=== PATIENT | female | born 1945 | race Caucasian/White ===

== ENCOUNTER 2022-09-24 00:49 | Inpatient (IN) | payer BC ==
[~2022-09-24] VITALS: Ht 165.1 cm; Wt 61.9 kg
[2022-09-24] MEDS ORDERED: ONDANSETRON ODT 4 MG TAB PO ONE (02:00)
[2022-09-24 02:10] LABS: Hemoglobin 12.4 g/dL (12.2-16.2); Mean Corpuscular Volume 94.5 fL (80.0-100.0)
[2022-09-24 02:12] LABS: Hematocrit 36.3 % (36.0-46.0); Mean Corpuscular Hemoglobin 32.3 pg (28.0-32.0); Mean Corpuscular Hgb Conc. 34.1 g/dL (32.0-36.0); Red Blood Cells 3.84 10^6/uL (4.0-5.20); Red Cell Distribution Width 19.9 % (11.8-14.3); White Blood Cell 28.1 10^3/uL (4.4-10.8)
[2022-09-24 02:24] LABS: Basophils % (manual) 0 (0.0-2.0); Blast Cells 0; Eosinophils % (manual) 0 (0-7); Metamyelocytes % 0; Myelocytes % 0; Promyelocytes % 0; Reactive Lymphocytes 0
[2022-09-24 02:31] LABS: INR 1.06 (0.9-1.15); Partial Thromboplastin Time 29.1 sec (24.6-33.4)
[2022-09-24 02:36] LABS: Albumin 2.9 g/dL (3.4-5.0); Calcium 8.9 mg/dL (8.5-10.1); Potassium 3.6 mmol/L (3.5-5.1)
[2022-09-24 02:39] LABS: Bilirubin, Total 1.1 mg/dL (0.2-1.0); Total Protein 6.8 g/dL (6.4-8.2)
[2022-09-24 02:54] LABS: Band Neutrophils % (manual) 20; Lymphocytes % (manual) 5 (10.0-50.0); Monocytes % (manual) 2 (0-12)
[2022-09-24] MEDS ORDERED: PIPERACILLIN-TAZOB 3.375GM 100 ML IV ONE (04:30)
[2022-09-24] MEDS ORDERED: LACTATED RINGER'S 1,500 ML IV ONE (04:30)
[2022-09-24] MEDS ORDERED: OXYCODONE W/ ACETAMINOPHEN 5/325MG TABLET PO ONE (05:04)
[2022-09-24] MEDS: VANCOMYCIN 1GM/250ML 250 ML IV ONE ×2 (05:20→06:37)
[2022-09-24] MEDS ORDERED: VANCOMYCIN PER PHARMACY 0 MG IV SCH (07:00)
[2022-09-24] MEDS ORDERED: DOCUSATE SOD 100 MG CAP PO PRN (07:00)
[2022-09-24] MEDS ORDERED: NITROGLYCERIN 0.4 MG SL TAB SL PRN (07:00)
[2022-09-24] MEDS ORDERED: ALBUMIN 25% 100 ML IV ONE (07:00)
[2022-09-24] MEDS: PIPERACILLIN-TAZOB 3.375GM 100 ML IV SCH ×2 (07:32→15:41)
[2022-09-24 07:44] LABS: Hematocrit 32.2 % (36.0-46.0); Hemoglobin 10.6 g/dL (12.2-16.2); Mean Corpuscular Hemoglobin 31.3 pg (28.0-32.0); Red Blood Cells 3.39 10^6/uL (4.0-5.20); Red Cell Distribution Width 19.9 % (11.8-14.3); White Blood Cell 26.4 10^3/uL (4.4-10.8)
[2022-09-24 07:50] LABS: Basophils % (manual) 0 (0.0-2.0); Blast Cells 0; Eosinophils % (manual) 0 (0-7); Metamyelocytes % 0; Myelocytes % 0; Promyelocytes % 0
[2022-09-24 07:58] LABS: Albumin 2.2 g/dL (3.4-5.0); Calcium 7.9 mg/dL (8.5-10.1); Potassium 3.1 mmol/L (3.5-5.1)
[2022-09-24 08:01] LABS: Total Protein 5.5 g/dL (6.4-8.2)
[2022-09-24] MEDS: SODIUM CHLORIDE 0.9% 1,000 ML IV SCH ×2 (08:20→23:50)
[2022-09-24 09:35] LABS: Band Neutrophils % (manual) 7; Lymphocytes % (manual) 4 (10.0-50.0); Monocytes % (manual) 5 (0-12); Reactive Lymphocytes 1
[2022-09-24] MEDS: FAMOTIDINE (10MG/ML) 2ML VL IV SCH (09:41)
[2022-09-24] MEDS: APIXABAN 2.5 MG TAB PO SCH ×2 (09:42→22:11)
[2022-09-24] MEDS ORDERED: ASCORBIC ACID 500 MG TAB PO SCH (10:00)
[2022-09-24] MEDS ORDERED: ZINC SULFATE 220mg CAP or TAB PO SCH (10:00)
[2022-09-24] MEDS: MORPHINE SULFATE INJ 2 MG/ml SYRG IV PRN ×2 (12:05→18:49)
[2022-09-24] MEDS ORDERED: VANCOMYCIN 750mg/250ml 250 ML IV SCH (18:30)
[2022-09-24] MEDS: VANCOMYCIN HCL 125MG/5ML ORAL SOL PO SCH (19:30)
[2022-09-24] MEDS: metroNIDAZOLE 500MG/100ML 100 ML IV SCH (22:11)
[2022-09-24] MEDS: POTASSIUM EFFERVESENT TAB 25 MEQ PO SCH (22:11)
[2022-09-24] MEDS: HYDROcodone-ACET 5/325MG TAB PO PRN (22:48)
[2022-09-24] MEDS: ONDANSETRON HCL 4 MG/2 ML VIAL IV PRN (22:48)
[2022-09-25 00:21] VITALS: BP 92/47
[2022-09-25] MEDS: POTASSIUM EFFERVESENT TAB 25 MEQ PO SCH (02:54)
[2022-09-25] MEDS: HYDROcodone-ACET 5/325MG TAB PO PRN ×4 (02:55→21:50)
[2022-09-25 05:00] VITALS: BP 91/44
[2022-09-25] MEDS: metroNIDAZOLE 500MG/100ML 100 ML IV SCH ×3 (05:42→21:50)
[2022-09-25] MEDS: ACETAMINOPHEN 325 MG TAB PO PRN ×2 (05:42→20:10)
[2022-09-25 05:52] LABS: Basophils # (auto) 0.1 10 ^3/uL (0-0.2); Basophils % (auto) 0.3 % (0.0-2.0); Eosinophils # (auto) 0 10 ^3/uL (0-0.8); Hematocrit 34.7 % (36.0-46.0); Hemoglobin 11.3 g/dL (12.2-16.2); Lymphocytes # (auto) 1.4 10 ^3/uL (0.4-5.4); Lymphocytes % (auto) 6.7 % (10.0-50.0); Mean Corpuscular Hemoglobin 32.2 pg (28.0-32.0); Mean Corpuscular Hgb Conc. 32.6 g/dL (32.0-36.0); Mean Corpuscular Volume 98.7 fL (80.0-100.0); Monocytes # (auto) 0.8 10 ^3/uL (0-1.3); Monocytes % (auto) 4.1 % (0.0-12.0); Neutrophils # (auto) 18.1 10 ^3/uL (1.6-8.6); Neutrophils % (auto) 88.9 % (37.0-80.0); Red Blood Cells 3.51 10^6/uL (4.0-5.20); White Blood Cell 20.4 10^3/uL (4.4-10.8)
[2022-09-25 05:58] LABS: Red Cell Distribution Width 20.2 % (11.8-14.3)
[2022-09-25 06:28] LABS: Albumin 2.1 g/dL (3.4-5.0); Potassium 3.6 mmol/L (3.5-5.1)
[2022-09-25 06:34] LABS: BUN/Creatinine Ratio 17.6 (10.0-20.0); Bilirubin, Total 1.5 mg/dL (0.2-1.0); Calcium 7.8 mg/dL (8.5-10.1); Magnesium 1.3 mg/dL (1.6-2.6); Total Protein 5.4 g/dL (6.4-8.2)
[2022-09-25] MEDS: VANCOMYCIN HCL 125MG/5ML ORAL SOL PO SCH ×2 (06:42)
[2022-09-25 09:56] VITALS: BP 106/49
[2022-09-25] MEDS: ONDANSETRON HCL 4 MG/2 ML VIAL IV PRN ×3 (11:20→23:31)
[2022-09-25] MEDS: levoFLOXacin 500MG 100 ML IV SCH (11:21)
[2022-09-25] MEDS: FAMOTIDINE (10MG/ML) 2ML VL IV SCH (11:21)
[2022-09-25] MEDS: APIXABAN 2.5 MG TAB PO SCH ×2 (11:30→21:50)
[2022-09-25] MEDS: VANCOMYCIN HCL 500MG/5ML ORAL SOL PO SCH ×3 (12:00→23:32)
[2022-09-25 13:20] VITALS: BP 93/50
[2022-09-25] MEDS: SODIUM CHLORIDE 0.9% 1,000 ML IV SCH (16:55)
[2022-09-25 17:43] VITALS: BP 104/49
[2022-09-25 21:49] VITALS: BP 101/47
[2022-09-26] MEDS: HYDROcodone-ACET 5/325MG TAB PO PRN ×2 (04:28→09:01)
[2022-09-26] MEDS: ONDANSETRON HCL 4 MG/2 ML VIAL IV PRN ×3 (04:58→21:45)
[2022-09-26 05:00] VITALS: BP 102/47
[2022-09-26] MEDS: metroNIDAZOLE 500MG/100ML 100 ML IV SCH ×3 (05:27→22:08)
[2022-09-26] MEDS: VANCOMYCIN HCL 500MG/5ML ORAL SOL PO SCH ×3 (05:28→17:25)
[2022-09-26 09:00] VITALS: BP 97/49
[2022-09-26] MEDS: APIXABAN 2.5 MG TAB PO SCH ×2 (09:00→21:45)
[2022-09-26] MEDS: levoFLOXacin 500MG 100 ML IV SCH (09:01)
[2022-09-26] MEDS ORDERED: LEVOTHYROXINE SODIUM 25 MCG TAB PO ONE (10:45)
[2022-09-26] MEDS ORDERED: SODIUM CHLORIDE 0.9% 1,000 ML IV ONE (11:00)
[2022-09-26] MEDS: METOPROLOL TARTRATE 25 MG TAB PO SCH ×2 (11:00→22:37)
[2022-09-26] MEDS ORDERED: SUCRALFATE 1 GM TAB PO SCH (11:30)
[2022-09-26] MEDS: ALBUTEROL SULF 2.5 MG/0.5ML(0.5%) NEB SOLN NEB SCH ×2 (12:00→19:06)
[2022-09-26 12:31] LABS: Basophils # (auto) 0.1 10 ^3/uL (0-0.2); Basophils % (auto) 0.5 % (0.0-2.0); Eosinophils # (auto) 0 10 ^3/uL (0-0.8); Eosinophils % (auto) 0.3 % (0.0-7.0); Hematocrit 32.1 % (36.0-46.0); Hemoglobin 10.3 g/dL (12.2-16.2); Lymphocytes % (auto) 8.7 % (10.0-50.0); Mean Corpuscular Hemoglobin 31.9 pg (28.0-32.0); Mean Corpuscular Hgb Conc. 32.1 g/dL (32.0-36.0); Mean Corpuscular Volume 99.2 fL (80.0-100.0); Monocytes # (auto) 0.9 10 ^3/uL (0-1.3); Monocytes % (auto) 7.2 % (0.0-12.0); Neutrophils # (auto) 9.8 10 ^3/uL (1.6-8.6); Neutrophils % (auto) 83.3 % (37.0-80.0); Nucleated Red Blood Cells % 0.1 %; Red Blood Cells 3.24 10^6/uL (4.0-5.20); White Blood Cell 11.8 10^3/uL (4.4-10.8)
[2022-09-26 12:52] LABS: BUN/Creatinine Ratio 20.6 (10.0-20.0); Calcium 7.5 mg/dL (8.5-10.1)
[2022-09-26 12:57] LABS: Potassium 2.7 mmol/L (3.5-5.1)
[2022-09-26 13:00] VITALS: BP 100/61
[2022-09-26] MEDS: SODIUM CHLORIDE 0.9% 1,000 ML IV SCH (13:43)
[2022-09-26] MEDS ORDERED: POTASSIUM CHL 20 Meq TABLET PO ONE ×3 (14:15→18:30)
[2022-09-26] MEDS ORDERED: SOD CHL 0.9%/ KCL 40MEQ 1,000 ML IV ONE (14:15)
[2022-09-26] MEDS: ACETAMINOPHEN 325 MG TAB PO PRN (14:36)
[2022-09-26 17:00] VITALS: BP 99/54
[2022-09-26 21:46] VITALS: BP 104/80
[2022-09-26] MEDS ORDERED: PANTOPRAZOLE 40 MG TAB PO SCH (22:00)
[2022-09-26] MEDS: FLORASTOR (S. BOULARDII) 250 MG CAP PO SCH (22:37)
[2022-09-26] MEDS ORDERED: MAGNESIUM SULFATE 1GM/100ML 100 ML IV ONE (23:00)
[2022-09-27] MEDS: MAGNESIUM SULFATE 1GM/100ML 100 ML IV SCH ×4 (00:02→03:10)
[2022-09-27] MEDS: VANCOMYCIN HCL 500MG/5ML ORAL SOL PO SCH ×3 (00:59→12:10)
[2022-09-27] MEDS: ACETAMINOPHEN 325 MG TAB PO PRN (01:24)
[2022-09-27] MEDS: SODIUM CHLORIDE 0.9% 1,000 ML IV SCH (01:40)
[2022-09-27] MEDS ORDERED: MAGNESIUM SULFATE 1GM/100ML 100 ML IV SCH (02:00)
[2022-09-27 02:48] LABS: BUN/Creatinine Ratio 17.2 (10.0-20.0); Calcium 7.6 mg/dL (8.5-10.1); Potassium 3.3 mmol/L (3.5-5.1)
[2022-09-27 05:00] VITALS: BP 128/66
[2022-09-27] MEDS: metroNIDAZOLE 500MG/100ML 100 ML IV SCH ×2 (05:35→14:14)
[2022-09-27 06:09] LABS: Potassium 3.3 mmol/L (3.5-5.1)
[2022-09-27 06:12] LABS: Magnesium 2.1 mg/dL (1.6-2.6)
[2022-09-27] MEDS: ALBUTEROL SULF 2.5 MG/0.5ML(0.5%) NEB SOLN NEB SCH ×2 (06:37→12:38)
[2022-09-27 08:00] VITALS: BP 121/60
[2022-09-27] MEDS: ONDANSETRON HCL 4 MG/2 ML VIAL IV PRN ×2 (09:05→14:58)
[2022-09-27] MEDS: FLORASTOR (S. BOULARDII) 250 MG CAP PO SCH (09:05)
[2022-09-27] MEDS: APIXABAN 2.5 MG TAB PO SCH (09:06)
[2022-09-27] MEDS: METOPROLOL TARTRATE 25 MG TAB PO SCH (09:06)
[2022-09-27] MEDS: ACETAMINOPHEN PO PRN ×2 (09:07→14:59)
[2022-09-27] MEDS: OXYCODONE PO PRN ×2 (09:07→14:59)
[2022-09-27] MEDS ORDERED: buPROPion HCL 75 MG TAB PO SCH (10:00)
[2022-09-27 13:00] VITALS: BP 111/60
[2022-09-27] MEDS ORDERED: POTASSIUM EFFERVESENT TAB 25 MEQ PO ONE (14:00)
[2022-09-27] MEDS ORDERED: MET25T PO (14:17)
[2022-09-27] MEDS ORDERED: VANC125PO PO (14:17)
[2022-09-27] MEDS ORDERED: APIX2.5T PO (14:17)
== END 2022-09-27 18:45 | disposition home health service (06) | DRG 872 ==
LOC: ER 00:49 → TELE 07:24 → TELE-WESTW 23:24
PROVIDERS: ADMIT Nurse Practitioner Family; ATTEND Internal Medicine
DX: A41.9 Sepsis, unspecified organism (principal); E44.0 Moderate protein-calorie malnutrition; A04.71 Enterocolitis due to Clostridium difficile, recurrent; D75.839 Thrombocytosis, unspecified; Z20.822 Contact with and (suspected) exposure to COVID-19; E03.9 Hypothyroidism, unspecified; E86.0 Dehydration; E88.09 Other disorders of plasma-protein metabolism, not elsewhere classified; I48.0 Paroxysmal atrial fibrillation; J44.9 Chronic obstructive pulmonary disease, unspecified; I10 Essential (primary) hypertension; Z79.01 Long term (current) use of anticoagulants; Z68.22 Body mass index [BMI] 22.0-22.9, adult
CPT/HCPCS: 36415; 70450; 71045; 74176; 80048; 80053; 82962; 83690; 83735; 83880; 84132; 84484; 85007; 85025; 85027; 85610; 85730; 87040; 87045; 87081; 87426; 87427; 87493; 93005; 94640; 96365; 97110; 97116; 97163; 97530; G0378; J1956; J2405; J2543; J3490; P9047; Q0162

== ENCOUNTER 2022-12-08 22:20 | Inpatient (IN) | payer BC, MEDICAID ==
[~2022-12-08] VITALS: Ht 160 cm; Wt 55.0 kg
[~2022-12-08 22:20] MED LIST: APIX2.5T PO; MET25T PO; VANC125PO PO
[2022-12-08 23:57] LABS: Mean Corpuscular Hemoglobin 32.5 pg (28.0-32.0); Mean Corpuscular Hgb Conc. 33.4 g/dL (32.0-36.0); Mean Corpuscular Volume 97.3 fL (80.0-100.0); Red Blood Cells 4.31 10^6/uL (4.0-5.20); Red Cell Distribution Width 13.2 % (11.8-14.3); White Blood Cell 20.6 10^3/uL (4.4-10.8)
[2022-12-09] MEDS ORDERED: ACETAMINOPHEN 500 MG TAB PO ONE
[2022-12-09 00:04] LABS: Albumin 3.7 g/dL (3.4-5.0); BUN/Creatinine Ratio 21.8 (10.0-20.0); Potassium 4.1 mmol/L (3.5-5.1)
[2022-12-09 00:05] LABS: INR 1.12 (0.9-1.15); Partial Thromboplastin Time 30.7 SEC (24.5-34.5)
[2022-12-09 00:06] LABS: Bilirubin, Total 0.4 mg/dL (0.2-1.0); Total Protein 7.1 g/dL (6.4-8.2)
[2022-12-09 00:24] LABS: Basophils % (manual) 0 (0.0-2.0); Blast Cells 0; Eosinophils % (manual) 0 (0-7); Metamyelocytes % 0; Myelocytes % 0; Promyelocytes % 0; Reactive Lymphocytes 0
[2022-12-09 00:48] LABS: Urine Bacteria FEW /hpf (None Seen); Urine Blood Negative /uL (Negative); Urine WBC 1 /hpf (0 - 5)
[2022-12-09] MEDS ORDERED: VANCOMYCIN PER PHARMACY 0 MG IV SCH (01:15)
[2022-12-09] MEDS ORDERED: PIPERACILLIN-TAZO 4.5GM 100 ML IV ONE (01:15)
[2022-12-09] MEDS ORDERED: SODIUM CHLORIDE 0.9% 500 ML IV ONE (01:15)
[2022-12-09] MEDS ORDERED: IOHEXOL 350 MG/ML 100ML IJ ONE (01:38)
[2022-12-09 01:40] LABS: Band Neutrophils % (manual) 13; Lymphocytes % (manual) 9 (10.0-50.0); Monocytes % (manual) 6 (0-12)
[2022-12-09] MEDS ORDERED: OXYCODONE W/ ACETAMINOPHEN 5/325MG TABLET PO ONE (02:00)
[2022-12-09] MEDS ORDERED: VANCOMYCIN 1GM/250ML 250 ML IV ONE (02:00)
[2022-12-09] MEDS ORDERED: HYDROcodone-ACET 5/325MG TAB PO PRN (05:00)
[2022-12-09] MEDS ORDERED: ONDANSETRON HCL 4 MG/2 ML VIAL IV PRN (05:00)
[2022-12-09] MEDS ORDERED: ACETAMINOPHEN 325 MG TAB PO PRN (05:00)
[2022-12-09] MEDS ORDERED: DOCUSATE SOD 100 MG CAP PO PRN (05:00)
[2022-12-09] MEDS: SODIUM CHLORIDE 0.9% 1,000 ML IV SCH (05:44)
[2022-12-09] MEDS ORDERED: MORPHINE SULFATE INJ 2 MG/ml SYRG IV PRN (06:30)
[2022-12-09] MEDS ORDERED: NITROGLYCERIN 0.4 MG SL TAB SL PRN (06:30)
[2022-12-09 07:45] LABS: Albumin 3.5 g/dL (3.4-5.0); Calcium 8.9 mg/dL (8.5-10.1); Potassium 3.4 mmol/L (3.5-5.1)
[2022-12-09 07:50] LABS: Bilirubin, Total 0.9 mg/dL (0.2-1.0); Total Protein 7.1 g/dL (6.4-8.2)
[2022-12-09 08:00] LABS: Hematocrit 43.6 % (36.0-46.0); Hemoglobin 14.1 g/dL (12.2-16.2); Mean Corpuscular Hemoglobin 32.4 pg (28.0-32.0); Mean Corpuscular Hgb Conc. 32.5 g/dL (32.0-36.0); Mean Corpuscular Volume 99.9 fL (80.0-100.0); Red Blood Cells 4.36 10^6/uL (4.0-5.20); Red Cell Distribution Width 13.3 % (11.8-14.3); White Blood Cell 22.6 10^3/uL (4.4-10.8)
[2022-12-09 08:07] LABS: Basophils % (manual) 0 (0.0-2.0); Blast Cells 0; Eosinophils % (manual) 0 (0-7); Metamyelocytes % 0; Myelocytes % 0; Promyelocytes % 0; Reactive Lymphocytes 0
[2022-12-09 09:28] LABS: Band Neutrophils % (manual) 1; Lymphocytes % (manual) 10 (10.0-50.0); Monocytes % (manual) 5 (0-12)
[2022-12-09] MEDS: APIXABAN 2.5 MG TAB PO SCH ×2 (09:54→23:15)
[2022-12-09] MEDS ORDERED: PIPERACILLIN-TAZOB 3.375GM 100 ML IV SCH (10:00)
[2022-12-09] MEDS ORDERED: POTASSIUM CHL 20MEQ/100ML 100 ML IV ONE (11:00)
[2022-12-09] MEDS ORDERED: SODIUM CHLORIDE 0.9% 1,000 ML IV ONE (11:00)
[2022-12-09] MEDS ORDERED: IOHEXOL 300 MG/ML 100ML BOTTLE IJ ONE (11:39)
[2022-12-09] MEDS: ALBUTEROL SULF 2.5 MG/0.5ML(0.5%) NEB SOLN NEB SCH ×2 (13:00→19:21)
[2022-12-09] MEDS: metroNIDAZOLE 500MG/100ML 100 ML IV SCH ×2 (14:38→23:11)
[2022-12-09] MEDS: OXYCODONE W/ ACETAMINOPHEN 5/325MG TABLET PO PRN ×2 (14:39→20:44)
[2022-12-09] MEDS: VANCOMYCIN HCL 125MG/5ML ORAL SOL GT SCH ×3 (15:10→23:17)
[2022-12-09 16:22] VITALS: BP 94/43
[2022-12-10] MEDS: SODIUM CHLORIDE 0.9% 1,000 ML IV SCH ×2 (02:11→14:20)
[2022-12-10] MEDS: OXYCODONE W/ ACETAMINOPHEN 5/325MG TABLET PO PRN ×2 (03:37→10:17)
[2022-12-10] MEDS: VANCOMYCIN HCL 125MG/5ML ORAL SOL GT SCH ×2 (05:23→12:57)
[2022-12-10] MEDS: metroNIDAZOLE 500MG/100ML 100 ML IV SCH ×2 (05:24→14:00)
[2022-12-10 05:33] LABS: Basophils # (auto) 0 10 ^3/uL (0-0.2); Basophils % (auto) 0.2 % (0.0-2.0); Eosinophils # (auto) 0.3 10 ^3/uL (0-0.8); Eosinophils % (auto) 2.2 % (0.0-7.0); Hematocrit 37.1 % (36.0-46.0); Hemoglobin 12.4 g/dL (12.2-16.2); Lymphocytes # (auto) 1.5 10 ^3/uL (0.4-5.4); Lymphocytes % (auto) 10.6 % (10.0-50.0); Mean Corpuscular Hemoglobin 32.5 pg (28.0-32.0); Mean Corpuscular Hgb Conc. 33.5 g/dL (32.0-36.0); Mean Corpuscular Volume 97.1 fL (80.0-100.0); Monocytes # (auto) 0.8 10 ^3/uL (0-1.3); Monocytes % (auto) 5.5 % (0.0-12.0); Neutrophils # (auto) 11.8 10 ^3/uL (1.6-8.6); Neutrophils % (auto) 81.5 % (37.0-80.0); Nucleated Red Blood Cells % 0.1 %; Red Blood Cells 3.82 10^6/uL (4.0-5.20); Red Cell Distribution Width 13.3 % (11.8-14.3); White Blood Cell 14.5 10^3/uL (4.4-10.8)
[2022-12-10 05:46] LABS: Albumin 2.8 g/dL (3.4-5.0); BUN/Creatinine Ratio 20.6 (10.0-20.0); Bilirubin, Total 0.4 mg/dL (0.2-1.0); Calcium 8.6 mg/dL (8.5-10.1); Total Protein 5.9 g/dL (6.4-8.2)
[2022-12-10] MEDS ORDERED: LEVOTHYROXINE SODIUM 50 MCG TAB PO SCH (07:00)
[2022-12-10] MEDS: ALBUTEROL SULF 2.5 MG/0.5ML(0.5%) NEB SOLN NEB SCH ×3 (07:06→13:09)
[2022-12-10] MEDS ORDERED: POTASSIUM CHL 20 Meq TABLET PO SCH (10:00)
[2022-12-10] MEDS: APIXABAN 2.5 MG TAB PO SCH (10:16)
[2022-12-10 13:00] VITALS: BP 114/68
[2022-12-10] MEDS ORDERED: POTASSIUM CHL 20MEQ/100ML 100 ML IV SCH (14:00)
[2022-12-10] MEDS ORDERED: POTA-220 PO (14:01)
[2022-12-10] MEDS ORDERED: VANC125PO PO (14:01)
[2022-12-10] MEDS ORDERED: LEV50T PO (14:06)
== END 2022-12-10 16:00 | disposition home health service (06) | DRG 871 ==
LOC: EDBD 22:20 → ER 22:20 → TELE 12-09 06:20 → TELE-WESTW 12-10 13:59
PROVIDERS: ADMIT Nurse Practitioner Family; ATTEND Internal Medicine
DX: A41.9 Sepsis, unspecified organism (principal); J96.01 Acute respiratory failure with hypoxia; A04.72 Enterocolitis due to Clostridium difficile, not specified as recurrent; E03.9 Hypothyroidism, unspecified; E87.6 Hypokalemia; I10 Essential (primary) hypertension; I48.0 Paroxysmal atrial fibrillation; J43.9 Emphysema, unspecified; R26.81 Unsteadiness on feet; Z20.822 Contact with and (suspected) exposure to COVID-19; Z86.19 Personal history of other infectious and parasitic diseases
CPT/HCPCS: 36415; 36600; 71045; 74177; 80053; 81001; 82805; 83605; 83880; 84484; 85007; 85025; 85027; 85379; 85610; 85730; 87040; 87426; 87493; 87804; 94640; 96361; 96365; 96367; 96375; 97163; G0378; J2405; J2543; J3480; J3490

== ENCOUNTER 2023-06-28 13:24 | Inpatient (IN) | payer BC, MEDICAID ==
[~2023-06-28] VITALS: Ht 166.4 cm; Wt 48.4 kg
[~2023-06-28 13:24] MED LIST changes: +LEV50T PO; +POTA-220 PO
[2023-06-28 14:58] LABS: Basophils # (auto) 0.1 10 ^3/uL (0-0.2); Basophils % (auto) 0.5 % (0.0-2.0); Eosinophils # (auto) 0 10 ^3/uL (0-0.8); Eosinophils % (auto) 0.3 % (0.0-7.0); Monocytes # (auto) 0.6 10 ^3/uL (0-1.3); Nucleated Red Blood Cells % 0.1 %
[2023-06-28 15:01] LABS: Hematocrit 25.2 % (36.0-46.0); Hemoglobin 7.5 g/dL (12.2-16.2); Lymphocytes # (auto) 2.2 10 ^3/uL (0.4-5.4); Lymphocytes % (auto) 17.7 % (10.0-50.0); Mean Corpuscular Hemoglobin 22.7 pg (28.0-32.0); Mean Corpuscular Hgb Conc. 29.9 g/dL (32.0-36.0); Neutrophils # (auto) 9.4 10 ^3/uL (1.6-8.6); Neutrophils % (auto) 76.5 % (37.0-80.0); Red Blood Cells 3.32 10^6/uL (4.0-5.20); Red Cell Distribution Width 16.8 % (11.8-14.3); White Blood Cell 12.3 10^3/uL (4.4-10.8)
[2023-06-28 15:22] LABS: Alanine Aminotransferase 18 U/L (7-40); Albumin 4.2 g/dL (3.2-4.8); Alkaline Phosphatase 83 U/L (46-116); Anion Gap 5 (5-15); Aspartate Aminotransferase 23 U/L (13-40); BUN/Creatinine Ratio 22.6 (10.0-20.0); Blood Urea Nitrogen 21 mg/dL (9-23); Carbon Dioxide 34 mmol/L (20-30); Chloride 98 mmol/L (98-107); Glucose 111 mg/dL (74-106); Potassium 3.4 mmol/L (3.5-5.1); Sodium 137 mmol/L (136-145)
[2023-06-28 15:23] LABS: Bilirubin, Total 0.3 mg/dL (0.2-1.0); Total Protein 6.3 g/dL (5.7-8.2)
[2023-06-28] MEDS ORDERED: IPRATROPIUM BROM 0.5 MG/2.5ML INH SOL NEB ONE (15:45)
[2023-06-28] MEDS ORDERED: methylPREDNISolone SOD SUCC 125 MG/2 ML VL IV ONE (15:45)
[2023-06-28] MEDS ORDERED: ALBUTEROL SULF 2.5 MG/0.5ML(0.5%) NEB SOLN NEB ONE (15:45)
[2023-06-28 16:53] LABS: Base Excess 7.5 mmol/L (-2.0-2.0)
[2023-06-28 18:25] LABS: Ferritin 4.7 ng/mL (10-291)
[2023-06-28 18:26] LABS: Folate (Folic Acid) > 24.00 ng/mL (>5.38)
[2023-06-28 18:30] LABS: % Iron Saturation 3.6 % (15-50)
[2023-06-28 21:22] LABS: Urine Bacteria NONE SEEN /hpf (None Seen); Urine Blood Negative /uL (Negative); Urine Clarity Clear (Clear); Urine Color Yellow (Yellow); Urine Hyaline Cast FEW /lpf (0 - 2); Urine Protein, UAD 1+ (Negative); Urine Specific Gravity 1.025 (1.001-1.035); Urine Urobilinogen Normal (Negative); Urine WBC 2 /hpf (0 - 5); Urine pH 6.5 (5.0-8.0)
[2023-06-28 22:45] VITALS: PULSE 70; RESP 20; O2SAT 96
[2023-06-28] MEDS: ACETAMINOPHEN 325 MG TAB PO PRN (23:27)
[2023-06-28] MEDS: METOPROLOL TARTRATE 25 MG TAB PO SCH (23:27)
[2023-06-29] VITALS (14 sets, daily range): BP systolic 101–116; BP diastolic 43–68; PULSE 61–86; RESP 16–22; TEMP 97.9–98.7; O2SAT 93–100
[2023-06-29] MEDS ORDERED: MORPHINE SULFATE INJ 2 MG/ml SYRG IV PRN
[2023-06-29] MEDS: OXYCODONE W/ ACETAMINOPHEN 5/325MG TABLET PO PRN ×2 (00:10→06:41)
[2023-06-29] MEDS ORDERED: POTASSIUM EFFERVESENT TAB 25 MEQ PO ONE (01:45)
[2023-06-29] MEDS ORDERED: LEVOTHYROXINE SODIUM 25 MCG TAB PO SCH (07:00)
[2023-06-29] MEDS: ACETAMINOPHEN 325 MG TAB PO PRN (07:57)
[2023-06-29] MEDS: FERROUS SULFATE 325mg EC TAB PO SCH ×3 (08:53→18:25)
[2023-06-29] MEDS ORDERED: PANTOPRAZOLE 40 MG/10 ML VIAL INJ IV SCH (10:00)
[2023-06-29] MEDS ORDERED: SODIUM CHLORIDE LOCK 10 ML ONE (10:06)
[2023-06-29] MEDS ORDERED: LIDOCAINE VISCOUS 2% 15ML UD ONE (10:06)
[2023-06-29] MEDS ORDERED: diphenhdrAMINE HCL 50 MG/1 ML VL ONE (10:07)
[2023-06-29] MEDS ORDERED: NALOXONE HCL 0.4 MG/ML VIAL ONE (10:08)
[2023-06-29] MEDS ORDERED: FLUMAZENIL 0.1 MG/ML INJ 10ML MDV IV ONE (10:08)
[2023-06-29] MEDS ORDERED: SIMETHICONE 40 MG/0.6 ML ORAL DROP ONE (10:13)
[2023-06-29] MEDS: PANTOPRAZOLE 40mg/50ML NS AE 50 ML IV SCH ×3 (10:46→18:15)
[2023-06-29] MEDS: METOPROLOL TARTRATE 25 MG TAB PO SCH (10:49)
[2023-06-29 11:42] LABS: Eosinophils # (auto) 0 10 ^3/uL (0-0.8)
[2023-06-29 11:44] LABS: Basophils # (auto) 0 10 ^3/uL (0-0.2); Basophils % (auto) 0.3 % (0.0-2.0); Eosinophils % (auto) 0.2 % (0.0-7.0); Hematocrit 26.6 % (36.0-46.0); Lymphocytes # (auto) 2.4 10 ^3/uL (0.4-5.4); Lymphocytes % (auto) 20.4 % (10.0-50.0); Mean Corpuscular Hemoglobin 23.5 pg (28.0-32.0); Mean Corpuscular Hgb Conc. 30.2 g/dL (32.0-36.0); Mean Corpuscular Volume 77.7 fL (80.0-100.0); Monocytes # (auto) 0.9 10 ^3/uL (0-1.3); Monocytes % (auto) 7.7 % (0.0-12.0); Neutrophils # (auto) 8.4 10 ^3/uL (1.6-8.6); Neutrophils % (auto) 71.4 % (37.0-80.0); Red Blood Cells 3.42 10^6/uL (4.0-5.20); Red Cell Distribution Width 16.7 % (11.8-14.3); White Blood Cell 11.8 10^3/uL (4.4-10.8)
[2023-06-29 11:50] LABS: Chloride 96 mmol/L (98-107); Sodium 134 mmol/L (136-145)
[2023-06-29 11:51] LABS: Anion Gap 5 (5-15); Calcium 9.4 mg/dL (8.5-10.1); Carbon Dioxide 33 mmol/L (20-30)
[2023-06-29 11:56] LABS: BUN/Creatinine Ratio 17.7 (10.0-20.0); Blood Urea Nitrogen 23 mg/dL (9-23); Glucose 81 mg/dL (74-106)
[2023-06-29] MEDS ORDERED: IRON SUCROSE COMPLEX 100 ML IV SCH (12:00)
[2023-06-29 12:11] LABS: INR 1.04 (0.9-1.15); Partial Thromboplastin Time 22.8 SEC (24.5-34.5); Prothrombin Time 10.9 sec (9.3-11.8)
[2023-06-29] MEDS: fentaNYL CITRATE 100 MCG/2 ML VL ONE ×2 (13:04→13:09)
[2023-06-29] MEDS: MIDAZOLAM HCL 5 MG/ML-1ML VIAL ONE ×2 (13:04→13:09)
[2023-06-29] MEDS ORDERED: POLY335015 PO (17:09)
[2023-06-29] MEDS ORDERED: FER325T PO (17:09)
[2023-06-29] MEDS ORDERED: DOCU-94 PO (17:09)
[2023-06-29] MEDS ORDERED: SUCR1TAB22 PO (17:09)
[2023-06-29] MEDS ORDERED: PANT40T PO (17:09)
== END 2023-06-29 20:30 | disposition home health service (06) | DRG 812 ==
LOC: ER 13:24 → TELE 17:30 → TELE-CENTR 23:38
PROVIDERS: ADMIT Internal Medicine; ATTEND Internal Medicine
PROC: 30233N1 Transfusion of Nonautologous Red Blood Cells into Peripheral Vein, Percutaneous Approach (ICD-10-PCS; 2023-06-29)
PROC: 0DB78ZX Excision of Stomach, Pylorus, Via Natural or Artificial Opening Endoscopic, Diagnostic (ICD-10-PCS; principal; 2023-06-29 12:59)
DX: D50.9 Iron deficiency anemia, unspecified (principal); J96.10 Chronic respiratory failure, unspecified whether with hypoxia or hypercapnia; K31.5 Obstruction of duodenum; K31.1 Adult hypertrophic pyloric stenosis; K31.84 Gastroparesis; I48.0 Paroxysmal atrial fibrillation; E03.9 Hypothyroidism, unspecified; G89.4 Chronic pain syndrome; F41.9 Anxiety disorder, unspecified; J43.9 Emphysema, unspecified; R13.10 Dysphagia, unspecified; I10 Essential (primary) hypertension; M54.50 Low back pain, unspecified; Z96.649 Presence of unspecified artificial hip joint; Z90.49 Acquired absence of other specified parts of digestive tract; Z79.01 Long term (current) use of anticoagulants; Z99.81 Dependence on supplemental oxygen; Z80.0 Family history of malignant neoplasm of digestive organs
CPT/HCPCS: 36415; 36600; 43239; 71045; 80048; 80053; 81001; 82270; 82607; 82728; 82746; 82805; 83540; 83550; 83605; 83880; 84484; 85025; 85379; 85610; 85730; 86850; 86900; 86901; 86920; 93005; 94640; 96374; 97163; G0378; J1756; J2250

== ENCOUNTER 2024-03-01 13:33 | Emergency (ER) | payer BC, MEDICAID ==
[~2024-03-01] VITALS: Ht 162.6 cm; Wt 56.0 kg
[~2024-03-01 13:33] MED LIST changes: -APIX2.5T PO; +DOCU-94 PO; +FER325T PO; -LEV50T PO; +LEVO-848 PO; +PANT40T PO; +POLY335015 PO; -POTA-220 PO; +SUCR1TAB31 PO; -VANC125PO PO
[2024-03-01 14:32] LABS: Eosinophils # (auto) 0 10 ^3/uL (0-0.8); Hemoglobin 10.2 g/dL (12.2-16.2); Lymphocytes # (auto) 1.1 10 ^3/uL (0.4-5.4); Monocytes # (auto) 0.6 10 ^3/uL (0-1.3); Red Cell Distribution Width 14.2 % (11.8-14.3)
[2024-03-01 14:34] LABS: Basophils # (auto) 0.1 10 ^3/uL (0-0.2); Basophils % (auto) 0.5 % (0.0-2.0); Eosinophils % (auto) 0.2 % (0.0-7.0); Hematocrit 30.2 % (36.0-46.0); Lymphocytes % (auto) 8.8 % (10.0-50.0); Mean Corpuscular Hemoglobin 37.7 pg (28.0-32.0); Mean Corpuscular Hgb Conc. 33.9 g/dL (32.0-36.0); Mean Corpuscular Volume 111.1 fL (80.0-100.0); Monocytes % (auto) 4.5 % (0.0-12.0); Platelet Count (auto) 474 10^3/uL (140-450); Red Blood Cells 2.72 10^6/uL (4.0-5.20); White Blood Cell 12.7 10^3/uL (4.4-10.8)
[2024-03-01 14:48] LABS: Base Excess 4.8 mmol/L (-2.0-3.0)
[2024-03-01 14:49] LABS: Alanine Aminotransferase 15 U/L (7-40); Albumin 4.1 g/dL (3.2-4.8); Alkaline Phosphatase 83 U/L (46-116); Anion Gap 5 (5-15); Aspartate Aminotransferase 16 U/L (13-40); BUN/Creatinine Ratio 22.5 (10.0-20.0); Blood Urea Nitrogen 20 mg/dL (9-23); Calcium 9.7 mg/dL (8.7-10.4); Carbon Dioxide 34 mmol/L (20-30); Chloride 100 mmol/L (98-107); Glucose 113 mg/dL (74-106); Potassium 3.3 mmol/L (3.5-5.1); Sodium 139 mmol/L (136-145)
[2024-03-01 14:50] LABS: Bilirubin, Total 0.2 mg/dL (0.2-1.0); Total Protein 6.3 g/dL (5.7-8.2)
[2024-03-01] MEDS: IPRATROPIUM BROM 0.5 MG/2.5ML INH SOL NEB ONE (15:24)
[2024-03-01] MEDS: ALBUTEROL SULF 2.5 MG/0.5ML(0.5%) NEB SOLN NEB ONE (15:24)
[2024-03-01] MEDS: methylPREDNISolone SOD SUCC 125 MG/2 ML VL IM ONE (15:34)
[2024-03-01 15:39] VITALS: RESP 18; O2SAT 100
[2024-03-01] MEDS: levoFLOXacin 500MG 100 ML IV SCH (16:15)
[2024-03-01] MEDS ORDERED: LEVO500T91 PO (17:20)
[2024-03-01] MEDS ORDERED: PRED20TA2 PO (17:22)
[2024-03-01 18:10] VITALS: BP 105/62; PULSE 63; RESP 18; TEMP 97.8; O2SAT 100
== END 2024-03-01 18:15 | disposition home or self-care (01) ==
LOC: ER 13:33
DX: J44.1 Chronic obstructive pulmonary disease with (acute) exacerbation (principal); D72.829 Elevated white blood cell count, unspecified; E87.3 Alkalosis; R06.03 Acute respiratory distress; I10 Essential (primary) hypertension; Z90.49 Acquired absence of other specified parts of digestive tract
CPT/HCPCS: 36415; 36600; 71045; 80053; 82805; 83605; 83880; 84484; 85025; 85379; 93005; 94640; 96372; 99285; J2919

== ENCOUNTER 2024-03-12 12:37 | Inpatient (IN) | payer BC, MEDICAID ==
[~2024-03-12] VITALS: Ht 167.6 cm; Wt 56.5 kg
[~2024-03-12 12:37] MED LIST changes: +LEVO500T91 PO; +PRED20TA2 PO
[2024-03-12 14:31] LABS: Basophils # (auto) 0.1 10 ^3/uL (0-0.2); Eosinophils # (auto) 0 10 ^3/uL (0-0.8); Monocytes # (auto) 0.4 10 ^3/uL (0-1.3); Monocytes % (auto) 2.1 % (0.0-12.0); Nucleated Red Blood Cells % 0.1 %
[2024-03-12 14:32] LABS: Basophils % (auto) 0.4 % (0.0-2.0); Hematocrit 34.3 % (36.0-46.0); Hemoglobin 11.3 g/dL (12.2-16.2); Lymphocytes # (auto) 1.2 10 ^3/uL (0.4-5.4); Lymphocytes % (auto) 6.4 % (10.0-50.0); Mean Corpuscular Hemoglobin 36.2 pg (28.0-32.0); Mean Corpuscular Hgb Conc. 32.9 g/dL (32.0-36.0); Mean Corpuscular Volume 109.9 fL (80.0-100.0); Neutrophils # (auto) 17.3 10 ^3/uL (1.6-8.6); Neutrophils % (auto) 91.1 % (37.0-80.0); Platelet Count (auto) 625 10^3/uL (140-450); Red Blood Cells 3.12 10^6/uL (4.0-5.20); Red Cell Distribution Width 14.1 % (11.8-14.3)
[2024-03-12 15:11] LABS: Alanine Aminotransferase 20 U/L (7-40); Albumin 4.2 g/dL (3.2-4.8); Alkaline Phosphatase 65 U/L (46-116); Anion Gap 7 (5-15); Aspartate Aminotransferase 14 U/L (13-40); BUN/Creatinine Ratio 24.1 (10.0-20.0); Bilirubin, Total 0.2 mg/dL (0.2-1.0); Blood Urea Nitrogen 20 mg/dL (9-23); Calcium 10.2 mg/dL (8.7-10.4); Carbon Dioxide 30 mmol/L (20-30); Chloride 99 mmol/L (98-107); Glucose 136 mg/dL (74-106); Potassium 4.5 mmol/L (3.5-5.1); Sodium 136 mmol/L (136-145)
[2024-03-12] MEDS ORDERED: methylPREDNISolone SOD SUCC 125 MG/2 ML VL IV ONE (15:30)
[2024-03-12] MEDS: ALBUTEROL SULF 2.5 MG/0.5ML(0.5%) NEB SOLN ONE (15:36)
[2024-03-12] MEDS: IPRATROPIUM BROM 0.5 MG/2.5ML INH SOL ONE (15:36)
[2024-03-12] MEDS: IPRATROPIUM BROM 0.5 MG/2.5ML INH SOL NEB ONE (16:00)
[2024-03-12] MEDS: ALBUTEROL SULF 2.5 MG/0.5ML(0.5%) NEB SOLN NEB ONE (16:00)
[2024-03-12 18:18] LABS: Base Excess 4.5 mmol/L (-2.0-3.0)
[2024-03-12 18:29] VITALS: PULSE 103; RESP 18; O2SAT 98
[2024-03-12] MEDS: ALBUTEROL SULF 2.5 MG/0.5ML(0.5%) NEB SOLN NEB SCH (18:29)
[2024-03-12] MEDS: IPRATROPIUM BROM 0.5 MG/2.5ML INH SOL NEB SCH (18:29)
[2024-03-12 18:35] VITALS: PULSE 106; RESP 18; O2SAT 99
[2024-03-12 19:20] VITALS: PULSE 103; RESP 18; O2SAT 98
[2024-03-12] MEDS ORDERED: methylPREDNISolone SOD SUCC 40 MG/ML VL IV SCH (22:00)
[2024-03-12 22:19] VITALS: RESP 16; O2SAT 99
[2024-03-12] MEDS: DOXYCYCLINE 100 MG TAB/CAP PO SCH (22:24)
[2024-03-13] VITALS (13 sets, daily range): BP systolic 97–121; BP diastolic 51–60; PULSE 69–94; RESP 16–19; TEMP 36.4; O2SAT 92–100
[2024-03-13] MEDS: HYDROcodone-ACET 5/325MG TAB PO ONE (00:23)
[2024-03-13] MEDS: methylPREDNISolone SOD SUCC 40 MG/ML VL IV SCH (03:12)
[2024-03-13] MEDS: ACETAMINOPHEN 325 MG TAB PO PRN (06:18)
[2024-03-13] MEDS: ONDANSETRON HCL 4 MG/2 ML VIAL IV PRN (06:28)
[2024-03-13] MEDS ORDERED: DOXY100C79 PO (08:46)
[2024-03-13] MEDS ORDERED: PRED20TA2 PO ×2 (08:46→14:44)
[2024-03-13] MEDS: HYDROcodone-ACET 5/325MG TAB PO PRN (10:32)
[2024-03-13] MEDS ORDERED: PANTOPRAZOLE 40 MG TAB PO ONE (15:00)
[2024-03-13] MEDS: PANTOPRAZOLE 40 MG TAB PO SCH (15:48)
[2024-03-14] MEDS ORDERED: LEVOTHYROXINE SODIUM 25 MCG TAB PO SCH (06:00)
[2024-03-14] MEDS ORDERED: PANTOPRAZOLE 40 MG TAB PO SCH (06:00)
== END 2024-03-13 17:32 | disposition home health service (06) | DRG 189 ==
LOC: ER 12:37 → TELE 17:08 → TELE-EAST 23:40
PROVIDERS: ADMIT Internal Medicine; ATTEND Internal Medicine
DX: J96.21 Acute and chronic respiratory failure with hypoxia (principal); J44.1 Chronic obstructive pulmonary disease with (acute) exacerbation; I10 Essential (primary) hypertension; E03.9 Hypothyroidism, unspecified; K21.9 Gastro-esophageal reflux disease without esophagitis; M54.50 Low back pain, unspecified; G89.29 Other chronic pain; D50.9 Iron deficiency anemia, unspecified; I48.91 Unspecified atrial fibrillation; Z79.01 Long term (current) use of anticoagulants; Z90.49 Acquired absence of other specified parts of digestive tract; Z99.81 Dependence on supplemental oxygen; Z82.0 Family history of epilepsy and other diseases of the nervous system; Z82.49 Family history of ischemic heart disease and other diseases of the circulatory system; Z80.0 Family history of malignant neoplasm of digestive organs
CPT/HCPCS: 36415; 36600; 71045; 80053; 82805; 83880; 84484; 85025; 87040; 94640; G0378; J2405

== ENCOUNTER 2024-04-14 10:47 | Inpatient (IN) | payer BC, MEDICAID ==
[~2024-04-14] VITALS: Ht 167.6 cm; Wt 61.0 kg
[~2024-04-14 10:47] MED LIST changes: +DOXY100C79 PO; -LEVO500T91 PO
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
[2024-04-14 11:31] LABS: Basophils # (auto) 0 10 ^3/uL (0-0.2); Eosinophils # (auto) 0 10 ^3/uL (0-0.8); Hemoglobin 8.8 g/dL (12.2-16.2); Monocytes # (auto) 0.3 10 ^3/uL (0-1.3); Monocytes % (auto) 1.3 % (0.0-12.0)
[2024-04-14 11:33] LABS: Basophils % (auto) 0.1 % (0.0-2.0); Hematocrit 28.2 % (36.0-46.0); Lymphocytes # (auto) 0.6 10 ^3/uL (0.4-5.4); Lymphocytes % (auto) 2.9 % (10.0-50.0); Mean Corpuscular Hemoglobin 35.2 pg (28.0-32.0); Mean Corpuscular Hgb Conc. 31.2 g/dL (32.0-36.0); Neutrophils # (auto) 19.5 10 ^3/uL (1.6-8.6); Neutrophils % (auto) 95.7 % (37.0-80.0); Nucleated Red Blood Cells % 0.4 %; Platelet Count (auto) 514 10^3/uL (140-450); Red Blood Cells 2.49 10^6/uL (4.0-5.20); Red Cell Distribution Width 16.3 % (11.8-14.3); White Blood Cell 20.4 10^3/uL (4.4-10.8)
[2024-04-14] MEDS: methylPREDNISolone SOD SUCC 125 MG/2 ML VL IV ONE (11:34)
[2024-04-14 11:42] LABS: Alanine Aminotransferase 16 U/L (7-40); Alkaline Phosphatase 71 U/L (46-116); Anion Gap 7 (5-15); Aspartate Aminotransferase 9 U/L (13-40); BUN/Creatinine Ratio 34.9 (10.0-20.0); Blood Urea Nitrogen 29 mg/dL (9-23); Calcium 9.2 mg/dL (8.7-10.4); Carbon Dioxide 29 mmol/L (20-31); Chloride 102 mmol/L (98-107); Glucose 150 mg/dL (74-106); Sodium 138 mmol/L (136-145)
[2024-04-14 11:43] LABS: Albumin 3.5 g/dL (3.2-4.8); Bilirubin, Total 0.2 mg/dL (0.2-1.0); Total Protein 5.5 g/dL (5.7-8.2)
[2024-04-14] MEDS: SODIUM CHLORIDE 0.9% 500 ML IV ONE (11:49)
--- NOTE | 2024-04-14 12:19 | DVH ---
CLINICAL INFORMATION: 78 years old, Female; .shortness of breath TECHNIQUE: Single AP portable chest radiograph was obtained. COMPARISON: XY CHEST PORTABLE on DOS: 03/12/24, XY CHEST PORTABLE on DOS: 03/01/24, XY CHEST PORTABLE o n DOS: 06/28/23 FINDINGS: Lungs: Emphysematous changes with hyperaeration of the lungs and flattening of the diaphragm. Patchy opacities in the right lung base, possible developing consolidation in the appropriate clinical setti ng. Mild atelectasis in the left lung base. Cardiac: Heart size is within normal limits. Pulmonary vasculature: Unremarkable. Mediastinum/tanner: Unremarkable. Bones: No acute osseous abnormality identified. Other: No other significant findings. IMPRESSION: 1. Patchy opacities in the right lung base, possible developing consolidation. 2. Emphysematous changes.
[2024-04-14 12:22] LABS: Urine Bacteria None Seen /hpf (None Seen)
[2024-04-14 12:30] LABS: COVID19 ANTIGEN SOFIA FIA NEGATIVE (NEGATIVE); Rapid Influenza A Negative (Negative); Rapid Influenza B Negative (Negative)
[2024-04-14 12:32] LABS: Urine Blood Negative /uL (Negative); Urine Clarity Clear (Clear); Urine Color Light-Yellow (Yellow); Urine Protein, UAD Negative (Negative); Urine Specific Gravity 1.027 (1.001-1.035); Urine Urobilinogen Normal (Negative); Urine WBC 1 /hpf (0 - 5); Urine pH 6.5 (5.0-9.0)
[2024-04-14] MEDS: cefTRIAXone 1GM/50ML D5W 50 ML IV ONE (12:34)
[2024-04-14 13:00] VITALS: PULSE 65; RESP 12; O2SAT 94
[2024-04-14] MEDS: ONDANSETRON HCL 4 MG/2 ML VIAL IV ONE ×2 (13:33→17:28)
[2024-04-14] MEDS: MORPHINE SULFATE INJ 2 MG/ml SYRG IV ONE (17:32)
[2024-04-14 19:20] VITALS: PULSE 96; RESP 17; O2SAT 98
[2024-04-14] MEDS ORDERED: NITROGLYCERIN 0.4 MG SL TAB SL PRN (20:00)
[2024-04-14] MEDS ORDERED: MORPHINE SULFATE INJ 2 MG/ml SYRG IV PRN (20:00)
[2024-04-14] MEDS ORDERED: DOCUSATE SOD 100 MG CAP PO PRN (20:00)
[2024-04-14] MEDS: SODIUM CHLORIDE 0.9% 1,000 ML IV SCH (20:30)
[2024-04-14] MEDS: HYDROcodone-ACET 5/325MG TAB PO PRN (21:42)
[2024-04-14] MEDS: methylPREDNISolone SOD SUCC 40 MG/ML VL IV SCH (22:14)
[2024-04-15] MEDS: ACETAMINOPHEN 325 MG TAB PO PRN (00:41)
[2024-04-15 04:48] LABS: Basophils # (auto) 0 10 ^3/uL (0-0.2); Basophils % (auto) 0.2 % (0.0-2.0); Eosinophils # (auto) 0 10 ^3/uL (0-0.8); Lymphocytes # (auto) 0.5 10 ^3/uL (0.4-5.4); Neutrophils % (auto) 93.8 % (37.0-80.0); Nucleated Red Blood Cells % 0.2 %
[2024-04-15 04:49] LABS: Hematocrit 23.2 % (36.0-46.0); Hemoglobin 7.4 g/dL (12.2-16.2); Lymphocytes % (auto) 4.7 % (10.0-50.0); Mean Corpuscular Hemoglobin 36.8 pg (28.0-32.0); Monocytes # (auto) 0.1 10 ^3/uL (0-1.3); Monocytes % (auto) 1.3 % (0.0-12.0); Neutrophils # (auto) 10.2 10 ^3/uL (1.6-8.6); Platelet Count (auto) 393 10^3/uL (140-450); Red Blood Cells 2.02 10^6/uL (4.0-5.20); White Blood Cell 10.9 10^3/uL (4.4-10.8)
[2024-04-15] MEDS: cefTRIAXone 1GM/50ML D5W 50 ML IV SCH (09:48)
[2024-04-15] MEDS: AZITHROMYCIN 500MG/ 250ML 250 ML IV SCH (09:56)
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
[2024-04-15] MEDS: SODIUM CHLORIDE 0.9% 1,000 ML IV ONE (12:04)
[2024-04-15] MEDS: ONDANSETRON HCL 4 MG/2 ML VIAL IV ONE (12:24)
[2024-04-15] MEDS: SUCRALFATE 1 GM TAB PO SCH (12:24)
[2024-04-15] MEDS: FERROUS SULFATE 325mg EC TAB PO SCH (12:25)
[2024-04-15] MEDS: LEVOTHYROXINE SODIUM 50 MCG TAB PO SCH (12:25)
[2024-04-15] MEDS ORDERED: ALBUTEROL SULF 2.5 MG/0.5ML(0.5%) NEB SOLN NEB PRN (12:30)
[2024-04-15 12:33] VITALS: BP 100/47; PULSE 72; RESP 20; TEMP 98.2; O2SAT 98
--- NOTE | 2024-04-15 14:39 | ECG ---
[facility] Test Date: 2024-04-14 Test Time: 11:12:24 Pat Name: MILES TOWNSEND Department: ER Room: [facility]6T Gender: F [facility] Aide: PANCHITO : 1945 Requested By: DONNIE CARMONA Order Number: [id number] Reading MD: Alberto Ruff Measurements Intervals [place] Rate: 70 P: 64 WI: 148 QRS: 62 QRSD: 106 T: 59 QT: 369 QTc: 399 Interpretive Statements Sinus rhythm Borderline repolarization abnormality Baseline wander in lead(s) II,III,aVF,V1,V4,V5 Electronically Signed On 04-18-2024 14:25:38 PDT by Alberto Ruff Please click the below link to view image of tracing.
[2024-04-15 15:20] VITALS: BP 110/48; PULSE 82; RESP 24; TEMP 97.6; O2SAT 95
[2024-04-15 15:54] VITALS: PULSE 82; RESP 24; O2SAT 95
[2024-04-15] MEDS ORDERED: FLUT1AER17 IN (17:14)
[2024-04-15] MEDS ORDERED: LIDO5PAD12 EX (17:18)
[2024-04-15] MEDS ORDERED: APIX2.5T PO (18:14)
[2024-04-15 18:59] VITALS: O2SAT 94
[2024-04-15 20:00] VITALS: PULSE 75; PULSE 79; RESP 17; O2SAT 95
[2024-04-15 21:00] VITALS: BP 132/36; PULSE 78; RESP 17; TEMP 97.5; O2SAT 95
[2024-04-15] MEDS: PANTOPRAZOLE 40 MG TAB PO SCH (22:28)
[2024-04-16] VITALS (11 sets, daily range): BP systolic 91–128; BP diastolic 5–76; PULSE 75–83; RESP 16–22; TEMP 97.4–98.2; O2SAT 94–100
[2024-04-16] MEDS ORDERED: ONDA-155 PO (05:05)
[2024-04-16] MEDS ORDERED: APIX2.5T PO (05:07)
[2024-04-16] MEDS ORDERED: AMIO200T33 PO (05:09)
[2024-04-16 05:39] LABS: Basophils # (auto) 0 10 ^3/uL (0-0.2); Basophils % (auto) 0.1 % (0.0-2.0); Eosinophils # (auto) 0 10 ^3/uL (0-0.8); Hematocrit 22.9 % (36.0-46.0); Hemoglobin 7.3 g/dL (12.2-16.2); Lymphocytes # (auto) 0.6 10 ^3/uL (0.4-5.4); Lymphocytes % (auto) 5.7 % (10.0-50.0); Mean Corpuscular Hemoglobin 36.9 pg (28.0-32.0); Mean Corpuscular Hgb Conc. 32.1 g/dL (32.0-36.0); Monocytes # (auto) 0.6 10 ^3/uL (0-1.3); Monocytes % (auto) 5.4 % (0.0-12.0); Neutrophils # (auto) 9.2 10 ^3/uL (1.6-8.6); Neutrophils % (auto) 88.8 % (37.0-80.0); Platelet Count (auto) 394 10^3/uL (140-450); Red Blood Cells 1.99 10^6/uL (4.0-5.20); White Blood Cell 10.4 10^3/uL (4.4-10.8)
[2024-04-16] MEDS: ONDANSETRON HCL 4 MG/2 ML VIAL IV PRN (05:42)
[2024-04-16] MEDS ORDERED: BUPR-346 PO (06:27)
[2024-04-16] MEDS ORDERED: HYDR-3682 PO (06:29)
[2024-04-16] MEDS ORDERED: POTA-215 PO (06:30)
--- NOTE | 2024-04-16 06:30 | PRN ---
Misceleneous Note Note Note April 15, 2024 GI consultation: Reason for consultation: Anemia Referring provider: Vik History of Present Illness The patient is a 78-year-old female with a past medical history significant for atrial fibrillation, hypothyroidism, GERD, anemia, history of blockage in her stomach or intestine, followed at [facility], history of endoscopy and colonoscopy within the last year, admitted with shortness of breath for 2 days found to be anemic. She denies any gross bleeding. Patient does not take any anticoagulation, denies taking significant aspirin or NSAID use. Patient takes iron for her anemia and takes medications for her stomach in gastrointestinal issues. Patient denies any GI surgeries. He denies dysphagia or odynophagia, denies melena hematochezia or hematemesis Past Medical history As per HPI Past surgical History: Hip surgery Back surgery Tonsillectomy Social Hx No tobacco, alcohol or recreational drug use Allergies: NKDA Family history: Brother with pancreatic cancer Home medications: Prednisolone Carafate Iron, levothyroxine Metoprolol Pantoprazole Review of systems: 12 point review of systems negative other than HPI Vital Signs Date Time Temp Pulse Resp B/P (MAP) Pulse Ox O2 Delivery O2 Flow Rate FiO2 04/16/24 05:00 97.6 78 18 98/57 (71) 100 97.6 04/15/24 20:00 Nasal Cannula* 2 28 General: Alert and oriented x4 HEENT: Normocephalic atraumatic extraocular movements were intact Heart: Regular rate and rhythm Lungs: Clear to auscultation anteriorly Abdomen: Soft nontender nondistended Extremity no clubbing cyanosis or edema Laboratory Tests Test 04/14/24 11:08 04/14/24 11:46 04/14/24 12:01 04/14/24 12:08 Range/Units White Blood Count 20.4 H 4.4-10.8 10^3/uL Red Blood Count 2.49 L 4.0-5.20 10^6/uL Hemoglobin 8.8 L 12.2-16.2 g/dL Hematocrit 28.2 L 36.0-46.0 % Mean Corpuscular Volume 113.0 H 80.0-100.0 fL Mean Corpuscular Hemoglobin 35.2 H 28.0-32.0 pg Mean Corpuscular Hemoglobin Concent 31.2 L 32.0-36.0 g/dL Red Cell Distribution Width 16.3 H 11.8-14.3 % Platelet Count 514 H 140-450 10^3/uL Mean Platelet Volume 6.7 L 6.9-10.8 fL Neutrophils (%) (Auto) 95.7 H 37.0-80.0 % Lymphocytes (%) (Auto) 2.9 L 10.0-50.0 % Monocytes (%) (Auto) 1.3 0.0-12.0 % Eosinophils (%) (Auto) 0.0 0.0-7.0 % Basophils (%) (Auto) 0.1 0.0-2.0 % Neutrophils # (Auto) 19.5 H 1.6-8.6 10 ^3/uL Lymphocytes # (Auto) 0.6 0.4-5.4 10 ^3/uL Monocytes # (Auto) 0.3 0-1.3 10 ^3/uL Eosinophils # (Auto) 0 0-0.8 10 ^3/uL Basophils # (Auto) 0 0-0.2 10 ^3/uL Nucleated Red Blood Cells 0.4 % Sodium Level 138 136-145 mmol/L Potassium Level 4.0 3.5-5.1 mmol/L Chloride Level 102 98-107 mmol/L Carbon Dioxide Level 29 20-31 mmol/L Anion Gap 7 5-15 Blood Urea Nitrogen 29 H 9-23 mg/dL Creatinine 0.83 0.550-1.02 mg/dL Glomerular Filtration Rate Calc 73 >90 mL/min BUN/Creatinine Ratio 34.9 H 10.0-20.0 Serum Glucose 150 H 74-106 mg/dL Lactic Acid Level 1.3 0.4-2.0 mmol/L Calcium Level 9.2 8.7-10.4 mg/dL Total Bilirubin 0.2 0.2-1.0 mg/dL Aspartate Amino Transferase (AST) 9 L 13-40 U/L Alanine Aminotransferase (ALT) 16 7-40 U/L Alkaline Phosphatase 71 46-116 U/L Troponin I High Sensitivity 17 16 </=34 ng/L B-Type Natriuretic Peptide 133.31 0-100 pg/mL Total Protein 5.5 L 5.7-8.2 g/dL Albumin 3.5 3.2-4.8 g/dL Influenza Type A Antigen Negative Negative Influenza Type B Antigen Negative Negative SARS-CoV-2 Antigen (Rapid) Negative NEGATIVE Urine Color Light-yellow Yellow Urine Clarity Clear Clear Urine pH 6.5 5.0-9.0 Urine Specific [place] 1.027 1.001-1.035 Urine Protein Negative Negative Urine Ketones Negative Negative Urine Blood Negative Negative /uL Urine Nitrite Negative Negative Urine Bilirubin Negative Negative Urine Urobilinogen Normal Negative mg/dL Urine Leukocyte Esterase Negative Negative /uL Urine RBC <1 0 - 4 /hpf Urine WBC 1 0 - 5 /hpf Urine Squamous Epithelial Cells Few <5 /hpf Urine Bacteria None seen None Seen /hpf Urine Glucose Normal Normal mg/dL Test 04/14/24 14:07 04/15/24 04:37 04/15/24 22:49 04/16/24 05:05 Range/Units Troponin I High Sensitivity 17 </=34 ng/L White Blood Count 10.9 #H 10.4 4.4-10.8 10^3/uL Red Blood Count 2.02 L 1.99 L 4.0-5.20 10^6/uL Hemoglobin 7.4 #L 7.3 L 12.2-16.2 g/dL Hematocrit 23.2 #L 22.9 L 36.0-46.0 % Mean Corpuscular Volume 115.0 H 115.0 H 80.0-100.0 fL Mean Corpuscular Hemoglobin 36.8 H 36.9 H 28.0-32.0 pg Mean Corpuscular Hemoglobin Concent 32.0 32.1 32.0-36.0 g/dL Red Cell Distribution Width 17.0 H 18.0 H 11.8-14.3 % Platelet Count 393 394 140-450 10^3/uL Mean Platelet Volume 6.5 L 6.5 L 6.9-10.8 fL Neutrophils (%) (Auto) 93.8 H 88.8 H 37.0-80.0 % Lymphocytes (%) (Auto) 4.7 L 5.7 L 10.0-50.0 % Monocytes (%) (Auto) 1.3 5.4 0.0-12.0 % Eosinophils (%) (Auto) 0.0 0.0 0.0-7.0 % Basophils (%) (Auto) 0.2 0.1 0.0-2.0 % Neutrophils # (Auto) 10.2 H 9.2 H 1.6-8.6 10 ^3/uL Lymphocytes # (Auto) 0.5 0.6 0.4-5.4 10 ^3/uL Monocytes # (Auto) 0.1 0.6 0-1.3 10 ^3/uL Eosinophils # (Auto) 0 0 0-0.8 10 ^3/uL Basophils # (Auto) 0 0 0-0.2 10 ^3/uL Nucleated Red Blood Cells 0.2 0.0 % Hepatitis B Surface Antigen Pending Hepatitis C Antibody Pending Stool Occult Blood Positive Negative Stool Occult Blood Sample #3 Negative Impression: # occult blood positive stool # anemia, multifactorial, with macrocytic anemia as well as iron-deficiency # history of intestinal blockage, question ulceration versus inflammatory bowel disease versus other Recommendations: 1. Retrieve records from [facility] 2, Follow H&H and transfuse 3. We will check vitamin B12 levels 4. Consider no GI sources of anemia 5. Continue with ferrous sulfate and GI medications for now 6. Consider EGD and/or colonoscopy ASUNCION ARMIJO MD Apr 16, 2024 06:30
[2024-04-16] MEDS ORDERED: HYDR25TA4 PO (06:31)
[2024-04-16] MEDS ORDERED: MID10T GT (06:36)
[2024-04-16] MEDS ORDERED: BUPR5DIS TD (06:36)
[2024-04-16] MEDS ORDERED: FLUT1AER3 IN (06:36)
[2024-04-16] MEDS ORDERED: MELA3TAB27 PO (06:39)
[2024-04-16] MEDS ORDERED: ALBU2TAB11 PO (06:39)
[2024-04-16] MEDS ORDERED: [UNRECOGNIZED DRUG - CODE] PO (06:39)
[2024-04-16] MEDS: predniSONE 20 MG TAB PO SCH (10:27)
[2024-04-16 11:25] LABS: % Iron Saturation 12.7 % (15-50)
[2024-04-16 12:18] LABS: Folate (Folic Acid) 16.51 ng/mL (>5.38)
[2024-04-16 12:19] LABS: Ferritin 17.5 ng/mL (10-291)
[2024-04-16] MEDS: [UNRECOGNIZED DRUG - OTHER] IN SCH (16:44)
[2024-04-17] VITALS (11 sets, daily range): BP systolic 96–124; BP diastolic 56–80; PULSE 62–93; RESP 14–19; TEMP 97.5–98.3; O2SAT 90–100
[2024-04-17] MEDS: LEVOTHYROXINE SODIUM 25 MCG TAB PO SCH (06:31)
[2024-04-17 07:19] LABS: INR 1.06 (0.9-1.15); Partial Thromboplastin Time 23.6 SEC (24.5-34.5); Prothrombin Time 11.2 sec (9.3-11.8)
[2024-04-17 07:24] LABS: Basophils # (auto) 0 10 ^3/uL (0-0.2); Basophils % (auto) 0.1 % (0.0-2.0); Eosinophils # (auto) 0 10 ^3/uL (0-0.8); Eosinophils % (auto) 0.1 % (0.0-7.0); Lymphocytes # (auto) 0.7 10 ^3/uL (0.4-5.4); Monocytes # (auto) 0.5 10 ^3/uL (0-1.3); Red Cell Distribution Width 22.4 % (11.8-14.3)
[2024-04-17 07:27] LABS: Hematocrit 29.9 % (36.0-46.0); Hemoglobin 9.5 g/dL (12.2-16.2); Mean Corpuscular Hemoglobin 34.8 pg (28.0-32.0); Mean Corpuscular Hgb Conc. 31.9 g/dL (32.0-36.0); Mean Corpuscular Volume 109.3 fL (80.0-100.0); Monocytes % (auto) 5.9 % (0.0-12.0); Neutrophils # (auto) 7.7 10 ^3/uL (1.6-8.6); Neutrophils % (auto) 85.9 % (37.0-80.0); Nucleated Red Blood Cells % 0.1 %; Platelet Count (auto) 404 10^3/uL (140-450); Red Blood Cells 2.74 10^6/uL (4.0-5.20); White Blood Cell 8.9 10^3/uL (4.4-10.8)
--- NOTE | 2024-04-17 08:27 | DVH ---
EXAM: XY CHEST PORTABLE Indication: pain Technique: Single frontal view of the chest was obtained Comparison: XY CHEST PORTABLE on DOS: 04/14/24, XY CHEST PORTABLE on DOS: 03/12/24, XY CHEST PORTABLE on DOS: 03/01/24, XY CHEST PORTABLE on DOS: 06/28/23, XY CHEST PORTABLE on DOS: 12/09/22 FINDINGS: Lines and Tubes: None Lungs: Bibasilar opacities. Pleura: No effusion. No pneumothorax. Cardiomediastinal contours: Unremarkable. Atherosclerotic vascular calcifications of the thoracic ao rta are noted. Bones: No acute osseous abnormality. IMPRESSION: Bibasilar opacities.
[2024-04-17 12:12] LABS: Base Excess -0.5 mmol/L (-2.0-3.0)
[2024-04-17] MEDS ORDERED: LIDOCAINE VISCOUS 2% 15ML UD ONE (14:56)
[2024-04-17] MEDS ORDERED: PROPOFOL 100 ML IV ONE (14:56)
--- NOTE | 2024-04-17 15:16 | DVHOP2 ---
Operative Report DATE OF OPERATION: 04/17/24 PROCEDURE: Upper Endoscopy with biopsy. PREOPERATIVE INDICATION: The patient is a 78 -year-old female undergoing endoscopy for anemia and history of peptic ulcer disease POSTOPERATIVE DIAGNOSES: 1. Patient had a large area of healing ulceration in the pre-pyloric area and an trum possibly at the site of previous endoscopic dilation or endo cut area. There was an overlying eschar but no visible vessel or active bleeding 2. Bfrb-cc-obkhzbor gastritis and multiple biopsies were obtained of the stomach and around the gastric ulcer area 3. Evidence of a postbulbar duodenal stricture without active bleeding or ulceration beyond which the endoscope could not be advanced with a pulse stricture duodenal bulb appeared to be normal and duodenal biopsies were obtained 4. 1 cm sliding-type hiatal hernia with grade a erosive esophagitis from with GE junction biopsies were obtained 5. There was omet-al-efhrdejs gastroparesis with retained bile and some gastric food contents in the stomach likely due to postbulbar duodenal stricture which were aspirated PROCEDURE PERFORMED BY: Temi Prado GI NURSE: Flower SCOPE: Olympus videoendoscope. ASA CLASS: 3. PREOPERATIVE MEDICATIONS: Dr. Parminder Eng PROCEDURE IN DETAIL: After obtaining an informed consent, the patient was placed on left lateral decubitus position. The patient was then sedated with the above medications. A bite block was placed between her teeth. The endoscope was then passed through the oropharynx, into the esophagus, and through the stomach and pylorus up to the bulb were area at which point there was a postbulbar duodenal stricture benign inflammatory The duodenum beyond this postbulbar stricture appeared to be normal and some duodenal biopsies were obtained. The duodenal bulb was dilated. The endoscope was then withdrawn. Patient had a large area of healing ulceration in the pre-pyloric area and antrum. This appeared to be possibly related to a previous gastric procedure possibly an endo cut due to pyloric channel stricture. There was overlying eschar but no bleeding vessel and no fresh or old blood in the stomach Patient had retained gastric food contents and ordered amount of bile which was aspirated. Gastric biopsies were obtained. Patient is likely having partial gastric outlet obstruction due to the postbulbar stricture The endoscope was then withdrawn into the distal esophagus where the patient had a 1 cm sliding-type hiatal hernia with grade a erosive esophagitis. GE junction biopsies were obtained. The remaining distal and proximal esophagus and oropharynx were unremarkable. The patient tolerated the procedure well without difficulty. COMPLICATIONS : None SPECIMENS: Duodenal biopsy Gastric biopsies GE junction biopsies DISPOSITION: Transfer back to the floor Stable PLAN: 1. Await for biopsy result 2. Will place pt on Protonix 40 mg bid 3. Carafate suspension 1 g p.o. 4 times a day 4. I would recommend that this patient stay on a full liquid or a pureed diet only 5. DC aspirin NSAIDs smoking alcohol 6. Outpatient follow up with GI Services for further management and decision regarding referral back to [facility] for dilation of the postbulbar stricture 7. If the patient will need periodic endoscopies for surveillance and if she has a nonhealing antral gastric ulcer then she may need surgical intervention in the future TEMI PRADO MD Apr 17, 2024 15:16
[2024-04-17] MEDS ORDERED: SUCR1TAB31 PO (17:08)
[2024-04-17] MEDS ORDERED: DOXY1CAP58 PO (17:08)
[2024-04-17] MEDS ORDERED: PANT40T PO (17:08)
[2024-04-17] MEDS ORDERED: DOCU-265 PO (17:09)
[2024-04-17] MEDS ORDERED: FER325T PO (17:09)
--- NOTE | 2024-04-17 17:35 | DVHDS2 ---
Discharge Summary Date of Admission Apr 14, 2024 at 19:57 Date of Discharge: Apr 17, 2024 Brief Hx & Hospital Course: This is a 78-year-old female with a past medical history who presented with complaint of shortness of bed diagnosed with acute on chronic COPD exacerbation admitted for further evaluation and management. Hospital course complicated by development of acute symptomatic anemia with positive stool for occult blood. Anemia likely multifactorial in the setting of iron deficiency anemia. No evidence of gross blood loss and patient remained hemodynamically and clinically stable. She responded well to transfusion of 1 unit of packed RBC. GI consultation appreciated and patient underwent upper endoscopy with findings of "1. Patient had a large area of healing ulceration in the pre-pyloric area and antrum possibly at the site of previous endoscopic dilation or endo cut area. There was an overlying eschar but no visible vessel or active bleeding 2. Frhn-ni-sqgjnlmu gastritis and multiple biopsies were obtained of the stomach and around the gastric ulcer area 3. Evidence of a postbulbar duodenal stricture without active bleeding or ulceration beyond which the endoscope could not be advanced with a pulse stricture duodenal bulb appeared to be normal and duodenal biopsies were obtained 4. 1 cm sliding-type hiatal hernia with grade a erosive esophagitis from with GE junction biopsies were obtained 5. There was yopm-fy-vavsvukr gastroparesis with retained bile and some gastric food contents in the stomach likely due to postbulbar duodenal stricture which were aspirated' with recommendations for "1. Await for biopsy result 2. Will place pt on Protonix 40 mg bid 3. Carafate suspension 1 g p.o. 4 times a day 4. I would recommend that this patient stay on a full liquid or a pureed diet only 5. DC aspirin NSAIDs smoking alcohol 6. Outpatient follow up with GI Services for further management and decision regarding referral back to [facility] for dilation of the postbulbar stricture 7. If the patient will need periodic endoscopies for surveillance and if she has a nonhealing antral gastric ulcer then she may need surgical intervention in the future." . She tolerating liquid diet well. She is requesting to go home. She is ambulating well without assistance. Old Dr. Prado recommendations discussed with patient's and reinforced with her and her sought, per patient consent. Both verbalized agreement and understanding. They also verbalized agreement and understanding that noncompliance can lead to discomfort, disability, deterioration and/or . Per nurse, home supp lemental oxygen has been arranged. No major events reported overnight. Patient denies complaints of fevers, chills, change in appetite, chest pain, palpitations, cough, shortness of breath, dyspnea on exertion, abdominal pain, nausea, vomiting, diarrhea, constipation, dysuria, lightheadedness, weakness, paresthesia or other complaints. Last bowel movement was yesterday, brown, soft, no melena, no hematochezia. Physical Exam: General: This is a 78-year-old female appearing stated age in no acute distress. Vital Signs Date Time Temp Pulse Resp B/P (MAP) Pulse Ox O2 Delivery O2 Flow Rate FiO2 04/17/24 15:35 71 18 123/58 (79) 97 04/17/24 15:12 98.4 04/17/24 15:12 Nasal Cannula 2.0 04/17/24 15:12 100 HEENT: Pupils equal and reactive to light and accommodation. Extraocular muscles intact. Mucous membranes moist. Conjunctivae [place]. Anicteric Sclera. Lungs: Bilateral air entry; no wheezes, rhonchi, rales. Heart: Regular Rate and Rhythm. Normal S1/S2. Abdomen: Bowel Sounds Normoactive, soft, non-tender, non-distended, no cva tenderness. Extremities: No clubbing, cyanosis, edema. No calf tenderness. Pedal pulses 2+. Neurologic: Patient alert, awake and oriented x 3. Cranial nerves II through XII intact. No focal deficits on gross sensorimotor exam. Discharge disposition Patient stable for discharge per discharge order if discharge order criteria are met. Patient verbalized agreement and understanding that should patient have any new recurrent or worsening symptoms, patient should seek medical attention immediately. Patient verbalized agreement and understanding of current status and plan as well as plan of care for followup. Patient verbalized agreement and understanding that if patient does not follow my discharge medication reconciliation and discharge instructions, patient is at risk for, but not limited to, discomfort, disability, deterioration and/or . This medical document was created using an electronic medical record system with [employer] system. Although this document has been carefully reviewed, there may still be some phonetic and typographical errors. These areas are purely typographical due to imperfections of the software programs, and do not reflect any compromise in the patient's medical care Condition at Discharge: Stable Final Diagnosis/Problems List Acute on chronic COPD exacerbation. Chronic respiratory failure on home oxygen therapy. Iron Deficiency Anemia. Peptic ulcer disease. Discharge Disposition: Home with Health Services Discharge Instruct/Medications Diet: See Comment Diet comment: Full Liquid Diet UNTIL follow up with Gastroenterology, Dr. Prado Activity: No Restrictions, As Tolerated Follow Up/Referral: Discharge home. Follow up with PCP in 3-5 days. Follow up with the [facility] for upper endoscopy and dilatation. Follow up with GI Service, Dr. Prado for endoscopic surveillance. Follow up any biopsies obtained during endoscopy during hospital stay with PCP and Dr. Prado. Repeat iron panel and complete blood count in four weeks with patient's primary care physician. Medications: Please refer to discharge medication reconciliation. Patient counseled at length with regards to the purpose, benefits and risks of all new medications and/or medication adjustments. Patient verbalized agreement and understanding. Medications given/sent electronically to pharmacy. Discharge Statement: "Patient was advised to return to the ER or call 911 if any headaches, dizziness, shortness of breath, chest pain, abdominal pain, bleeding, fevers, or worsening of medical condition. Patient was counseled about treatment plan, medications, possible side effects, patientverbalized understanding. All questions were answered to the best of my ability. This discharge took greater then 30 minutes in planning, reviewing documentation, counseling the patient, and discussing with other team members." ASSESSMENT ASSESSMENT Assessment RIDDHI RANGEL MD Apr 17, 2024 17:35
[2024-04-18 09:49] LABS: Hepatitis B Surface Antigen Negative (Negative)
[2024-04-18 10:12] LABS: Hepatitis C Antibody Negative (Negative)
--- NOTE | 2024-04-21 09:27 | ECG ---
[facility] Test Date: 2024-04-17 Test Time: 05:42:04 Pat Name: MILES TOWNSEND Department: Respiratoy Room: [facility]6T A Gender: F Manager Ct: Esther : 1945 Requested By: SIS RANGEL Order Number: [id number] Reading MD: Corinne Dominique Measurements Intervals [place] Rate: 73 P: 63 SC: 164 QRS: 15 QRSD: 91 T: 34 QT: 393 QTc: 433 Interpretive Statements Sinus rhythm Atrial premature complex Nonspecific T abnormalities, anterior leads Electronically Signed On 04-22-2024 17:23:30 PST by Corinne Dominique Please click the below link to view image of tracing.
--- NOTE | 2024-04-21 09:27 | ECG ---
[facility] Test Date: 2024-04-17 Test Time: 05:40:04 Pat Name: MILES TOWNSEND Department: Respiratoy Room: [facility]6T A Gender: F End User Consultant: Esther : 1945 Requested By: SIS RANGEL Order Number: [id number] Reading MD: Corinne Dominique Measurements Intervals [place] Rate: 73 P: 61 DC: 169 QRS: 34 QRSD: 94 T: 57 QT: 439 QTc: 484 Interpretive Statements Sinus rhythm Nonspecific T abnrm, anterolateral leads Baseline wander in lead(s) V1 Electronically Signed On 04-22-2024 17:23:28 PST by Corinne Dominique Please click the below link to view image of tracing.
== END 2024-04-17 20:40 | disposition home health service (06) | DRG 377 ==
LOC: ER 10:47 → TELE 19:57 → TELE-WESTW 04-15 16:07
PROVIDERS: ADMIT Internal Medicine; ATTEND Internal Medicine
PROC: 30233N1 Transfusion of Nonautologous Red Blood Cells into Peripheral Vein, Percutaneous Approach (ICD-10-PCS; 2024-04-16)
PROC: 0DB68ZX Excision of Stomach, Via Natural or Artificial Opening Endoscopic, Diagnostic (ICD-10-PCS; 2024-04-17)
PROC: 0DB48ZX Excision of Esophagogastric Junction, Via Natural or Artificial Opening Endoscopic, Diagnostic (ICD-10-PCS; 2024-04-17)
PROC: 0DB98ZX Excision of Duodenum, Via Natural or Artificial Opening Endoscopic, Diagnostic (ICD-10-PCS; principal; 2024-04-17 14:49)
DX: K25.4 Chronic or unspecified gastric ulcer with hemorrhage (principal); J96.21 Acute and chronic respiratory failure with hypoxia; K21.01 Gastro-esophageal reflux disease with esophagitis, with bleeding; J44.1 Chronic obstructive pulmonary disease with (acute) exacerbation; K31.5 Obstruction of duodenum; J44.0 Chronic obstructive pulmonary disease with (acute) lower respiratory infection; K22.11 Ulcer of esophagus with bleeding; D50.9 Iron deficiency anemia, unspecified; I10 Essential (primary) hypertension; R73.9 Hyperglycemia, unspecified; Z20.822 Contact with and (suspected) exposure to COVID-19; E03.9 Hypothyroidism, unspecified; K44.9 Diaphragmatic hernia without obstruction or gangrene; K31.84 Gastroparesis; Z90.49 Acquired absence of other specified parts of digestive tract; Z79.2 Long term (current) use of antibiotics; Z79.899 Other long term (current) drug therapy; Z99.81 Dependence on supplemental oxygen; Z79.52 Long term (current) use of systemic steroids; Z80.0 Family history of malignant neoplasm of digestive organs; Z87.11 Personal history of peptic ulcer disease
CPT/HCPCS: 36415; 36600; 71045; 80053; 81001; 82270; 82607; 82728; 82746; 82805; 83540; 83550; 83605; 83880; 84484; 85025; 85610; 85730; 86803; 86850; 86900; 86901; 86920; 87040; 87340; 87426; 87804; 93005; 97110; 97116; 97163; 99291; G0378; J2405; J2704

== ENCOUNTER 2024-05-10 19:05 | Inpatient (IN) | payer BC, MEDICAID ==
[~2024-05-10] VITALS: Ht 167.6 cm; Wt 58.4 kg
[2024-05-10] MEDS: SODIUM CHLORIDE 0.9% 1,000 ML IV SCH (01:00)
[~2024-05-10 19:05] MED LIST changes: +ALBU2TAB11 PO; +AMIO200T33 PO; +BUPR-346 PO; +BUPR5DIS TD; +DOCU-265 PO; -DOCU-94 PO; -DOXY100C79 PO; +DOXY1CAP58 PO; +FLUT1AER3 IN; +HYDR-3682 PO; +LIDO5PAD12 EX; +ONDA-155 PO; -POLY335015 PO
--- NOTE | 2024-05-10 19:32 | ED.PDOC ---
Foreign Body HPI Comments 78 year old female came to ER due to possible foreign body aspiration. Patient was discharged here last Apr 17 and was diagnosed to have 1. Acute on chronic COPD exacerbation, 2. Chronic respiratory failure on home oxygen therapy., 3. Iron Deficiency Anemia., 4. Peptic ulcer disease. She underwent endoscopy with biopsy last Apr 17 also. Patient was on liquid diet when about an hour ago she ate a salmon sandwich and started throwing up and retching afterwards. Was advised to go to the ER for possible aspiration. Chief Complaint: Foreign Body Time Seen by MD: 19:45 Primary Care Provider: RADHAMES History of Present Illness: Nurses Notes Allergies: Coded Allergies: NO KNOWN ALLERGIES (Unverified , 09/24/22) Home Meds Active Scripts Docusate Sodium (Docusate Sodium) 100 Mg Cap, 100 MG PO BID PRN, #28 CAP Prov:RIDDHI RANGEL MD 04/17/24 Ferrous Sulfate (Ferrous Sulfate) 325 Mg Tab, 325 MG PO BIDAC, #60 TAB Prov:RIDDHI RANGEL MD 04/17/24 Doxycycline (Monohydrate) (Doxycycline) 100 Mg Cap, 100 MG PO BID, #14 CAP Prov:RIDDHI RANGEL MD 04/17/24 Sucralfate (CARAFATE) 1 Gm Tab, 1 GM PO Q6HR, #120 TAB Prov:RIDDHI RANGEL MD 04/17/24 Pantoprazole Sodium Sesquihydr (Pantoprazole Sodium) 40 Mg Tab, 40 MG PO BID, #60 TAB Prov:RIDDHI RANGEL MD 04/17/24 Prednisone (Prednisone) 20 Mg Tab, 20 MG PO UD, #38 MG Take 60mg by mouth dailyx3 days then 50mg dailyx3 days then 40mg dailyx3 days then 30mg dailyx3 days then 20mg dailyx7 days then 10mg daily x 7 days Prov:RIDDHI RANGEL MD 03/13/24 Ferrous Sulfate (Ferrous Sulfate) 325 Mg Tab, 325 MG PO TIDWM, #90 TAB Prov:RIDDHI RANGEL MD 06/29/23 Levothyroxine Sodium (SYNTHROID TABLET) 50 Mcg Tb, 25 MCG PO DAILY, #30 MG Prov:SIS RANGEL MD 12/10/22 Metoprolol Tartrate (Lopressor) 25 Mg Tb, 12.5 MG PO BID, #15 TAB Prov:RIDDHI RANGEL MD 09/27/22 Reported Medications Albuterol Sulfate (Albuterol Sulfate) 2 Mg Tab, 2 MG PO Q6HP PRN for SHORTNESS OF BREATH, MG 04/16/24 Lulbsgdsnce-Ruaiuibugvyc-Eovqx (Trelegy Ellipta 100-62.5-25 Mcg/INH) 1 Aer Aer, 1 AER IN DAILY, AER 04/16/24 Buprenorphine (BUTRANS) 5 Mcg/Hr Dis, 15 MCG TD BID, DIS 04/16/24 Hydroxyzine Hcl (Hydroxyzine Hcl) 25 Mg Tab, 25 MG PO BID for 30 Days, MG 04/16/24 Bupropion Hcl (Bupropion Hcl) 100 Mg Tab, 150 MG PO DAILY for 30 Days, MG 04/16/24 Amiodarone Hcl (Amiodarone Hcl) 200 Mg Tab, 200 MG PO DAILY for 30 Days 04/16/24 Ondansetron HCl (Ondansetron) 4 Mg Tab, 4 MG PO TID, TAB 04/16/24 Lidocaine (Lidocaine Patch 5%) 5 % Pad, 5 % EX [id number], PAD 04/15/24 Information Source: Patient Mode of Arrival: Wheelchair Timing: Minutes Duration: Since onset Severity: Moderate Ability to handle secretions: Difficult Prehospital treatment: None Location: Throat, Esophagus Context: Ingestion Foreign Body: Food Associated signs and symptoms: Pain, SOB Past Medical History PAST MEDICAL HISTORY: AFIB, Anemia, COPD, GERD, HTN, Thyroid Surgical History: Cholecystectomy, Hernia Repair, Tonsillectomy [employer] History: Denies all [employer] Hx Family History Family History: Reviewed,noncontributory to illness, Family hx of heart sigrid Social History Smoker: Non-Smoker, Quit Greater Than 1 Year Alcohol: Denies ETOH Use Drugs: Denies Drug Use Lives In: Home Constitutional: denies: chills, diaphoresis, fatigue, fever, malaise, sweats, weakness, others EENTM: denies: blurred vision, double vision, ear bleeding, ear discharge, ear drainage, ear pain, ear ringing, eye pain, eye redness, hearing loss, mouth pain, mouth swelling, nasal discharge, nose bleeding, nose congestion, nose pain, photophobia, tearing, throat pain, throat swelling, voice changes, others Respiratory: reports: cough, shortness of breath, SOB with excertion; denies: hemoptysis, orthopnea, SOB at rest, stridor, wheezing, others Cardiovascular: denies: chest pain, dizzy spells, diaphoresis, Dyspnea on exertion, edema, irregular heart beat, left arm pain, lightheadedness, palpitations, PND, syncope, others Gastrointestinal: reports: nausea, vomiting; denies: abdomen distended, abdominal pain, blood streaked bowels, constipated, diarrhea, dysphagia, difficulty swallowing, hematemesis, melena, poor appetite, poor fluid intake, rectal bleeding, rectal pain, others Genitourinary: denies: abnormal vagina bleeding, burning, dyspareunia, dysuria, flank pain, frequency, hematuria, incontinence, pain, , vagina discharge, urgency, others Neurological: denies: dizziness, fainting, headache, left sided numbness, left sided weakness, numbness, paresthesia, pre-existing deficit, right sided numbness, right sided weakness, seizure, speech problems, tingling, tremors, weakness, others Musculoskeletal: denies: back pain, gout, joint pain, joint swelling, muscle pain, muscle stiffness, neck pain, others Integumetry: denies: bruises, change in color, change in hair/nails, dryness, laceration, lesions, lumps, rash, wounds, others Allergic/Immunocompromised: denies: Difficulty Healing, Frequent Infections, Hives, Itching, others Hematologic/Lymphatic: denies: anemia, blood clots, easy bleeding, easy bruising, swollen glands, others Endocrine: denies: excessive hunger, excessive sweating, excessive thirst, excessive urination, flushing, intolerance to cold, intolerance to heat, unexplained weight gain, unexplained weight loss, others Psychiatric: denies: anxiety, bipolar disorder, depression, hopeless, panic disorder, schizophrenia, sleepless, suicidal, others Physical Exam General Appearance: No Apparent Distress, Normal HEENT: Normal ENT Inspection, Pharynx Normal, TMs Normal Neck: Full Range of Motion, Non-Tender, Normal, Normal Inspection Respiratory: Chest Non-Tender, Lungs Clear, No Accessory Muscle Use, No Respiratory Distress, Normal Breath Sounds Cardiovascular: No Edema, No JVD, No Murmur, No Gallop, Normal Peripheral Pulses, Regular Rate/Rhythm Breast Exam: Deferred Gastrointestinal: No Organomegaly, Non Tender, No Pulsatile Mass, Normal Bowel Sounds, Soft Genitalia: Deferred Pelvic: Deferred Rectal: Deferred Extremities: No calf tenderness, Normal capillary refill, Normal inspection, Normal range of motion, Non-tender, No pedal edema Musculoskeletal : Apperance: Normal Neurologic: Alert, comptroller II-XII nml as Tested, No Motor Deficits, Normal Affect, Normal Mood, No Sensory Deficits Cerebellar Function: Normal Reflexes: Normal Skin: Dry, Normal Color, Warm Lymphatic: No Adenopathy Was a procedure done? Was a procedure done?: No FB Differential Dx Differential Diagnosis: Airway Obstruction, Esophageal Obstruction, Foreign Body X-Ray, Labs, Meds, VS Vital Signs Date Time Temp Pulse Resp B/P (MAP) Pulse Ox O2 Delivery O2 Flow Rate FiO2 05/10/24 19:28 97.7 67 18 95/61 (72) 91 Lab Test 05/10/24 19:49 05/10/24 19:44 Range/Units White Blood Count 12.0 H 4.4-10.8 10^3/uL Red Blood Count 3.91 L 4.0-5.20 10^6/uL Hemoglobin 13.1 12.2-16.2 g/dL Hematocrit 40.8 36.0-46.0 % Mean Corpuscular Volume 104.4 H 80.0-100.0 fL Mean Corpuscular Hemoglobin 33.6 H 28.0-32.0 pg Mean Corpuscular Hemoglobin Concent 32.2 32.0-36.0 g/dL Red Cell Distribution Width 15.7 H 11.8-14.3 % Platelet Count 457 H 140-450 10^3/uL Mean Platelet Volume 6.6 L 6.9-10.8 fL Neutrophils (%) (Auto) 82.2 H 37.0-80.0 % Lymphocytes (%) (Auto) 11.3 10.0-50.0 % Monocytes (%) (Auto) 5.6 0.0-12.0 % Eosinophils (%) (Auto) 0.4 0.0-7.0 % Basophils (%) (Auto) 0.5 0.0-2.0 % Neutrophils # (Auto) 9.9 H 1.6-8.6 10 ^3/uL Lymphocytes # (Auto) 1.4 0.4-5.4 10 ^3/uL Monocytes # (Auto) 0.7 0-1.3 10 ^3/uL Eosinophils # (Auto) 0.1 0-0.8 10 ^3/uL Basophils # (Auto) 0.1 0-0.2 10 ^3/uL Nucleated Red Blood Cells 0.0 % Prothrombin Time 10.7 9.3-11.8 sec Prothrombin Time INR 1.01 0.9-1.15 Activated Partial Thromboplast Time 25.4 24.5-34.5 SEC Sodium Level 138 136-145 mmol/L Potassium Level 3.5 3.5-5.1 mmol/L Chloride Level 99 98-107 mmol/L Carbon Dioxide Level 31 20-31 mmol/L Anion Gap 8 5-15 Blood Urea Nitrogen 11 9-23 mg/dL Creatinine 0.74 0.550-1.02 mg/dL Glomerular Filtration Rate Calc 84 >90 mL/min BUN/Creatinine Ratio 14.9 10.0-20.0 Serum Glucose 85 74-106 mg/dL Calcium Level 10.0 8.7-10.4 mg/dL Total Bilirubin 0.2 0.2-1.0 mg/dL Aspartate Amino Transferase (AST) 31 13-40 U/L Alanine Aminotransferase (ALT) 30 7-40 U/L Alkaline Phosphatase 101 46-116 U/L Troponin I High Sensitivity 41 *H </=34 ng/L Total Protein 6.6 5.7-8.2 g/dL Albumin 4.4 3.2-4.8 g/dL Lactic Acid Level 1.1 0.4-2.0 mmol/L PROCEDURE(s): CXR2 - CHEST TWO VIEWS ROUTINE Findings/ IMPRESSION: Patchy interstitial opacities which raise concern for possible aspiration pneumonia versus chronic interstitial lung disease in the right lower lung zone. Compression severe compression deformities in the upper lumbar spine vertebral bodies. Time of 1ST Reevaluation: 19:44 Reevaluation 1ST: Unchanged Time of 2ND Reevaluation: 21:00 Reevaluation 2ND: Unchanged Patient Education/Counseling: Diagnosis, Treatment Family Education/Counseling: Diagnosis, Treatment Departure 1 Departure Time of Disposition: 22:00 Impression: Primary Impression: Acute respiratory failure Additional Impression: Aspiration pneumonia Disposition: ADMITTED INPATIENT Condition: Guarded Critical Care Note Critical Care Time?: Yes (35 min-critical care time only) Stability Stability form required: No Heart Score Heart Score: Heart Score Response (Comments) Value History N/A 0 EKG N/A 0 Age N/A 0 Risk Factors N/A 0 Troponin N/A 0 Total 0 I personally scribed for RAUL ORELLANA MD (MEHDI) on 05/10/24 at 19:32. Electronically submitted by [employer] ([facility]). I personally scribed for RAUL ORELLANA MD (MEHDI) on 05/10/24 at 19:46. Electronically submitted by [employer] ([facility]). I personally scribed for RAUL ORELLANA MD (MEHDI) on 05/10/24 at 20:37. Electronically submitted by [employer] ([facility]). I personally scribed for RAUL ORELLANA MD (MEHDI) on 05/10/24 at 22:54. Electronically submitted by [employer] ([facility]). RAUL ORELLANA MD May 10, 2024 19:32
[2024-05-10 20:04] LABS: Basophils # (auto) 0.1 10 ^3/uL (0-0.2); Lymphocytes # (auto) 1.4 10 ^3/uL (0.4-5.4); Lymphocytes % (auto) 11.3 % (10.0-50.0); Monocytes # (auto) 0.7 10 ^3/uL (0-1.3)
[2024-05-10 20:06] LABS: Basophils % (auto) 0.5 % (0.0-2.0); Eosinophils # (auto) 0.1 10 ^3/uL (0-0.8); Eosinophils % (auto) 0.4 % (0.0-7.0); Hematocrit 40.8 % (36.0-46.0); Hemoglobin 13.1 g/dL (12.2-16.2); Mean Corpuscular Hemoglobin 33.6 pg (28.0-32.0); Mean Corpuscular Hgb Conc. 32.2 g/dL (32.0-36.0); Mean Corpuscular Volume 104.4 fL (80.0-100.0); Monocytes % (auto) 5.6 % (0.0-12.0); Neutrophils # (auto) 9.9 10 ^3/uL (1.6-8.6); Neutrophils % (auto) 82.2 % (37.0-80.0); Platelet Count (auto) 457 10^3/uL (140-450); Red Blood Cells 3.91 10^6/uL (4.0-5.20); Red Cell Distribution Width 15.7 % (11.8-14.3)
--- NOTE | 2024-05-10 20:16 | DVH ---
Procedure: XY CHEST TWO VIEWS ROUTINE 05/10/2024 07:47 PM Indication: vomiting, SOB Comparison: XY CHEST TWO VIEWS ROUTINE on DOS: 09/24/22 TECHNIQUE: XY CHEST TWO VIEWS ROUTINE Findings/ IMPRESSION: Patchy interstitial opacities which raise concern for possible aspiration pneumonia versus chronic in terstitial lung disease in the right lower lung zone. Compression severe compression deformities in t he upper lumbar spine vertebral bodies.
[2024-05-10 20:19] LABS: INR 1.01 (0.9-1.15); Partial Thromboplastin Time 25.4 SEC (24.5-34.5); Prothrombin Time 10.7 sec (9.3-11.8)
[2024-05-10 20:25] LABS: Alanine Aminotransferase 30 U/L (7-40); Albumin 4.4 g/dL (3.2-4.8); Alkaline Phosphatase 101 U/L (46-116); Anion Gap 8 (5-15); Aspartate Aminotransferase 31 U/L (13-40); BUN/Creatinine Ratio 14.9 (10.0-20.0); Bilirubin, Total 0.2 mg/dL (0.2-1.0); Blood Urea Nitrogen 11 mg/dL (9-23); Carbon Dioxide 31 mmol/L (20-31); Chloride 99 mmol/L (98-107); Glucose 85 mg/dL (74-106); Potassium 3.5 mmol/L (3.5-5.1); Sodium 138 mmol/L (136-145); Total Protein 6.6 g/dL (5.7-8.2)
--- NOTE | 2024-05-10 21:35 | DVHINCON2 ---
Date of service: May 16, [address] Campo Reason for Consultation Medical Management History of Present Illness This is a 78-year-old female with listed past medical history who presented with shortness of breath after taking in some solid food. Patient apparently was supposed to be on a liquid diet but had some Hank at the recommendation of her son subsequent to which she started retching with nonbilious, nonbloody emesis episode subsequent with shortness of breath evaluated at [facility] Emergency room. Patient elaborates that she knows she was not supposed to have solids. She was running diagnosed with peptic ulcer disease and jg mmended to be on liquid diet with Protonix and Carafate by the connection worker and she was following the recommendations and until the day before presentation. In the emergency room, patient felt much better. She had transient epigastric abdominal pain at the time of presentation but that has also since resolved. No major events reported overnight. Patient denies complaints of fevers, chills, change in appetite, chest pain, palpitations, cough, shortness of breath, dyspnea on exertion, abdominal pain, nausea, vomiting, diarrhea, constipation, dysuria, lightheadedness, weakness, paresthesia or other complaints. Last bowel movement was yesterday, brown, soft, no melena, no hematochezia. Past Medical History COPD Chronic respiratory failure on home oxygen therapy Iron deficiency anemia GERD Hypertension Family History: Alzheimer's disease G8 FATHER FH: heart disease G8 MOTHER FH: pancreatic cancer G8 BROTHER Social History Patient denies current smoking, alcohol use or recreational/illicit drug use. Allergies: Coded Allergies: NO KNOWN ALLERGIES (Unverified , 09/24/22) Home Meds Active Scripts Amoxicillin & Pot Clavulanate (AUGMENTIN TABLET) 875 Mg Tb, 875 MG PO BID, #20 TAB Prov:ANIL LINARES MD 05/13/24 Docusate Sodium (Docusate Sodium) 100 Mg Cap, 100 MG PO BID PRN, #28 CAP Prov:RIDDHI RANGEL MD 04/17/24 Sucralfate (CARAFATE) 1 Gm Tab, 1 GM PO Q6HR, #120 TAB Prov:RIDDHI RANGEL MD 04/17/24 Prednisone (Prednisone) 20 Mg Tab, 20 MG PO UD, #38 MG Take 60mg by mouth dailyx3 days then 50mg dailyx3 days then 40mg dailyx3 days then 30mg dailyx3 days then 20mg dailyx7 days then 10mg daily x 7 days Prov:RIDDHI RANGEL MD 03/13/24 Ferrous Sulfate (Ferrous Sulfate) 325 Mg Tab, 325 MG PO TIDWM, #90 TAB Prov:RIDDHI RANGEL MD 06/29/23 Reported Medications Pantoprazole Sodium Sesquihydr (Protonix) 40 Mg Tab, 20 MG PO BID, #30 TAB 05/11/24 Multiple Vitamin (Multivitamins) Tab, 1 TAB PO DAILY, #90 TAB 3 Refills 05/11/24 Buprenorphine (Butrans) 15 Mcg/Hr Dis, 15 MCG TD QWEEKLY, DIS 05/11/24 Oxycodone W/ Acetaminophen (Percocet 5/325MG) 1 Tab Tb, 2 TAB PO QID, #120 TAB 05/11/24 Potassium Chloride (POTASSIUM CHLORIDE CR) 10 Meq Tb, 1 TAB PO DAILY, #30 TAB 5 Refills 05/11/24 Levothyroxine Sodium (Levothyroxine Sodium) 25 Mcg Tab, 25 MCG PO QAM, MCG 05/11/24 Omeprazole (Gnp Omeprazole) 20 Mg Tab, 2 TAB PO BID, #90 TAB 1 Refill 05/11/24 Metoprolol Succinate (Metoprolol Succinate Er) 25 Mg Tab, 25 MG PO BID, TAB 05/11/24 Hydrochlorothiazide (Hydrochlorothiazide) 25 Mg Tab, 25 MG PO DAILY for 30 Days, MG 05/11/24 Midodrine HCl (Midodrine Hydrochloride) 10 Mg Tab, 10 MG PO TID, TAB 05/11/24 Lorazepam (ATIVAN TABLET) 0.5 Mg Tb, 1 TAB PO DAILYPRN PRN for ANXIETY, #30 TAB 05/11/24 Hydralazine Hcl (Hydralazine Hcl) 25 Mg Tab, 25 MG PO BIDPRN for 30 Days, MG 05/11/24 Apixaban Base (ELIQUIS) 2.5 Mg Tab, 2.5 MG PO BID, TAB 05/11/24 Albuterol Sulfate (Albuterol Sulfate) 2 Mg Tab, 2 MG PO Q6HP PRN for SHORTNESS OF BREATH, MG 04/16/24 Hcligqizfnh-Qeqkdjebrrva-Xzjlq (Trelegy Ellipta 100-62.5-25 Mcg/INH) 1 Aer Aer, 1 AER IN DAILY, AER 04/16/24 Buprenorphine (BUTRANS) 5 Mcg/Hr Dis, 15 MCG TD BID, DIS 04/16/24 Hydroxyzine Hcl (Hydroxyzine Hcl) 25 Mg Tab, 25 MG PO BID for 30 Days, MG 04/16/24 Bupropion Hcl (Bupropion Hcl) 100 Mg Tab, 150 MG PO DAILY for 30 Days, MG 04/16/24 Amiodarone Hcl (Amiodarone Hcl) 200 Mg Tab, 200 MG PO DAILY for 30 Days 04/16/24 Ondansetron HCl (Ondansetron) 4 Mg Tab, 4 MG PO TID, TAB 04/16/24 Lidocaine (Lidocaine Patch 5%) 5 % Pad, 5 % EX [id number], PAD 04/15/24 Discontinued Scripts Doxycycline (Monohydrate) (Doxycycline) 100 Mg Cap, 100 MG PO BID, #14 CAP Prov:RIDDHI RANGEL MD 04/17/24 Vital Signs Vital Signs Date Time Temp Pulse Resp B/P (MAP) Pulse Ox O2 Delivery O2 Flow Rate FiO2 05/10/24 19:28 97.7 67 18 95/61 (72) 91 Physical Exam Physical Exam: General: This is a 78-year-old female appearing stated age in no acute distress. HEENT: Pupils equal and reactive to light and accommodation. Extraocular muscles intact. Mucous membranes moist. Conjunctivae [place]. Anicteric Sclera. Lungs: Bilateral air entry; no wheezes, rhonchi, rales. Heart: Regular Rate and Rhythm. Normal S1/S2. Abdomen: Bowel Sounds Normoactive, soft, non-tender, non-distended, no cva tenderness. Extremities: No clubbing, cyanosis, edema. No calf tenderness. Pedal pulses 2+. Neurologic: Patient alert, awake and oriented x 3. Cranial nerves II through XII intact. No focal deficits on gross sensorimotor exam. Labs/Diagnostic Data Labs Test 05/10/24 19:49 05/10/24 19:44 Range/Units White Blood Count 12.0 H 4.4-10.8 10^3/uL Red Blood Count 3.91 L 4.0-5.20 10^6/uL Hemoglobin 13.1 12.2-16.2 g/dL Hematocrit 40.8 36.0-46.0 % Mean Corpuscular Volume 104.4 H 80.0-100.0 fL Mean Corpuscular Hemoglobin 33.6 H 28.0-32.0 pg Mean Corpuscular Hemoglobin Concent 32.2 32.0-36.0 g/dL Red Cell Distribution Width 15.7 H 11.8-14.3 % Platelet Count 457 H 140-450 10^3/uL Mean Platelet Volume 6.6 L 6.9-10.8 fL Neutrophils (%) (Auto) 82.2 H 37.0-80.0 % Lymphocytes (%) (Auto) 11.3 10.0-50.0 % Monocytes (%) (Auto) 5.6 0.0-12.0 % Eosinophils (%) (Auto) 0.4 0.0-7.0 % Basophils (%) (Auto) 0.5 0.0-2.0 % Neutrophils # (Auto) 9.9 H 1.6-8.6 10 ^3/uL Lymphocytes # (Auto) 1.4 0.4-5.4 10 ^3/uL Monocytes # (Auto) 0.7 0-1.3 10 ^3/uL Eosinophils # (Auto) 0.1 0-0.8 10 ^3/uL Basophils # (Auto) 0.1 0-0.2 10 ^3/uL Nucleated Red Blood Cells 0.0 % Prothrombin Time 10.7 9.3-11.8 sec Prothrombin Time INR 1.01 0.9-1.15 Activated Partial Thromboplast Time 25.4 24.5-34.5 SEC Sodium Level 138 136-145 mmol/L Potassium Level 3.5 3.5-5.1 mmol/L Chloride Level 99 98-107 mmol/L Carbon Dioxide Level 31 20-31 mmol/L Anion Gap 8 5-15 Blood Urea Nitrogen 11 9-23 mg/dL Creatinine 0.74 0.550-1.02 mg/dL Glomerular Filtration Rate Calc 84 >90 mL/min BUN/Creatinine Ratio 14.9 10.0-20.0 Serum Glucose 85 74-106 mg/dL Calcium Level 10.0 8.7-10.4 mg/dL Total Bilirubin 0.2 0.2-1.0 mg/dL Aspartate Amino Transferase (AST) 31 13-40 U/L Alanine Aminotransferase (ALT) 30 7-40 U/L Alkaline Phosphatase 101 46-116 U/L Troponin I High Sensitivity 41 *H </=34 ng/L Total Protein 6.6 5.7-8.2 g/dL Albumin 4.4 3.2-4.8 g/dL Lactic Acid Level 1.1 0.4-2.0 mmol/L Plan/Recommendation This is a 78-year-old female with a past medical history who presented with transient shortness of breath and epigastric pain evaluated at [facility] Emergency room. Chest x-ray was notable for patchy interstitial o pacities but patient did not have any fevers, leukocytosis or respiratory failure. She has chronic respiratory failure on home oxygen therapy and is at baseline. In fact, in the emergency room, lowest O2 sat on room air was 91%. Patient does not appear toxic and she is hemodynamically and clinically stable. She does not want to be admitted to the hospital and is hoping that she can be discharged with the son to follow up as outpatient. Moreover, given her vomiting and epigastric pain, I ordered a CT of the abdomen and pelvis to complete my assessment prior to making recommendations of placing the patient under observation or agreeing with her request to be discharged home. However, I suddenly found admission orders to be placed by another primary care provider without my knowledge. Hence, I signed off the case. Thank you for allowing me to participate in the care of your patient. Please not hesitate to contact me with any further questions or concerns. This is notable that patient has stated that I am also her primary care physician and I instructed her to follow up with me after discharge within 3-5 days. All above discussed with the patient who verbalized agreement and understanding of current status and plan. All questions answered. Patient declined reaching out to any family for update. Patient has intact medical decision-making capacity. This medical document was created using an electronic medical record system with [employer] dictation system. Although this document has been carefully reviewed, there may still be some phonetic and typographical errors. These areas are purely typographical due to imperfections of the software programs, and do not reflect any compromise in the patient's medical care Plan discussed with: Other RIDDHI RANGEL MD May 10, 2024 21:35
[2024-05-10] MEDS ORDERED: DOCUSATE SOD 100 MG CAP PO PRN (22:00)
--- NOTE | 2024-05-10 22:25 | DVH ---
Exam: CT CT AB PEL WO CON-NO ORAL OR IV History: Vomiting Comparison Study: None available at time of dictation. Technique: Multidetector spiral CT of the abdomen was performed from lung bases to pubic symphysis. Imaging was performed without IV contrast. Axial, coronal and sagittal multiplanar reformats were ob tained from the axial data set by the technologist. Radiation Dose : 1. Abdomen/Pelvis: CTDIvol 5 mGy, DLP 276 mGy*cm. Findings: Evaluation of solid organs is limited due to lack of intravenous contrast use. Lung Bases: Tree-in-bud nodular opacities seen in the right lower lobe. Liver: The liver is normal in size. No focal lesions. Gallbladder and Biliary Tree: Gallbladder is surgically absent. Spleen: Unremarkable Pancreas: The pancreas is grossly normal in appearance. Adrenal Glands: Unremarkable Kidneys: Kidneys are grossly normal without calculi or hydronephrosis. Bladder: Grossly unremarkable for degree of distention. Bowel: The stomach is grossly normal in appearance. Small bowel and colon are normal in caliber and d istribution. Normal appendix is visualized in the right lower quadrant without findings of appendici tis. Ascites: Absent Lymphadenopathy: No mesenteric, retroperitoneal or periportal lymphadenopathy. Abdominal Wall and Mesentery: Unremarkable. Vasculature: The visualized abdominal aorta is normal in size and caliber. Evaluation of abdominal a nd pelvic vessels is limited due to lack of intravenous contrast. Pelvic Organs: Hysterectomy. Limited evaluation due to streaking artifact. Musculoskeletal: No aggressive focal bony lesions, acute fractures or dislocation. Status post total left hip arthroplasty. Calcified bilateral breast implants. Severe chronic appearing compression defo rmity at T11. IMPRESSION: Tree-in-bud nodular opacities in the right lower lobe which are nonspecific but can be seen with atyp ical infections and other etiologies. Ancillary findings of the abdomen and pelvis as described above.
--- NOTE | 2024-05-10 23:03 | DVHHP2 ---
History of Present Illness Reason for Visit: Pneumonia, unspecified organism History of Present Illness The patient is a 78 years female with past medical history of AFib, anemia, COPD, GERD, hypertension, and thyroid disease presented to [facility] ED with complaint of shortness of breaths. Patient was on liquid diet, about an hour ago, she a [employer] sandwich and started vomiting, nausea, and belching afterward, getting worse that prompted this visit. Patient was seen and evaluated in the ED, laboratory data shows WBC 12 0, platelets 457, sodium 138, potassium 3.5, BUN 11, creatinine 0.74, glucose 85, troponin 41. Chest x-ray revealing patchy interstitial opacities which raised concern for possible aspiration pneumonia versus chronic interstitial lung disease in the right lower lung zone; severe compression deformities in the upper lumbar spine vertebral bodies. Patient was started on IV antibiotic regimen azithromycin, please see medication orders section in the computer. On my assessment, patient denied chest pain, no headache, no dizziness, no diaphoresis, no nausea, no vomiting, no fever, no chills. Patient was admitted for further evaluation and medical management. Past Medical History AFIB, Anemia, COPD, GERD, HTN, Thyroid Past Surgical History Cholecystectomy, Hernia Repair, Tonsillectomy Family History Reviewed, noncontributory to the management of this case. Past Social History Patient lives at home, quit smoking greater than 1 year, denies alcohol or illic it drugs abuse. Review of Systems Constitutional: Yes: Weakness; No: Fever, Chills, Sweats, Malaise, Other Eyes: No: Pain, Vision change, Conjunctivae inflammation, Eyelid inflammation, Other, Redness ENT: No: Ear pain, Ear discharge, Nose pain, Nose discharge, Nose congestion, Mouth pain, Mouth swelling, Throat pain, Throat swelling, Other Respiratory: Cough, Shortness of breath, SOB with excertion; No: Dry, Wheezing, Hemoptysis, Pleuritic Pain, Sputum, Wheezing, Other Cardiovascular: No: Chest Pain, Palpitations, Orthopnea, Paroxysmal Noc. Dyspnea, Edema, Lt Headedness, Other Gastrointestinal: Nausea, Vomiting; No: Abdominal Pain, Diarrhea, Constipation, Melena, Hematochezia, Other Genitourinary: No Dysuria, No Frequency, No Incontinence, No Hematuria, No Retention, No Other Musculoskeletal: No: other, neck pain, shoulder pain, arm pain, back pain, hand pain, leg pain, foot pain Skin: No: Rash, Lesions, Jaundice, Bruising, Other Neurological: No: Weakness, Numbness, Incoordination, Change in speech, Confusion, Seizures, Other Allergies: Coded Allergies: NO KNOWN ALLERGIES (Unverified , 09/24/22) Medications Current Medications Medications Dose Ordered Sig/Fabi Route Start Time Stop Time Status Last Admin Dose Admin Ceftriaxone Sodium 50 ml @ 100 mls/hr DAILY@09 IV 05/11/24 09:00 Azithromycin 250 ml @ 125 mls/hr DAILY IV 05/11/24 10:00 Pantoprazole Sodium 40 mg DAILY IV 05/11/24 10:00 Levothyroxine Sodium 50 mcg QAM@0600 PO 05/11/24 06:00 Sodium Chloride 1,000 ml @ 60 mls/hr [id number] IV 05/10/24 22:00 Acetaminophen/ Hydrocodone Bitart 1 tab Q4HP PRN PO 05/10/24 22:00 Ondansetron HCl 4 mg Q4HP PRN IV 05/10/24 22:00 Docusate Sodium 100 mg BIDPRN PRN PO 05/10/24 22:00 Acetaminophen 650 mg Q6HP PRN PO 05/10/24 22:00 Exam Vital Signs Vital Signs Date Time Temp Pulse Resp B/P (MAP) Pulse Ox O2 Delivery O2 Flow Rate FiO2 05/10/24 19:28 97.7 67 18 95/61 (72) 91 General Appearance: Alert, Oriented X3, Cooperative, No acute distress HEENT: Atraumatic, PERRLA, EOMI, Mucous membr. moist/pink Respiratory: Normal air movement, Other (Diminished breath sounds) Cardiovascular: Regular rate, Normal S1, Normal S2, No murmurs Abdominal: Normal bowel sounds, Soft, No tenderness, No hepatospenomegaly, No masses Extremities: No clubbing, No cyanosis, No edema, Normal pulses, No tenderness/swelling Skin: No rashes, No breakdown, No significant lesion Neuro: Normal speech, Normal tone, Sensation intact, Cranial nerves 3-12 NL, Reflexes 2+, Other (Generalized weakness) Psych/Mental Status: Mental status NL, Mood NL Labs/Xrays Labs Test 05/10/24 19:49 05/10/24 19:44 Range/Units White Blood Count 12.0 H 4.4-10.8 10^3/uL Red Blood Count 3.91 L 4.0-5.20 10^6/uL Hemoglobin 13.1 12.2-16.2 g/dL Hematocrit 40.8 36.0-46.0 % Mean Corpuscular Volume 104.4 H 80.0-100.0 fL Mean Corpuscular Hemoglobin 33.6 H 28.0-32.0 pg Mean Corpuscular Hemoglobin Concent 32.2 32.0-36.0 g/dL Red Cell Distribution Width 15.7 H 11.8-14.3 % Platelet Count 457 H 140-450 10^3/uL Mean Platelet Volume 6.6 L 6.9-10.8 fL Neutrophils (%) (Auto) 82.2 H 37.0-80.0 % Lymphocytes (%) (Auto) 11.3 10.0-50.0 % Monocytes (%) (Auto) 5.6 0.0-12.0 % Eosinophils (%) (Auto) 0.4 0.0-7.0 % Basophils (%) (Auto) 0.5 0.0-2.0 % Neutrophils # (Auto) 9.9 H 1.6-8.6 10 ^3/uL Lymphocytes # (Auto) 1.4 0.4-5.4 10 ^3/uL Monocytes # (Auto) 0.7 0-1.3 10 ^3/uL Eosinophils # (Auto) 0.1 0-0.8 10 ^3/uL Basophils # (Auto) 0.1 0-0.2 10 ^3/uL Nucleated Red Blood Cells 0.0 % Prothrombin Time 10.7 9.3-11.8 sec Prothrombin Time INR 1.01 0.9-1.15 Activated Partial Thromboplast Time 25.4 24.5-34.5 SEC Sodium Level 138 136-145 mmol/L Potassium Level 3.5 3.5-5.1 mmol/L Chloride Level 99 98-107 mmol/L Carbon Dioxide Level 31 20-31 mmol/L Anion Gap 8 5-15 Blood Urea Nitrogen 11 9-23 mg/dL Creatinine 0.74 0.550-1.02 mg/dL Glomerular Filtration Rate Calc 84 >90 mL/min BUN/Creatinine Ratio 14.9 10.0-20.0 Serum Glucose 85 74-106 mg/dL Calcium Level 10.0 8.7-10.4 mg/dL Total Bilirubin 0.2 0.2-1.0 mg/dL Aspartate Amino Transferase (AST) 31 13-40 U/L Alanine Aminotransferase (ALT) 30 7-40 U/L Alkaline Phosphatase 101 46-116 U/L Troponin I High Sensitivity 41 *H </=34 ng/L Total Protein 6.6 5.7-8.2 g/dL Albumin 4.4 3.2-4.8 g/dL Lactic Acid Level 1.1 0.4-2.0 mmol/L PATIENT: MILES TOWNSEND ACCT: [id number] UNIT: [id number] : 1945 LOC: ER ROOM / BED: / AGE / SEX: 78 / F ADM STATUS: REG ER SERVICE 34 ORDERING PHYSICIAN: RIDDHI RANGEL MD PROCEDURE(s): ABPL - CT AB PEL WO CON-NO ORAL OR IV REASON: Vomiting ORDER NUMBER(s): [id number], ACCESSION NUMBER(s): [id number] Exam: CT CT AB PEL WO CON-NO ORAL OR IV History: Vomiting Comparison Study: None available at time of dictation. Technique: Multidetector spiral CT of the abdomen was performed from lung bases to pubic symphysis. Imaging was performed without IV contrast. Axial, coronal and sagittal multiplanar reformats were obtained from the axial data set by the technologist. Radiation Dose : 1. Abdomen/Pelvis: CTDIvol 5 mGy, DLP 276 mGy*cm. Findings: Evaluation of solid organs is limited due to lack of intravenous contrast use. Lung Bases: Tree-in-bud nodular opacities seen in the right lower lobe. Liver: The liver is normal in size. No focal lesions. Gallbladder and Biliary Tree: Gallbladder is surgically absent. Spleen: Unremarkable Pancreas: The pancreas is grossly normal in appearance. Adrenal Glands: Unremarkable Kidneys: Kidneys are grossly normal without calculi or hydronephrosis. Bladder: Grossly unremarkable for degree of distention. Bowel: The stomach is grossly normal in appearance. Small bowel and colon are normal in caliber and distribution. Normal appendix is visualized in the right lower quadrant without findings of appendicitis. Ascites: Absent Lymphadenopathy: No mesenteric, retroperitoneal or periportal lymphadenopathy. Abdominal Wall and Mesentery: Unremarkable. Vasculature: The visualized abdominal aorta is normal in size and caliber. Evaluation of abdominal and pelvic vessels is limited due to lack of intravenous contrast. Pelvic Organs: Hysterectomy. Limited evaluation due to streaking artifact. Musculoskeletal: No aggressive focal bony lesions, acute fractures or dislocation. Status post total left hip arthroplasty. Calcified bilateral breast implants. Severe chronic appearing compression deformity at T11. IMPRESSION: Tree-in-bud nodular opacities in the right lower lobe which are nonspecific but can be seen with atypical infections and other etiologies. Ancillary findings of the abdomen and pelvis as described above. ORDERING PHYSICIAN: RAUL ORELLANA MD PROCEDURE(s): CXR2 - CHEST TWO VIEWS ROUTINE REASON: vomiting, SOB ORDER NUMBER(s): [id number], ACCESSION NUMBER(s): [id number] Procedure: XY CHEST TWO VIEWS ROUTINE 05/10/2024 07:47 PM Indication: vomiting, SOB Comparison: XY CHEST TWO VIEWS ROUTINE on DOS: 09/24/22 TECHNIQUE: XY CHEST TWO VIEWS ROUTINE Findings/ IMPRESSION: Patchy interstitial opacities which raise concern for possible aspiration pneumonia versus chronic interstitial lung disease in the right lower lung zone. Compression severe compression deformities in the upper lumbar spine vertebral bodies. Assessment/Plan Assessment/Plan Acute respiratory failure Aspiration pneumonia Leukocytosis, unspecified Generalized weakness Plan 1. Admit to Med-Surg unit 2. Breathing treatment 3. Pain control management 4. IV antibiotic management 5. Management of fluids and electrolytes 6. Consultation for hospitalist 7. Diagnostic test chest x-ray 8. DVT prophylaxis-on SCDs 9. Repeat labs CBC, CMP in a.m. 10. Home medication reviewed and reconciled 11. Continue with current medical management 12. Treatment plan discussed with patient and RN. Patient verbalized understanding. Plan discussed with: Patient, Other (RN) My Orders Orders - MARLENE GAUTHIER DNP Procedure Category Date Status Time Ceftriaxone 1gm/50ml PHA 05/11/24 In Process D5w (Rocephin) 09:00 Azithromycin 500mg/ PHA 05/11/24 In Process 250ml (Zithromax 50 10:00 Pantoprazole PHA 05/11/24 In Process (Protonix) 10:00 Levothyroxine Tablet PHA 05/11/24 In Process (Synthroid Tablet) 06:00 Allergies BRIAN 05/10/24 In Process 21:51 Code Status CODE 05/10/24 Transmitted 21:51 Sodium Chloride 0.9% PHA 05/10/24 In Process 22:00 Oxygen Per Hour RT 05/10/24 Transmitted 21:51 Hydrocodone-Acet PHA 05/10/24 In Process 5/325mg Tab ([place] 22:00 Ondansetron Hcl PHA 05/10/24 In Process (Zofran) 22:00 Docusate Sodium PHA 05/10/24 In Process Capsule (Colace 22:00 Complete Blood Count LAB 05/11/24 Verified 04:00 Comprehensive LAB 05/11/24 Verified Metabolic Panel 04:00 Cardiac DIET 05/11/24 Transmitted Diet-2gna,Lofat,Lochol Breakfast Condition: Serious BRIAN 05/10/24 In Process 21:51 Acetaminophen Tablet PHA 05/10/24 In Process (Tylenol Tablet) 22:00 Bedrest With Bathroom BRIAN 05/10/24 In Process Privileg 21:51 Sequential BRIAN 05/10/24 In Process Compression Device Admit ADMIT 05/10/24 Verified 23:01 Nitroglycerin PHA 05/10/24 Verified Sublingual (Ntrostat 23:15 Morphine Sulfate PHA 05/10/24 Verified Injection 23:15 Notify Md Of Changes BRIAN 05/10/24 Verified From Base 23:01 Emergency Dysrhythmia BRIAN 05/10/24 Verified Protocol 23:01 Oxygen By Nasal RT 05/10/24 Verified Cannula 23:01 Problem List: (1) Acute respiratory failure (2) Aspiration pneumonia (3) Generalized weakness (4) Leukocytosis, unspecified Date of Service: May 10, 2024 Billing Provider: MARLENE GAUTHIER DNP Common Visit Codes: [id number] INP/OBS CARE (HIGH) MARLENE GAUTHIER DNP May 10, 2024 23:02
[2024-05-10] MEDS ORDERED: MORPHINE SULFATE INJ 2 MG/ml SYRG IV PRN (23:15)
[2024-05-10] MEDS ORDERED: NITROGLYCERIN 0.4 MG SL TAB SL PRN (23:15)
[2024-05-10 23:29] LABS: Urine Bacteria None Seen /hpf (None Seen)
[2024-05-10 23:43] LABS: Urine Blood Negative /uL (Negative); Urine Clarity Turbid (Clear); Urine Color Dark-Yellow (Yellow); Urine Hyaline Cast MANY /lpf (0 - 2); Urine Mucus FEW (None Seen); Urine Protein, UAD 1+ (Negative); Urine Specific Gravity 1.035 (1.001-1.035); Urine Urobilinogen 2 mg/dL (Negative); Urine WBC 1 /hpf (0 - 5)
[2024-05-11] VITALS (8 sets, daily range): BP systolic 90–117; BP diastolic 45–66; PULSE 67–77; RESP 16–20; TEMP 97.4–97.8; O2SAT 91–98
[2024-05-11] MEDS: ONDANSETRON ODT 4 MG TAB PO ONE (01:11)
[2024-05-11] MEDS: cefTRIAXone 1GM/50ML D5W 50 ML IV ONE (01:12)
[2024-05-11] MEDS: AZITHROMYCIN 500MG/ 250ML 250 ML IV ONE (02:13)
[2024-05-11] MEDS: MORPHINE SULFATE INJ 2 MG/ml SYRG IV PRN (02:24)
[2024-05-11] MEDS: LEVOTHYROXINE SODIUM 50 MCG TAB PO SCH (06:14)
[2024-05-11 07:25] LABS: Basophils # (auto) 0.1 10 ^3/uL (0-0.2); Eosinophils # (auto) 0 10 ^3/uL (0-0.8); Eosinophils % (auto) 0.4 % (0.0-7.0); Lymphocytes # (auto) 1.5 10 ^3/uL (0.4-5.4); Monocytes # (auto) 0.6 10 ^3/uL (0-1.3); Neutrophils # (auto) 7.5 10 ^3/uL (1.6-8.6); Red Cell Distribution Width 15.3 % (11.8-14.3); White Blood Cell 9.7 10^3/uL (4.4-10.8)
[2024-05-11 07:27] LABS: Basophils % (auto) 0.7 % (0.0-2.0); Hematocrit 38.5 % (36.0-46.0); Hemoglobin 12.6 g/dL (12.2-16.2); Lymphocytes % (auto) 15.6 % (10.0-50.0); Mean Corpuscular Hgb Conc. 32.9 g/dL (32.0-36.0); Mean Corpuscular Volume 103.5 fL (80.0-100.0); Neutrophils % (auto) 77.3 % (37.0-80.0); Platelet Count (auto) 428 10^3/uL (140-450); Red Blood Cells 3.71 10^6/uL (4.0-5.20)
[2024-05-11 07:39] LABS: Alanine Aminotransferase 25 U/L (7-40); Albumin 3.9 g/dL (3.2-4.8); Alkaline Phosphatase 88 U/L (46-116); Anion Gap 7 (5-15); Aspartate Aminotransferase 22 U/L (13-40); BUN/Creatinine Ratio 16.3 (10.0-20.0); Blood Urea Nitrogen 13 mg/dL (9-23); Calcium 9.7 mg/dL (8.7-10.4); Carbon Dioxide 32 mmol/L (20-31); Chloride 100 mmol/L (98-107); Glucose 87 mg/dL (74-106); Sodium 139 mmol/L (136-145)
[2024-05-11 07:40] LABS: Bilirubin, Total 0.2 mg/dL (0.2-1.0)
[2024-05-11] MEDS: PANTOPRAZOLE 40 MG/10 ML VIAL INJ IV SCH (10:29)
[2024-05-11] MEDS: cefTRIAXone 1GM/50ML D5W 50 ML IV SCH (10:29)
[2024-05-11] MEDS: AZITHROMYCIN 500MG/ 250ML 250 ML IV SCH (12:48)
--- NOTE | 2024-05-11 13:58 | DVHPN2 ---
Subjective The patient seen an examined at bedside. Patient has shortness of breath. Reviewed: Care Plan, H&P, Labs, Medications, Previous Orders, Radiology Changes from previous H/P or p: No Changes Eyes: No Pain, No Vision change, No Conjunctivae inflammation, No Eyelid inflammation, No Other, No Redness ENT: No Ear pain, No Ear discharge, No Nose pain, No Nose discharge, No Nose congestion, No Mouth pain, No Mouth swelling, No Throat pain, No Throat swelling, No Other Cardiovascular: No Chest Pain, No Palpitations, No Orthopnea, No Paroxysmal Noc. Dyspnea, No Edema, No Lt Headedness, No Other Respiratory: Cough; No Dry; Shortness of breath, SOB with excertion; No Wheezing, No Hemoptysis, No Pleuritic Pain, No Sputum, No Other Gastrointestinal: Nausea, Vomiting; No Abdominal Pain, No Diarrhea, No Constipation, No Melena, No Hematochezia, No Other Genitourinary: No Dysuria, No Frequency, No Incontinence, No Hematuria, No Retention, No Other Musculoskeletal: No other, No neck pain, No shoulder pain, No arm pain, No back pain, No hand pain, No leg pain, No foot pain Skin: No Rash, No Lesions, No Jaundice, No Bruising, No Other Objective Vitals Vital Signs Date Time Temp Pulse Resp B/P (MAP) Pulse Ox O2 Delivery O2 Flow Rate FiO2 05/11/24 10:00 97.7 67 18 90/45 (60) 91 97.7 05/11/24 08:00 Nasal Cannula* 2 28 Intake/Output Intake and Output 05/11/24 07:00 Intake Total 600 ml Balance 600 ml Intake IV Total 600 ml General Appearance: Alert, Oriented X3, Cooperative HEENT: Atraumatic, PERRLA, EOMI, Mucous membr. moist/pink Neck: Supple Lungs: Clear to auscultation, Normal air movement Cardiovascular: Regular rate, Normal S1, Normal S2, No murmurs, Gallops, Rubs Abdomen: Normal bowel sounds, Soft, No tenderness Neuro: Cranial nerves 3-12 NL Psych/Mental Status: Mental status NL Medications Current Medications Medications Dose Ordered Sig/Fabi Route Start Time Stop Time Status Last Admin Dose Admin Ceftriaxone Sodium 50 ml @ 100 mls/hr DAILY@09 IV 05/11/24 09:00 05/11/24 10:29 100 MLS/HR Azithromycin 250 ml @ 125 mls/hr DAILY IV 05/11/24 10:00 05/11/24 12:48 125 MLS/HR Pantoprazole Sodium 40 mg DAILY IV 05/11/24 10:00 05/11/24 10:29 40 MG Levothyroxine Sodium 50 mcg QAM@0600 PO 05/11/24 06:00 05/11/24 06:14 50 MCG Sodium Chloride 1,000 ml @ 60 mls/hr [id number] IV 05/10/24 22:00 05/10/24 01:00 60 MLS/HR Acetaminophen/ Hydrocodone Bitart 1 tab Q4HP PRN PO 05/10/24 22:00 Ondansetron HCl 4 mg Q4HP PRN IV 05/10/24 22:00 Docusate Sodium 100 mg BIDPRN PRN PO 05/10/24 22:00 Acetaminophen 650 mg Q6HP PRN PO 05/10/24 22:00 Nitroglycerin 0.4 mg Q5MINP PRN SL 05/10/24 23:15 Morphine Sulfate 2 mg Q30M PRN IV 05/10/24 23:15 Morphine Sulfate 2 mg Q4HPRN PRN IV 05/11/24 01:45 05/11/24 06:14 2 MG Laboratory Results Laboratory Tests 05/11/24 06:55 Chemistry Test 05/10/24 19:49 05/11/24 06:55 Albumin 4.4 g/dL (3.2-4.8) 3.9 g/dL (3.2-4.8) Calcium Level 10.0 mg/dL (8.7-10.4) 9.7 mg/dL (8.7-10.4) Total Protein 6.6 g/dL (5.7-8.2) 6.0 g/dL (5.7-8.2) Coagulation Test 05/10/24 19:49 Prothrombin Time 10.7 sec (9.3-11.8) Prothrombin Time INR 1.01 (0.9-1.15) Activated Partial Thromboplast Time 25.4 SEC (24.5-34.5) LFT Test 05/10/24 19:49 05/11/24 06:55 Alanine Aminotransferase (ALT) 30 U/L (7-40) 25 U/L (7-40) Alkaline Phosphatase 101 U/L (46-116) 88 U/L (46-116) Aspartate Amino Transferase (AST) 31 U/L (13-40) 22 U/L (13-40) Total Bilirubin 0.2 mg/dL (0.2-1.0) 0.2 mg/dL (0.2-1.0) Urinalysis Test 05/10/24 23:15 Urine Color Dark-yellow (Yellow) Urine Clarity Turbid (Clear) H Urine pH 6.0 (5.0-9.0) Urine Specific [place] 1.035 (1.001-1.035) Urine Protein 1+ (Negative) H Urine Ketones Trace (Negative) Urine Blood Negative /uL (Negative) Urine Nitrite Negative (Negative) Urine Bilirubin Negative (Negative) Urine Urobilinogen 2 mg/dL (Negative) H Urine Leukocyte Esterase Negative /uL (Negative) Urine RBC 1 /hpf (0 - 4) Urine WBC 1 /hpf (0 - 5) Urine Squamous Epithelial Cells Few /hpf (<5) Urine Bacteria None seen /hpf (None Seen) Urine Hyaline Casts Many /lpf (0 - 2) Urine Mucus Few (None Seen) Urine Glucose Normal mg/dL (Normal) Labs and/or images reviewed: Labs reviewed by me Assessment/Plan Assessment/Plan Acute respiratory failure Aspiration pneumonia Leukocytosis, unspecified Generalized weakness Continuing current management. Continuing with IV antibiotic Rocephin and Zithromax. Encouraged the patient to be out of bed and ambulate. Consult physical therapy. Plan discussed with: Patient Date of Service: May 11, 2024 Billing Provider: ANIL LINARES MD Common Visit Codes: [id number] INP/OBS CARE(HIGH) ANIL LINARES MD May 11, 2024 13:58
[2024-05-11] MEDS: predniSONE 5 MG TAB PO ONE (17:24)
[2024-05-11] MEDS: ACETAMINOPHEN 325 MG TAB PO PRN (17:46)
[2024-05-11] MEDS ORDERED: HYDR25TA88 PO (19:12)
[2024-05-11] MEDS ORDERED: POTA-36 PO (19:12)
[2024-05-11] MEDS ORDERED: LORA-1121 PO (19:12)
[2024-05-11] MEDS ORDERED: METO25TA93 PO (19:12)
[2024-05-11] MEDS ORDERED: BUPR1DIS TD (19:12)
[2024-05-11] MEDS ORDERED: PANT40TA2 PO (19:12)
[2024-05-11] MEDS ORDERED: PERCOT PO (19:12)
[2024-05-11] MEDS ORDERED: LEVO25TA6 PO (19:12)
[2024-05-11] MEDS ORDERED: APIX2.5T PO (19:12)
[2024-05-11] MEDS ORDERED: MIDO10TA10 PO (19:12)
[2024-05-11] MEDS ORDERED: HYDR25TA4 PO (19:12)
[2024-05-11] MEDS ORDERED: MULT-1018 PO (19:12)
[2024-05-11] MEDS ORDERED: OMEP20TA PO (19:12)
[2024-05-12] VITALS (7 sets, daily range): BP systolic 97–110; BP diastolic 46–72; PULSE 77–90; RESP 16–18; TEMP 97.3–97.8; O2SAT 90–97
[2024-05-12] MEDS: ONDANSETRON HCL 4 MG/2 ML VIAL IV PRN (01:47)
[2024-05-12] MEDS ORDERED: BUPRENORPHINE 15 MCG TD SCH ×2 (07:15→10:00)
[2024-05-12] MEDS ORDERED: PATIENTS OWN MEDICATION (Prednisone 20 MG) PO SCH (07:15)
[2024-05-12] MEDS: LORazepam 0.5 MG TAB PO PRN (07:37)
[2024-05-12] MEDS: HYDROcodone-ACET 5/325MG TAB PO PRN (07:37)
[2024-05-12] MEDS: FLUTICASONE UMECLIDINIUM VILAN IN SCH (10:00)
[2024-05-12] MEDS: LIDOCAINE 5% TOPICAL PATCH TOP SCH (10:00)
[2024-05-12] MEDS: METOPROLOL SUCCINATE XL 50 MG TAB PO SCH (10:00)
--- NOTE | 2024-05-12 10:08 | DVHPN2 ---
Subjective The patient is seen and examined at bedside. Patient said she feels better today. Less shortness for breath. No wheezing. Reviewed: Care Plan, H&P, Labs, Medications, Previous Orders, Radiology Changes from previous H/P or p: No Changes Eyes: No Pain, No Vision change, No Conjunctivae inflammation, No Eyelid inflammation, No Other, No Redness ENT: No Ear pain, No Ear discharge, No Nose pain, No Nose discharge, No Nose congestion, No Mouth pain, No Mouth swelling, No Throat pain, No Throat swelling, No Other Cardiovascular: No Chest Pain, No Palpitations, No Orthopnea, No Paroxysmal Noc. Dyspnea, No Edema, No Lt Headedness, No Other Respiratory: Cough; No Dry; Shortness of breath, SOB with excertion; No Wheezing, No Hemoptysis, No Pleuritic Pain, No Sputum, No Other Gastrointestinal: Nausea, Vomiting; No Abdominal Pain, No Diarrhea, No Constipation, No Melena, No Hematochezia, No Other Genitourinary: No Dysuria, No Frequency, No Incontinence, No Hematuria, No Retention, No Other Musculoskeletal: No other, No neck pain, No shoulder pain, No arm pain, No back pain, No hand pain, No leg pain, No foot pain Skin: No Rash, No Lesions, No Jaundice, No Bruising, No Other Objective Vitals Vital Signs Date Time Temp Pulse Resp B/P (MAP) Pulse Ox O2 Delivery O2 Flow Rate FiO2 05/12/24 09:00 97.7 88 18 100/57 (71) 95 97.7 05/11/24 20:00 Room Air* 0 21 Intake/Output Intake and Output 05/12/24 07:00 Intake Total 1020 ml Balance 1020 ml Intake Oral 970 ml IV Total 50 ml # Voids 6 General Appearance: Alert, Oriented X3, Cooperative, No acute distress HEENT: Atraumatic, PERRLA, EOMI, Mucous membr. moist/pink Neck: Supple Lungs: Clear to auscultation, Normal air movement Cardiovascular: Regular rate, Normal S1, Normal S2, No murmurs, Gallops, Rubs Abdomen: Normal bowel sounds, Soft, No tenderness Neuro: Cranial nerves 3-12 NL Psych/Mental Status: Mental status NL Medications Current Medications Medications Dose Ordered Sig/Fabi Route Start Time Stop Time Status Last Admin Dose Admin Ceftriaxone Sodium 50 ml @ 100 mls/hr DAILY@09 IV 05/11/24 09:00 05/11/24 10:29 100 MLS/HR Azithromycin 250 ml @ 125 mls/hr DAILY IV 05/11/24 10:00 05/11/24 12:48 125 MLS/HR Pantoprazole Sodium 40 mg DAILY IV 05/11/24 10:00 05/11/24 10:29 40 MG Levothyroxine Sodium 50 mcg QAM@0600 PO 05/11/24 06:00 Hold 05/12/24 06:08 50 MCG Sodium Chloride 1,000 ml @ 60 mls/hr [id number] IV 05/10/24 22:00 05/10/24 01:00 60 MLS/HR Acetaminophen/ Hydrocodone Bitart 1 tab Q4HP PRN PO 05/10/24 22:00 05/12/24 07:37 1 TAB Ondansetron HCl 4 mg Q4HP PRN IV 05/10/24 22:00 05/12/24 01:47 4 MG Docusate Sodium 100 mg BIDPRN PRN PO 05/10/24 22:00 Acetaminophen 650 mg Q6HP PRN PO 05/10/24 22:00 05/11/24 23:00 650 MG Nitroglycerin 0.4 mg Q5MINP PRN SL 05/10/24 23:15 Morphine Sulfate 2 mg Q30M PRN IV 05/10/24 23:15 Morphine Sulfate 2 mg Q4HPRN PRN IV 05/11/24 01:45 05/12/24 02:32 2 MG Prednisone 10 mg DAILY PO 05/12/24 10:00 Amiodarone HCl 200 mg DAILY PO 05/12/24 10:00 Apixaban 2.5 mg BID PO 05/12/24 10:00 Bupropion HCl 150 mg DAILY PO 05/12/24 10:00 Docusate Sodium 100 mg BID PO 05/12/24 10:00 Levothyroxine Sodium 25 mcg QAM PO 05/13/24 07:00 Lidocaine 1 patch [id number] TOP 05/12/24 10:00 Lorazepam 0.5 mg DAILYPRN PRN PO 05/12/24 07:15 05/12/24 07:37 0.5 MG Midodrine 10 mg TID PO 05/12/24 14:00 Multivitamins 1 tab DAILY PO 05/12/24 10:00 Sucralfate 1 gm Q6HR PO 05/12/24 12:00 Patient Own Medication 15 mcg BID TD 05/12/24 10:00 UNV Patient Own Medication 15 mcg QWEEKLY TD 05/12/24 07:15 UNV Patient Own Medication 1 aer DAILY IN 05/12/24 10:00 UNV Hydroxyzine Pamoate 25 mg BID PO 05/12/24 10:00 Metoprolol Succinate 25 mg BID PO 05/12/24 10:00 Potassium Chloride 10 meq DAILY PO 05/12/24 10:00 Laboratory Results Laboratory Tests 05/11/24 06:55 Urinalysis Test 05/10/24 23:15 Urine Color Dark-yellow (Yellow) Urine Clarity Turbid (Clear) H Urine pH 6.0 (5.0-9.0) Urine Specific [place] 1.035 (1.001-1.035) Urine Protein 1+ (Negative) H Urine Ketones Trace (Negative) Urine Blood Negative /uL (Negative) Urine Nitrite Negative (Negative) Urine Bilirubin Negative (Negative) Urine Urobilinogen 2 mg/dL (Negative) H Urine Leukocyte Esterase Negative /uL (Negative) Urine RBC 1 /hpf (0 - 4) Urine WBC 1 /hpf (0 - 5) Urine Squamous Epithelial Cells Few /hpf (<5) Urine Bacteria None seen /hpf (None Seen) Urine Hyaline Casts Many /lpf (0 - 2) Urine Mucus Few (None Seen) Urine Glucose Normal mg/dL (Normal) Microbiology Microbiology Date/Time Source Procedure Growth Status 05/10/24 19:49 Blood Blood Culture - Preliminary NO GROWTH AFTER 24 HOURS OF INCUBATION. Resulted Labs and/or images reviewed: Labs reviewed by me Assessment/Plan Assessment/Plan Acute respiratory failure Aspiration pneumonia Leukocytosis, unspecified Generalized weakness Continuing current management. Continuing with IV antibiotic Rocephin and Zithromax. Encouraged the patient to be out of bed and ambulate with physical therapy. Discharge planning. Plan discussed with: Patient My Orders Orders - ANIL LINARES MD Procedure Category Date Status Time Amiodarone Tablet PHA 05/12/24 In Process (Cordarone Tablet) 10:00 Apixaban (Eliquis) PHA 05/12/24 In Process 10:00 Bupropion Tablet PHA 05/12/24 In Process (Wellbutrin Tablet) 10:00 Docusate Sodium PHA 05/12/24 In Process Capsule (Colace 10:00 Levothyroxine Tablet PHA 05/13/24 In Process (Synthroid Tablet) 07:00 Lidocaine 5% Topical PHA 05/12/24 In Process Patch (Lidoderm 5% 10:00 Lorazepam Tablet PHA 05/12/24 In Process (Ativan Tablet) 07:15 Midodrine Tablet PHA 05/12/24 In Process (Proamatine Tablet) 14:00 Multiple Vitamin PHA 05/12/24 In Process Tablet (Mvi Tab) 10:00 Sucralfate Tab PHA 05/12/24 In Process (Carafate Tab) 12:00 (Nf) Buprenorphine PHA 05/12/24 Logged ([place]) 10:00 (Nf) Buprenorphine PHA 05/12/24 Logged ([place]) 07:15 (NF) PHA 05/12/24 Logged [id number] 10:00 Hydroxyzine Oral PHA 05/12/24 In Process (Vistaril Oral) 10:00 Metoprolol Xl PHA 05/12/24 In Process Succinate (Toprol Xl) 10:00 Potassium Er Tablet PHA 05/12/24 In Process (Klor-Con Tablet) 10:00 Date of Service: May 12, 2024 Billing Provider: ANIL LINARES MD Common Visit Codes: [id number] INP/OBS CARE(HIGH) ANIL LINARES MD May 12, 2024 10:08
[2024-05-12] MEDS: DOCUSATE SOD 100 MG CAP PO SCH (10:35)
[2024-05-12] MEDS: APIXABAN 2.5 MG TAB PO SCH (10:35)
[2024-05-12] MEDS: MULTIPLE VITAMIN TAB PO SCH (10:35)
[2024-05-12] MEDS: AMIODARONE HCL 200 MG TAB PO SCH (10:36)
[2024-05-12] MEDS: predniSONE 5 MG TAB PO SCH (10:37)
[2024-05-12] MEDS: hydrOXYzine 25 MG TAB or CAP PO SCH (10:37)
[2024-05-12] MEDS: buPROPion HCL 100 MG TAB PO SCH (10:37)
[2024-05-12] MEDS: POTASSIUM CHL 10 Meq TABLET PO SCH (10:38)
[2024-05-12] MEDS: SUCRALFATE 1 GM TAB PO SCH (12:30)
[2024-05-12] MEDS: MIDODRINE HCL 10 MG TAB PO SCH (15:20)
[2024-05-13 01:00] VITALS: BP 120/75; PULSE 64; RESP 17; TEMP 97.8; O2SAT 93
[2024-05-13 05:00] VITALS: BP 121/76; PULSE 61; RESP 17; TEMP 96.5; O2SAT 97
[2024-05-13] MEDS: LEVOTHYROXINE SODIUM 25 MCG TAB PO SCH (05:23)
[2024-05-13 08:20] VITALS: PULSE 86; RESP 18; O2SAT 92
[2024-05-13 09:00] VITALS: BP 113/57; PULSE 62; RESP 17; TEMP 97.5; O2SAT 96
[2024-05-13 10:26] LABS: Basophils # (auto) 0 10 ^3/uL (0-0.2); Basophils % (auto) 0.4 % (0.0-2.0); Eosinophils # (auto) 0.1 10 ^3/uL (0-0.8); Eosinophils % (auto) 0.9 % (0.0-7.0); Hematocrit 33.2 % (36.0-46.0); Hemoglobin 10.7 g/dL (12.2-16.2); Lymphocytes # (auto) 1.2 10 ^3/uL (0.4-5.4); Lymphocytes % (auto) 15.8 % (10.0-50.0); Mean Corpuscular Hemoglobin 33.6 pg (28.0-32.0); Mean Corpuscular Hgb Conc. 32.2 g/dL (32.0-36.0); Mean Corpuscular Volume 104.3 fL (80.0-100.0); Monocytes # (auto) 0.6 10 ^3/uL (0-1.3); Monocytes % (auto) 7.2 % (0.0-12.0); Neutrophils # (auto) 5.9 10 ^3/uL (1.6-8.6); Neutrophils % (auto) 75.7 % (37.0-80.0); Platelet Count (auto) 329 10^3/uL (140-450); Red Blood Cells 3.18 10^6/uL (4.0-5.20); Red Cell Distribution Width 15.2 % (11.8-14.3); White Blood Cell 7.8 10^3/uL (4.4-10.8)
[2024-05-13 10:36] LABS: Chloride 102 mmol/L (98-107); Potassium 3.5 mmol/L (3.5-5.1); Sodium 138 mmol/L (136-145)
[2024-05-13 10:37] LABS: Anion Gap 4 (5-15); Calcium 8.9 mg/dL (8.7-10.4); Carbon Dioxide 32 mmol/L (20-31)
[2024-05-13 10:42] LABS: Blood Urea Nitrogen 6 mg/dL (9-23); Glucose 56 mg/dL (74-106)
--- NOTE | 2024-05-13 11:36 | DVHDS2 ---
Discharge Summary Date of Admission May 10, 2024 at 23:01 Date of Discharge: May 13, 2024 Admitting Diagnosis Acute respiratory failure Aspiration pneumonia Leukocytosis, unspecified Generalized weakness Atrial fibrillation Hypertension COPD GERD Hypothyroidism Anemia chronic disease Labs/Diagnostic Data: Laboratory Results Test 05/13/24 10:15 05/11/24 06:55 05/10/24 23:15 05/10/24 19:49 White Blood Count 7.8 10^3/uL (4.4-10.8) Red Blood Count 3.18 10^6/uL (4.0-5.20) Hemoglobin 10.7 g/dL (12.2-16.2) Hematocrit 33.2 % (36.0-46.0) Mean Corpuscular Volume 104.3 fL (80.0-100.0) Mean Corpuscular Hemoglobin 33.6 pg (28.0-32.0) Mean Corpuscular Hemoglobin Concent 32.2 g/dL (32.0-36.0) Red Cell Distribution Width 15.2 % (11.8-14.3) Platelet Count 329 10^3/uL (140-450) Mean Platelet Volume 6.3 fL (6.9-10.8) Neutrophils (%) (Auto) 75.7 % (37.0-80.0) Lymphocytes (%) (Auto) 15.8 % (10.0-50.0) Monocytes (%) (Auto) 7.2 % (0.0-12.0) Eosinophils (%) (Auto) 0.9 % (0.0-7.0) Basophils (%) (Auto) 0.4 % (0.0-2.0) Neutrophils # (Auto) 5.9 10 ^3/uL (1.6-8.6) Lymphocytes # (Auto) 1.2 10 ^3/uL (0.4-5.4) Monocytes # (Auto) 0.6 10 ^3/uL (0-1.3) Eosinophils # (Auto) 0.1 10 ^3/uL (0-0.8) Basophils # (Auto) 0 10 ^3/uL (0-0.2) Nucleated Red Blood Cells 0.0 % Sodium Level 138 mmol/L (136-145) Potassium Level 3.5 mmol/L (3.5-5.1) Chloride Level 102 mmol/L (98-107) Carbon Dioxide Level 32 mmol/L (20-31) Anion Gap 4 (5-15) Blood Urea Nitrogen 6 mg/dL (9-23) Creatinine 0.67 mg/dL (0.550-1.02) Glomerular Filtration Rate Calc 91 mL/min (>90) BUN/Creatinine Ratio 9.0 (10.0-20.0) Serum Glucose 56 mg/dL (74-106) Calcium Level 8.9 mg/dL (8.7-10.4) Total Bilirubin 0.2 mg/dL (0.2-1.0) Aspartate Amino Transferase (AST) 22 U/L (13-40) Alanine Aminotransferase (ALT) 25 U/L (7-40) Alkaline Phosphatase 88 U/L (46-116) Total Protein 6.0 g/dL (5.7-8.2) Albumin 3.9 g/dL (3.2-4.8) Urine Color Dark-yellow (Yellow) Urine Clarity Turbid (Clear) Urine pH 6.0 (5.0-9.0) Urine Specific [place] 1.035 (1.001-1.035) Urine Protein 1+ (Negative) Urine Ketones Trace (Negative) Urine Blood Negative /uL (Negative) Urine Nitrite Negative (Negative) Urine Bilirubin Negative (Negative) Urine Urobilinogen 2 mg/dL (Negative) Urine Leukocyte Esterase Negative /uL (Negative) Urine RBC 1 /hpf (0 - 4) Urine WBC 1 /hpf (0 - 5) Urine Squamous Epithelial Cells Few /hpf (<5) Urine Bacteria None seen /hpf (None Seen) Urine Hyaline Casts Many /lpf (0 - 2) Urine Mucus Few (None Seen) Urine Glucose Normal mg/dL (Normal) Prothrombin Time 10.7 sec (9.3-11.8) Prothrombin Time INR 1.01 (0.9-1.15) Activated Partial Thromboplast Time 25.4 SEC (24.5-34.5) Troponin I High Sensitivity 41 ng/L (</=34) Test 05/10/24 19:44 Lactic Acid Level 1.1 mmol/L (0.4-2.0) Other Laboratory Tests 05/13/24 10:15 Brief Hx & Hospital Course: This is a 78 years old female with past medical history of atrial fibrillation, anemia of chronic disease, COPD, GERD, hypertension, hypothyroidism came to [facility] for shortness for breath. The patient said she was eating a sandwich and started nausea, vomiting, and belching. After that, she become worse. She had severe shortness a breath in come to emergency department for further evaluation. Chest x-ray reviewed patchy interstitial opacity which raised concern of possible aspirin pneumonia versus chronic interstitial disease on the right lower lung zone. Also showed severe compression deformity of the upper lumbar spine vertebral bodies. The patient was admitted. The patient was put on IV antibiotic with Rocephin 1 g IV q.day and Zithromax 500 mg IV q.day. The patient subsequently doing better. The patient is still weak and required physical therapy so he asked social services manager to set up home health for the patient for physical therapy and home safety evaluation. I am going to discharge her home today. Advised her to follow up with primary care physician 1-2 weeks. Follow up with microbiology laboratory manager as outpatient per schedule. Activity as tolerated. Diet per home diet. Physical exam: HEENT: Normocephalic atraumatic pupils equal react to light and accommodation. Extraocular muscles intact, conjunctiva pink, oropharynx moist, no thrush, no exudate. Lymphatic: No lymphadenopathy Cardiovascular exam: S1, S2 was heard. No murmurs, rubs, gallops Lung: Clear on auscultation bilaterally, no wheeze, rale, rhonchi. GI: Abdominal soft, nondistended, nontenderness, positive bowel sounds. Extremity: No crepitus, cyanosis, edema. Pedal pulses present bilateral. Full range of motion. Skin: Normal turgor, no rash. Psych: Alert, oriented x3. Neurology: No focal deficits, cranial nerve II to XII grossly intact. Condition at Discharge: Stable Final Diagnosis/Problems List Acute respiratory failure Aspiration pneumonia Leukocytosis, unspecified Generalized weakness Atrial fibrillation Hypertension COPD GERD Hypothyroidism Anemia chronic disease Discharge Disposition: Home with Health Services Discharge Instruct/Medications Diet: Cardiac 2g Na,low cholest Activity: No Restrictions, As Tolerated Follow Up/Referral: PCP 1-2 weeks Cps Team Lead per schedule Medications: Augmentin 875/125 one tablet twice per day for 10 days Resume home med Discharge Statement: "Patient was advised to return to the ER or call 911 if any headaches, dizziness, shortness of breath, chest pain, abdominal pain, bleeding, fevers, or worsening of medical condition. Patient was counseled about treatment plan, medications, possible side effects, patientverbalized understanding. All questions were answered to the best of my ability. This discharge took greater then 30 minutes in planning, reviewing documentation, counseling the patient, and discussing with other team members." ASSESSMENT ASSESSMENT Assessment Date of Service: May 13, 2024 Billing Provider: ANIL LINARES MD Common Visit Codes: 99931-VGG/OBS DISCH DAY >30min ANIL LINARES MD May 13, 2024 11:36
[2024-05-13] MEDS ORDERED: AZIT-185 PO (11:39)
[2024-05-13] MEDS ORDERED: AUG875T PO (11:41)
[2024-05-13 13:57] VITALS: BP 123/63; PULSE 75; RESP 18; TEMP 98.3
== END 2024-05-13 14:37 | disposition home health service (06) | DRG 177 ==
LOC: ER 19:05 → OVERFLOW 23:01 → WEST WING 05-11 16:45
PROVIDERS: ADMIT Nurse Practitioner Family; ATTEND Internal Medicine
DX: J69.0 Pneumonitis due to inhalation of food and vomit (principal); J96.00 Acute respiratory failure, unspecified whether with hypoxia or hypercapnia; I10 Essential (primary) hypertension; D72.829 Elevated white blood cell count, unspecified; K21.9 Gastro-esophageal reflux disease without esophagitis; D63.8 Anemia in other chronic diseases classified elsewhere; J44.9 Chronic obstructive pulmonary disease, unspecified; I48.91 Unspecified atrial fibrillation; Z90.49 Acquired absence of other specified parts of digestive tract; Z82.0 Family history of epilepsy and other diseases of the nervous system; Z80.0 Family history of malignant neoplasm of digestive organs; Z79.899 Other long term (current) drug therapy
CPT/HCPCS: 36415; 71046; 74176; 80048; 80053; 81001; 82962; 83605; 84484; 85025; 85610; 85730; 87040; 96365; 96367; 97163; 99291; G0378; J2405; J2470; Q0162

== ENCOUNTER 2024-06-27 17:22 | Inpatient (IN) | payer BC, MEDICAID ==
[~2024-06-27] VITALS: Ht 167.6 cm; Wt 57.7 kg
[~2024-06-27 17:22] MED LIST changes: +APIX2.5T PO; +AUG875T PO; +BUPR1DIS TD; -DOXY1CAP58 PO; +HYDR25TA4 PO; +HYDR25TA88 PO; -LEVO-848 PO; +LEVO25TA6 PO; +LORA-1121 PO; -MET25T PO; +METO25TA93 PO; +MIDO10TA10 PO; +MULT-1018 PO; +OMEP20TA PO; -PANT40T PO; +PANT40TA2 PO; +PERCOT PO; +POTA-36 PO
--- NOTE | 2024-06-27 18:06 | ED.PDOC ---
SOB-HPI HPI Comments HPI: Poor Historian. 78-year-old female accompanied by her son at bedside. Patient is here for multiple complaints some of which are acute on chronic. Patient has history of COPD oxygen dependent at home in his here complaining of some shortness of breath. Her son noticed that she is weaker today and not acting herself and so mewhat dizzy. Patient is currently on some type of antibiotics for pneumonia that she is not certain of. Past Medcial History: Past Surgical History: REVIEW OF SYSTEMS: CONSTITUTIONAL: Denies acute: fever, diaphoresis, chills, HEAD: Denies acute: headache, photophobia Eyes: Denies acute: Double vision, vision loss, eye pain, eye discharge. EARS: Denies acute: tinnitus, hearing loss, ear discharge, ear pain, THROAT: Denies acute: sore throat, swelling, difficulty swallowing , pain with swall owing, change in voice. NECK: Denies acute: neck pain, neck swelling, stiff neck. HEART: Denies acute : chest pain, palpitations, LUNGS: Denies acute: wheezing, hemoptysis ABDOMEN: Denies acute: abdominal pain, Nausea, Vomiting, diarrhea, melena , hematemesis, hematochezia SKIN: Denies acute: rash, redness, lesions, itchiness. EXTREMITIES: Denies acute: calf pain, numbness, tingling, weakness, denies pain in extremity. Denies acute: Low back pain. Neuro: Denies acute: focal neurological deficit, motor or sensory focal neurological deficit, tremors, seizure like activity, confusion, change in mental status, loss of bowel or bladder function, cauda equina like symptoms. : Denies acute: dysuria, hematuria, flank pain, increase in urinary frequency. PSYCH: Denies acute: hallucination, suicidal ideation, homicidal ideation. FEMALE: Denies acute: abnormal vaginal bleeding, foul odor, unusual discharge. PHYSICAL EXAM: General: no acute distress, awake and alert. Head: normocephalic, atraumatic. Neck: supple, trachea is midline, no swelling. Throat: Normal phonation. Eyes:, no erythema, no purulent discharge, no proptosis, no icterus. Heart: regular rate, regular rhythm, no significant murmur appreciated. Lungs: no apparent respiratory distress, Able to speak in full sentences. No wheezing, no rhonchi, no crackles. No stridors Clear to auscultation bilaterally. Abdomen: non tender to palpation, non distended, soft, no guarding, no rebound, + bowel sounds. Neuro: Awake, Alert, oriented to name, self, situation, follows commands GCS=15. Speech is normal. Skin: no petechia, no purpura, no cyanosis, non-pale, not jaundice. Lower extremities: --trace - Pitting edema no deformity, no focal swelling, no calf TTP. Makes eye contact. moves all four extremities. Face: no apparent facial droop. Time Seen by MD: 17:26 Primary Care Provider: RADHAMES Nayak notes: Nurses Notes, Allergies Information Source: Patient, Relative Past Medical History PAST MEDICAL HISTORY: AFIB, Anemia, COPD, GERD, HTN, Thyroid Surgical History: Cholecystectomy, Hernia Repair, Tonsillectomy FASHION MODEL History: Denies all FASHION MODEL Hx Family History Family History: Reviewed,noncontributory to illness, Family hx of heart sigrid Social History Smoker: Non-Smoker, Quit Greater Than 1 Year Alcohol: Denies ETOH Use Drugs: Denies Drug Use Lives In: Home X-Ray, Labs, Meds, VS Vital Signs Date Time Temp Pulse Resp B/P (MAP) Pulse Ox O2 Delivery O2 Flow Rate FiO2 06/27/24 21:46 70 20 94 Nasal Cannula 2.5 06/27/24 21:46 97.8 70 20 118/72 (87) 94 97.8 06/27/24 18:33 18 91 Room Air* 0 21 06/27/24 18:13 28 86 Room Air* 0 21 06/27/24 18:10 70 06/27/24 17:40 97.6 86 28 111/73 (86) 74 Lab Test 06/27/24 21:22 06/27/24 19:16 06/27/24 18:21 Range/Units Magnesium Level 1.1 L 1.0 L 1.6-2.6 mg/dL Troponin I High Sensitivity 9 10 9 </=34 ng/L White Blood Count 23.0 H 4.4-10.8 10^3/uL Red Blood Count 3.36 L 4.0-5.20 10^6/uL Hemoglobin 11.5 L 12.2-16.2 g/dL Hematocrit 35.2 L 36.0-46.0 % Mean Corpuscular Volume 105.0 H 80.0-100.0 fL Mean Corpuscular Hemoglobin 34.3 H 28.0-32.0 pg Mean Corpuscular Hemoglobin Concent 32.6 32.0-36.0 g/dL Red Cell Distribution Width 15.5 H 11.8-14.3 % Platelet Count 552 H 140-450 10^3/uL Mean Platelet Volume 7.2 6.9-10.8 fL Neutrophils (%) (Auto) 94.0 H 37.0-80.0 % Lymphocytes (%) (Auto) 2.8 L 10.0-50.0 % Monocytes (%) (Auto) 3.0 0.0-12.0 % Eosinophils (%) (Auto) 0.0 0.0-7.0 % Basophils (%) (Auto) 0.2 0.0-2.0 % Neutrophils # (Auto) 21.6 H 1.6-8.6 10 ^3/uL Lymphocytes # (Auto) 0.6 0.4-5.4 10 ^3/uL Monocytes # (Auto) 0.7 0-1.3 10 ^3/uL Eosinophils # (Auto) 0 0-0.8 10 ^3/uL Basophils # (Auto) 0 0-0.2 10 ^3/uL Nucleated Red Blood Cells 0.1 % Sodium Level 131 L 136-145 mmol/L Potassium Level 3.2 L 3.5-5.1 mmol/L Chloride Level 97 L 98-107 mmol/L Carbon Dioxide Level 26 20-31 mmol/L Anion Gap 8 5-15 Blood Urea Nitrogen 13 9-23 mg/dL Creatinine 0.70 0.550-1.02 mg/dL Glomerular Filtration Rate Calc 90 >90 mL/min BUN/Creatinine Ratio 18.6 10.0-20.0 Serum Glucose 103 74-106 mg/dL Lactic Acid Level 1.6 0.4-2.0 mmol/L Calcium Level 9.4 8.7-10.4 mg/dL Total Bilirubin 0.2 0.2-1.0 mg/dL Aspartate Amino Transferase (AST) 21 13-40 U/L Alanine Aminotransferase (ALT) 11 7-40 U/L Alkaline Phosphatase 128 H 46-116 U/L Creatine Kinase 28 L 34-145 U/L B-Type Natriuretic Peptide 201.45 0-100 pg/mL Total Protein 6.3 5.7-8.2 g/dL Albumin 3.4 3.2-4.8 g/dL Current Medications Medications (Trade) Dose Ordered Sig/Fabi Route Start Time Stop Time Status Last Admin Ipratropium [place] (Atrovent Medneb) 1 mg ONCE ONCE NEB 06/27/24 18:15 06/27/24 18:16 DC 06/27/24 18:33 Albuterol (Ventolin Medneb) 2.5 mg ONCE ONCE NEB 06/27/24 18:15 06/27/24 18:16 DC 06/27/24 18:33 Methylprednisolone Sodium Succinate (Solu Medrol) 125 mg ONCE ONCE IV 06/27/24 18:15 06/27/24 18:16 DC 06/27/24 18:52 Piperacillin Sod/ Tazobactam Sod 100 ml @ 100 mls/hr ONCE ONCE IV 06/27/24 21:00 06/27/24 21:59 DC 06/27/24 21:31 Magnesium Oxide (Mag-Ox Tablet) 800 mg ONCE ONCE PO 06/27/24 21:00 06/27/24 21:02 DC 06/27/24 21:32 Ondansetron HCl (Zofran) 4 mg ONCE ONCE IV 06/27/24 21:20 06/27/24 21:22 DC 06/27/24 21:31 CHEST RADIOGRAPH Indication: sob Technique: Single frontal view of the chest was obtained Comparison: XY CHEST PORTABLE on DOS: 04/17/24, XY CHEST PORTABLE on DOS: 04/14/24, XY CHEST PORTABLE on DOS: 03/12/24 Findings/ IMPRESSION: Right lower lung zone patchy opacification concerning for developing airspace disease. no pneumothorax. Departure 1 Departure Time of Disposition: 20:47 Impression: Primary Impression: Right lower lobe pneumonia Additional Impressions: Leukocytosis Hypomagnesemia Disposition: ADMITTED INPATIENT Admit to: Tele Condition: Guarded Discharged With: Self I personally scribed for SARATH CONN DO ([email or web address]) on 06/28/24 at 00:53. Electronically submitted by Jaguar Yanes ([email or web address]). SARATH CONN DO Jun 27, 2024 18:06
[2024-06-27] MEDS: IPRATROPIUM BROM 0.5 MG/2.5ML INH SOL NEB ONE (18:33)
[2024-06-27] MEDS: ALBUTEROL SULF 2.5 MG/0.5ML(0.5%) NEB SOLN NEB ONE (18:33)
--- NOTE | 2024-06-27 18:47 | DVH ---
CHEST RADIOGRAPH Indication: sob Technique: Single frontal view of the chest was obtained Comparison: XY CHEST PORTABLE on DOS: 04/17/24, XY CHEST PORTABLE on DOS: 04/14/24, XY CHEST PORTABLE on DOS: 03/12/24 Findings/ IMPRESSION: Right lower lung zone patchy opacification concerning for developing airspace disease. no pneumothora x.
[2024-06-27] MEDS: methylPREDNISolone SOD SUCC 125 MG/2 ML VL IV ONE (18:52)
[2024-06-27 19:14] LABS: Basophils # (auto) 0 10 ^3/uL (0-0.2); Basophils % (auto) 0.2 % (0.0-2.0); Eosinophils # (auto) 0 10 ^3/uL (0-0.8); Hematocrit 35.2 % (36.0-46.0); Hemoglobin 11.5 g/dL (12.2-16.2); Lymphocytes # (auto) 0.6 10 ^3/uL (0.4-5.4); Lymphocytes % (auto) 2.8 % (10.0-50.0); Mean Corpuscular Hemoglobin 34.3 pg (28.0-32.0); Mean Corpuscular Hgb Conc. 32.6 g/dL (32.0-36.0); Monocytes # (auto) 0.7 10 ^3/uL (0-1.3); Neutrophils # (auto) 21.6 10 ^3/uL (1.6-8.6); Nucleated Red Blood Cells % 0.1 %; Platelet Count (auto) 552 10^3/uL (140-450); Red Blood Cells 3.36 10^6/uL (4.0-5.20); Red Cell Distribution Width 15.5 % (11.8-14.3)
[2024-06-27 19:30] LABS: Alanine Aminotransferase 11 U/L (7-40); Albumin 3.4 g/dL (3.2-4.8); Anion Gap 8 (5-15); Aspartate Aminotransferase 21 U/L (13-40); BUN/Creatinine Ratio 18.6 (10.0-20.0); Blood Urea Nitrogen 13 mg/dL (9-23); Calcium 9.4 mg/dL (8.7-10.4); Carbon Dioxide 26 mmol/L (20-31); Glucose 103 mg/dL (74-106)
[2024-06-27 19:31] LABS: Total Protein 6.3 g/dL (5.7-8.2)
[2024-06-27 19:34] LABS: Alkaline Phosphatase 128 U/L (46-116); Bilirubin, Total 0.2 mg/dL (0.2-1.0); Chloride 97 mmol/L (98-107); Creatine Kinase IFCC 28 U/L (34-145); Potassium 3.2 mmol/L (3.5-5.1); Sodium 131 mmol/L (136-145)
[2024-06-27] MEDS: MAGNESIUM SULFATE 1GM/100ML 100 ML IV ONE (21:00)
[2024-06-27] MEDS: PIPERACILLIN-TAZOB 3.375GM 100 ML IV ONE (21:31)
[2024-06-27] MEDS: ONDANSETRON HCL 4 MG/2 ML VIAL IV ONE (21:31)
[2024-06-27] MEDS: MAGNESIUM OXIDE 400 MG TAB PO ONE (21:32)
[2024-06-27] MEDS ORDERED: VANCOMYCIN PER PHARMACY 0 MG IV SCH (23:00)
[2024-06-27] MEDS ORDERED: DOCUSATE SOD 100 MG CAP PO PRN (23:00)
--- NOTE | 2024-06-27 23:03 | DVHHPRES ---
History of Present Illness Resident Creating Document: KISHA CORONA RESIDENT History of Present Illness This is a 78-year-old female with a past medical history of hypertension, COPD on home oxygen 2.5 L, hyperlipidemia, atrial fibrillation, peptic ulcer disease, chronic back pain presented to the ED with a chief complaint of shortness of breath and productive cough with yellowish brown sputum for last 2 weeks prior to this admission. The patient states that she was admitted in the [facility] on week of with a diagnosis of pneumonia and after discharge from the hospital her symptoms never resolved and was getting worse that prompted this visit. Patient also mentioned had an EGD on and revealed large nonhealing ulcer in antrum with [id number] gastritis and postbulbar duodenal stricture and she is on Protonix 40 mg p.o. daily and sucralfate 1 g q.i.d. Patient denies fever, chills, chest pain, dizziness, diaphoresis, abdominal pain, nausea, vomiting, dysuria, hematuria or any change in bowel and bladder movement. Past Medical History Hypertension, atrial fibrillation, COPD, chronic back pain due to broken back and scoliosis Past Surgical History Cholecystectomy, hernia repair Family History None Past Social History Lives with family Remote smoking history, quit 3 years ago, nonalcoholic and never tried any drugs. Review of Systems Constitutional: No: Fever, Chills, Sweats, Weakness, Malaise, Other Eyes: No: Pain, Vision change, Conjunctivae inflammation, Eyelid inflammation, Other, Redness ENT: No: Ear pain, Ear discharge, Nose pain, Nose discharge, Nose congestion, Mouth pain, Mouth swelling, Throat pain, Throat swelling, Other Respiratory: Cough, Shortness of breath, Sputum; No: Dry, SOB with excertion, Wheezing, Hemoptysis, Pleuritic Pain, Wheezing, Other Cardiovascular: No: Chest Pain, Palpitations, Orthopnea, Paroxysmal Noc. Dyspnea, Edema, Lt Headedness, Other Gastrointestinal: No: Nausea, Vomiting, Abdominal Pain, Diarrhea, Constipation, Melena, Hematochezia, Other Genitourinary: No Dysuria, No Frequency, No Incontinence, No Hematuria, No Retention, No Other Musculoskeletal: No: other, neck pain, shoulder pain, arm pain, back pain, hand pain, leg pain, foot pain Skin: No: Rash, Lesions, Jaundice, Bruising, Other Neurological: No: Weakness, Numbness, Incoordination, Change in speech, Confusion, Seizures, Other Allergies: Coded Allergies: NO KNOWN ALLERGIES (Unverified , 09/24/22) Medications Current Medications Medications Dose Ordered Sig/Fabi Route Start Time Stop Time Status Last Admin Dose Admin Vancomycin HCl 0 ml @ 0 mls/hr UD IV 06/27/24 23:00 UNV Piperacillin Sod/ Tazobactam Sod 100 ml @ 100 mls/hr TID IV 06/28/24 06:00 UNV Albuterol 2.5 mg Q4HR NEB 06/28/24 02:00 UNV Ipratropium [place] 0.5 mg Q4HR NEB 06/28/24 02:00 UNV Methylprednisolone Sodium Succinate 40 mg BID IV 06/28/24 10:00 UNV Pantoprazole Sodium 40 mg DAILY PO 06/28/24 10:00 UNV Sucralfate 1 gm BID PO 06/28/24 10:00 UNV Exam Vital Signs Vital Signs Date Time Temp Pulse Resp B/P (MAP) Pulse Ox O2 Delivery O2 Flow Rate FiO2 06/27/24 21:46 70 20 94 Nasal Cannula 2.5 06/27/24 21:46 97.8 118/72 (87) 97.8 06/27/24 18:33 21 Exam Physical examination: General Appearance: Alert, Oriented X3, Cooperative, mild distress HEENT: Atraumatic, PERRLA, EOMI, Mucous membrane moist/pink Respiratory: Basal crackles on the rt side, scattered wheezes bilaterally. Cardiovascular: Regular rate, Normal S1, Normal S2, No murmurs, no chest wall tenderness Abdominal: Normal bowel sounds, Soft, No tenderness, No hepatospenomegaly, No masses Extremities: No clubbing, No cyanosis, No edema, Normal pulses, No tenderness/swelling Skin: No rashes, No breakdown, No significant lesion Neuro: Use walker, Normal speech, Strength at 5/5 X4 ext, Normal tone, Sensation intact, grossly intact cranial nerves. Psych/Mental Status: Mental status NL, Mood NL Labs/Xrays Labs Test 06/27/24 21:22 06/27/24 18:21 Range/Units Troponin I High Sensitivity 9 </=34 ng/L White Blood Count 23.0 H 4.4-10.8 10^3/uL Red Blood Count 3.36 L 4.0-5.20 10^6/uL Hemoglobin 11.5 L 12.2-16.2 g/dL Hematocrit 35.2 L 36.0-46.0 % Mean Corpuscular Volume 105.0 H 80.0-100.0 fL Mean Corpuscular Hemoglobin 34.3 H 28.0-32.0 pg Mean Corpuscular Hemoglobin Concent 32.6 32.0-36.0 g/dL Red Cell Distribution Width 15.5 H 11.8-14.3 % Platelet Count 552 H 140-450 10^3/uL Mean Platelet Volume 7.2 6.9-10.8 fL Neutrophils (%) (Auto) 94.0 H 37.0-80.0 % Lymphocytes (%) (Auto) 2.8 L 10.0-50.0 % Monocytes (%) (Auto) 3.0 0.0-12.0 % Eosinophils (%) (Auto) 0.0 0.0-7.0 % Basophils (%) (Auto) 0.2 0.0-2.0 % Neutrophils # (Auto) 21.6 H 1.6-8.6 10 ^3/uL Lymphocytes # (Auto) 0.6 0.4-5.4 10 ^3/uL Monocytes # (Auto) 0.7 0-1.3 10 ^3/uL Eosinophils # (Auto) 0 0-0.8 10 ^3/uL Basophils # (Auto) 0 0-0.2 10 ^3/uL Nucleated Red Blood Cells 0.1 % Sodium Level 131 L 136-145 mmol/L Potassium Level 3.2 L 3.5-5.1 mmol/L Chloride Level 97 L 98-107 mmol/L Carbon Dioxide Level 26 20-31 mmol/L Anion Gap 8 5-15 Blood Urea Nitrogen 13 9-23 mg/dL Creatinine 0.70 0.550-1.02 mg/dL Glomerular Filtration Rate Calc 90 >90 mL/min BUN/Creatinine Ratio 18.6 10.0-20.0 Serum Glucose 103 74-106 mg/dL Lactic Acid Level 1.6 0.4-2.0 mmol/L Calcium Level 9.4 8.7-10.4 mg/dL Magnesium Level 1.0 L 1.6-2.6 mg/dL Total Bilirubin 0.2 0.2-1.0 mg/dL Aspartate Amino Transferase (AST) 21 13-40 U/L Alanine Aminotransferase (ALT) 11 7-40 U/L Alkaline Phosphatase 128 H 46-116 U/L Creatine Kinase 28 L 34-145 U/L B-Type Natriuretic Peptide 201.45 0-100 pg/mL Total Protein 6.3 5.7-8.2 g/dL Albumin 3.4 3.2-4.8 g/dL Assessment/Plan Assessment/Plan Assessment and plan: # Possible aspiration pneumonia - Chest xray revealed right lower lung zone patchy opacification. - Ordered sputum C/S - IV vancomycin as per pharmacy and IV Zosyn 3.375 mg t.i.d. # Acute exacerbation of chronic COPD - DuoNeb with albuterol and ipratropium q.4 hours - IV methylprednisolone 40 mg b.i.d. # Hypokalemia - Replenished # Hypomagnesemia - IV magnesium 2 g once - Magnesium oxide 400 mg p.o. b.i.d. - Monitor magnesium # Paroxysmal atrial fibrillation with secondary hypercoagulable state [id number] score 4 - Continue amiodarone 200 mg p.o. b.i.d. and Eliquis 2.5 mg b.i.d. # Peptic ulcer disease - EGD on 04/11 revealed large nonhealing ulcer in antrum with [id number] gastritis and postbulbar duodenal stricture. - Protonix 40 mg p.o. daily and sucralfate 1 g b.i.d. # Hypertensive heart disease - Hydrochlorothiazide 25 mg p.o. daily # History of hypothyroidism - Levothyroxine 25 mcg p.o. q.a.m. # Chronic back pain - Percocet 5/325 mg 2 tab q.i.d. daily # DVT prophylaxis - Pt is on eliquis Goal of care discussed with the patient for more than 20 minutes full code Plan discussed with Dr. Villalobos Plan discussed with: Patient, Other My Orders Orders - KISHA CORONA RESIDENT Procedure Category Date Status Time Admit ADMIT 06/27/24 Transmitted 22:42 Magnesium LAB 06/27/24 Logged 23:30 Potassium Effervesent PHA 06/27/24 Logged Tab (Klor-Con/Ef) 23:00 Vancomycin Per PHA 06/27/24 Logged Pharmacy 23:00 Piperacillin-Tazob PHA 06/28/24 Logged 3.375gm (Zosyn 3.375g 06:00 Albuterol Medneb PHA 06/28/24 Logged (Ventolin Medneb) 02:00 Ipratropium Medneb PHA 06/28/24 Logged (Atrovent Medneb) 02:00 Methylprednisolone PHA 06/28/24 Logged Sod Succ (Solu Medrol 10:00 Pantoprazole Tablet PHA 06/28/24 Logged (Protonix Tablet) 10:00 Sucralfate Susp PHA 06/28/24 Logged (Carafate Susp) 10:00 Amiodarone Tablet PHA 06/28/24 Transmitted (Cordarone Tablet) 10:00 Apixaban (Eliquis) PHA 06/28/24 Transmitted 10:00 Docusate Sodium PHA 06/27/24 Transmitted Capsule (Colace 23:00 Hydrochlorothiazide PHA 06/28/24 Transmitted Tablet (Hydrochlorot 10:00 Levothyroxine Tablet PHA 06/28/24 Transmitted (Synthroid Tablet) 07:00 Oxycodone W/ Acet PHA 06/28/24 Transmitted 5/325mg Tab (Percocet 06:00 Date of Service: Jun 27, 2024 Billing Provider: SEAMUS VILLALOBOS MD Common Visit Codes: 62149-SCQFGHW INP/OBS CARE (HIGH) Secondary Visit Codes: 01795-[id number] CARE PLAN 30 MINUTES KISHA CORONA RESIDENT Jun 27, 2024 23:03 SEAMUS VILLALOBOS MD Jun 28, 2024 20:49
[2024-06-28] VITALS (26 sets, daily range): BP systolic 91–116; BP diastolic 48–59; PULSE 63–90; RESP 16–18; TEMP 97.4–98; O2SAT 92–99
[2024-06-28] MEDS: HYDROcodone-ACET 5/325MG TAB PO ONE (00:23)
[2024-06-28 00:41] LABS: Urine Bacteria None Seen /hpf (None Seen)
[2024-06-28] MEDS: POTASSIUM EFFERVESENT TAB 25 MEQ PO ONE (00:45)
[2024-06-28] MEDS: VANCOMYCIN 1GM/250ML KIT 250 ML IV ONE (00:53)
[2024-06-28 01:22] LABS: Urine Blood Negative /uL (Negative); Urine Budding Yeast OCCASIONAL /hpf (None Seen); Urine Clarity Clear (Clear); Urine Color Yellow (Yellow); Urine Hyaline Cast FEW /lpf (0 - 2); Urine Mucus FEW (None Seen); Urine Protein, UAD 1+ (Negative); Urine Specific Gravity 1.034 (1.001-1.035); Urine Squamous Epithelial Cell FEW /hpf (<5); Urine Urobilinogen Normal (Negative); Urine WBC 7 /hpf (0 - 5)
[2024-06-28 02:59] LABS: COVID19 ANTIGEN SOFIA FIA NEGATIVE (NEGATIVE); Rapid Influenza A Negative (Negative); Rapid Influenza B Negative (Negative)
[2024-06-28] MEDS: ALBUTEROL SULF 2.5 MG/0.5ML(0.5%) NEB SOLN NEB SCH (03:47)
[2024-06-28] MEDS: IPRATROPIUM BROM 0.5 MG/2.5ML INH SOL NEB SCH (03:48)
[2024-06-28] MEDS: MAGNESIUM SULFATE 1GM/100ML 100 ML IV SCH (04:00)
[2024-06-28] MEDS: MORPHINE SULFATE INJ 2 MG/ml SYRG IV ONE (04:30)
[2024-06-28] MEDS ORDERED: PIPERACILLIN-TAZOB 3.375GM 100 ML IV SCH (06:00)
[2024-06-28] MEDS: OXYCODONE W/ ACETAMINOPHEN 5/325MG TABLET PO SCH (06:01)
[2024-06-28] MEDS: LEVOTHYROXINE SODIUM 25 MCG TAB PO SCH (06:57)
[2024-06-28 07:44] LABS: Anion Gap 7 (5-15); Carbon Dioxide 29 mmol/L (20-31)
[2024-06-28 07:46] LABS: Calcium 9.4 mg/dL (8.7-10.4)
--- NOTE | 2024-06-28 07:47 | ECG ---
[facility] Test Date: 2024-06-27 Test Time: 18:10:40 Pat Name: MILES TOWNSEND [facility] Gender: [employer] Sales Executive: DEANNE : 1945 Requested By: SARATH CONN Order Number: [id number] Reading MD: Alberto Ruff Measurements Intervals [place] Rate: 70 P: 68 MN: 156 QRS: 42 QRSD: 125 T: 28 QT: 430 QTc: 464 Interpretive Statements Sinus rhythm Nonspecific intraventricular conduction delay Minimal ST depression, inferior leads Electronically Signed On 06-28-2024 13:13:08 PST by Alberto Ruff Please click the below link to view image of tracing.
[2024-06-28 07:49] LABS: Chloride 96 mmol/L (98-107); Potassium 3.5 mmol/L (3.5-5.1); Sodium 132 mmol/L (136-145)
[2024-06-28 07:50] LABS: BUN/Creatinine Ratio 20.8 (10.0-20.0); Blood Urea Nitrogen 16 mg/dL (9-23)
[2024-06-28 07:51] LABS: Glucose 148 mg/dL (74-106)
[2024-06-28] MEDS: SUCRALFATE 1 GM/10 ML ORAL SUSP PO SCH (09:23)
[2024-06-28] MEDS: PIPERACILLIN-TAZOB 3.375GM 100 ML IV SCH (09:23)
[2024-06-28] MEDS: methylPREDNISolone SOD SUCC 40 MG/ML VL IV SCH (09:23)
[2024-06-28] MEDS: AMIODARONE HCL 200 MG TAB PO SCH (09:24)
[2024-06-28] MEDS: PANTOPRAZOLE 40 MG TAB PO SCH (09:24)
[2024-06-28] MEDS: MAGNESIUM OXIDE 400 MG TAB PO SCH (09:24)
[2024-06-28] MEDS: hydroCHLOROthiazide 25 MG TAB PO SCH (09:27)
--- NOTE | 2024-06-28 12:18 | DVHPN2 ---
Subjective Patient cotniues to have cough. No significant /n events. Reviewed: H&P Changes from previous H/P or p: No Changes Eyes: No Pain, No Vision change, No Conjunctivae inflammation, No Eyelid inflammation, No Other, No Redness ENT: No Ear pain, No Ear discharge, No Nose pain, No Nose discharge, No Nose congestion, No Mouth pain, No Mouth swelling, No Throat pain, No Throat swelling, No Other Cardiovascular: No Chest Pain, No Palpitations, No Orthopnea, No Paroxysmal Noc. Dyspnea, No Edema, No Lt Headedness, No Other Respiratory: Cough; No Dry; Shortness of breath; No SOB with excertion, No Wheezing, No Hemoptysis, No Pleuritic Pain; Sputum; No Other Gastrointestinal: No Nausea, No Vomiting, No Abdominal Pain, No Diarrhea, No Constipation, No Melena, No Hematochezia, No Other Genitourinary: No Dysuria, No Frequency, No Incontinence, No Hematuria, No Retention, No Other Musculoskeletal: No other, No neck pain, No shoulder pain, No arm pain, No back pain, No hand pain, No leg pain, No foot pain Skin: No Rash, No Lesions, No Jaundice, No Bruising, No Other Objective Vitals Vital Signs Date Time Temp Pulse Resp B/P (MAP) Pulse Ox O2 Delivery O2 Flow Rate FiO2 06/28/24 10:53 83 18 93 06/28/24 10:00 Nasal Cannula* 2 28 06/28/24 09:27 99/74 06/28/24 09:00 97.4 97.4 General Appearance: Alert, Oriented X3, Cooperative, mild distress HEENT: Atraumatic, PERRLA Lungs: Other (poor air movement , rhonci noted. ) Cardiovascular: Regular rate, Normal S1, Normal S2 Abdomen: Normal bowel sounds Neuro: Normal speech Psych/Mental Status: Mental status NL, Mood NL Medications Current Medications Medications Dose Ordered Sig/Fabi Route Start Time Stop Time Status Last Admin Dose Admin Vancomycin HCl 0 ml @ 0 mls/hr UD IV 06/27/24 23:00 Albuterol 2.5 mg Q4HR NEB 06/28/24 02:00 06/28/24 10:47 2.5 MG Ipratropium [place] 0.5 mg Q4HR NEB 06/28/24 02:00 06/28/24 10:47 0.5 MG Methylprednisolone Sodium Succinate 40 mg BID IV 06/28/24 10:00 06/28/24 09:23 40 MG Pantoprazole Sodium 40 mg DAILY PO 06/28/24 10:00 06/28/24 09:24 40 MG Sucralfate 1 gm BID PO 06/28/24 10:00 06/28/24 09:23 1 GM Amiodarone HCl 200 mg DAILY PO 06/28/24 10:00 06/28/24 09:24 200 MG Apixaban 2.5 mg BID PO 06/28/24 10:00 Docusate Sodium 100 mg BID PRN PO 06/27/24 23:00 Hydrochlorothiazide 25 mg DAILY PO 06/28/24 10:00 06/28/24 09:27 25 MG Levothyroxine Sodium 25 mcg QAM PO 06/28/24 07:00 06/28/24 06:57 25 MCG Oxycodone/ Acetaminophen 2 tab QID PO 06/28/24 06:00 06/28/24 06:01 2 TAB Magnesium Oxide 400 mg BID PO 06/28/24 10:00 06/28/24 09:24 400 MG Piperacillin Sod/ Tazobactam Sod 100 ml @ 100 mls/hr Q8H IV 06/28/24 08:00 06/28/24 09:23 100 MLS/HR Vancomycin HCl 750 mg/Dextrose 100 ml @ 100 mls/hr Q14H IV 06/28/24 15:00 Laboratory Results Laboratory Tests 06/27/24 18:21 06/28/24 05:01 Chemistry Test 06/27/24 18:21 06/27/24 21:22 06/28/24 05:01 Albumin 3.4 g/dL (3.2-4.8) Calcium Level 9.4 mg/dL (8.7-10.4) 9.4 mg/dL (8.7-10.4) Magnesium Level 1.0 mg/dL (1.6-2.6) L 1.1 mg/dL (1.6-2.6) L Total Protein 6.3 g/dL (5.7-8.2) Cardiac Markers Test 06/27/24 18:21 B-Type Natriuretic Peptide 201.45 pg/mL (0-100) LFT Test 06/27/24 18:21 Alanine Aminotransferase (ALT) 11 U/L (7-40) Alkaline Phosphatase 128 U/L (46-116) H Aspartate Amino Transferase (AST) 21 U/L (13-40) Total Bilirubin 0.2 mg/dL (0.2-1.0) Urinalysis Test 06/28/24 00:41 Urine Color Yellow (Yellow) Urine Clarity Clear (Clear) Urine pH 6.0 (5.0-9.0) Urine Specific [place] 1.034 (1.001-1.035) Urine Protein 1+ (Negative) H Urine Ketones Negative (Negative) Urine Blood Negative /uL (Negative) Urine Nitrite Negative (Negative) Urine Bilirubin Negative (Negative) Urine Urobilinogen Normal mg/dL (Negative) Urine Leukocyte Esterase 1+ /uL (Negative) Urine RBC 1 /hpf (0 - 4) Urine WBC 7 /hpf (0 - 5) Urine Squamous Epithelial Cells Few /hpf (<5) Urine Bacteria None seen /hpf (None Seen) Urine Hyaline Casts Few /lpf (0 - 2) Urine Mucus Few (None Seen) Urine Yeast (Budding) Occasional /hpf (None Urine Glucose Normal mg/dL (Normal) Assessment/Plan Assessment/Plan #Pneumonia - Possible Aspiration vs viral - CXR in AM - Start on Levaquin to cover - cont steroids. - incentive spirometry - PT eval # Acute exacerbation of chronic COPD - DuoNeb with albuterol and ipratropium q.4 hours - IV methylprednisolone 40 mg b.i.d. # Hypokalemia - imrpoved # Hypomagnesemia - s/p IV magnesium 2 g once - Magnesium oxide 400 mg p.o. b.i.d. - Monitor magnesium # Paroxysmal atrial fibrillation with secondary hypercoagulable state [id number] score 4 - Continue amiodarone 200 mg p.o. b.i.d. and Eliquis 2.5 mg b.i.d. # Peptic ulcer disease - EGD on 04/11 revealed large nonhealing ulcer in antrum with [id number] gastritis and postbulbar duodenal stricture. - Protonix 40 mg p.o. daily and sucralfate 1 g b.i.d. # Hypertensive heart disease - Hydrochlorothiazide 25 mg p.o. daily # History of hypothyroidism - Levothyroxine 25 mcg p.o. q.a.m. # Chronic back pain - Percocet 5/325 mg 2 tab q.i.d. daily # DVT prophylaxis - Pt is on eliquis Plan discussed with: Patient Date of Service: Jun 28, 2024 Billing Provider: IGOR BAILON MD Common Visit Codes: [id number] INP/OBS CARE(HIGH) IGOR BAILON MD Jun 28, 2024 12:18
[2024-06-28] MEDS: APIXABAN 2.5 MG TAB PO SCH (12:21)
[2024-06-28] MEDS: levoFLOXacin 250 MG TAB PO ONE (12:39)
[2024-06-28] MEDS: VANCOMYCIN 750MG VIAL 750 MG in D5W 5% 100 ML IV SCH (15:22)
[2024-06-28] MEDS: ACETAMINOPHEN 500 MG TAB or CAP PO ONE (16:45)
[2024-06-28] MEDS: LORazepam 0.5 MG TAB PO PRN (22:30)
[2024-06-29] VITALS (20 sets, daily range): BP systolic 94–113; BP diastolic 57–77; PULSE 67–96; RESP 14–20; TEMP 97.6–98.4; O2SAT 92–100
[2024-06-29 06:34] LABS: Basophils # (auto) 0 10 ^3/uL (0-0.2); Basophils % (auto) 0.1 % (0.0-2.0); Eosinophils # (auto) 0 10 ^3/uL (0-0.8); Lymphocytes # (auto) 0.3 10 ^3/uL (0.4-5.4); Lymphocytes % (auto) 2.8 % (10.0-50.0); Monocytes # (auto) 0.3 10 ^3/uL (0-1.3)
[2024-06-29 06:37] LABS: Potassium 3.7 mmol/L (3.5-5.1)
[2024-06-29 06:38] LABS: Anion Gap 5 (5-15); Eosinophils % (auto) 0.1 % (0.0-7.0); Hemoglobin 10.4 g/dL (12.2-16.2); Mean Corpuscular Hemoglobin 34.4 pg (28.0-32.0); Mean Corpuscular Hgb Conc. 33.4 g/dL (32.0-36.0); Monocytes % (auto) 3.4 % (0.0-12.0); Neutrophils % (auto) 93.6 % (37.0-80.0); Nucleated Red Blood Cells % 0.1 %; Platelet Count (auto) 516 10^3/uL (140-450); Red Blood Cells 3.01 10^6/uL (4.0-5.20); White Blood Cell 9.6 10^3/uL (4.4-10.8)
[2024-06-29 06:39] LABS: Calcium 9.7 mg/dL (8.7-10.4); Carbon Dioxide 33 mmol/L (20-31); Chloride 97 mmol/L (98-107); Sodium 135 mmol/L (136-145)
[2024-06-29 06:44] LABS: BUN/Creatinine Ratio 12.3 (10.0-20.0)
[2024-06-29 07:11] LABS: Blood Urea Nitrogen 8 mg/dL (9-23); Glucose 110 mg/dL (74-106)
[2024-06-29] MEDS: levoFLOXacin 250 MG TAB PO SCH (09:22)
[2024-06-29] MEDS: LIDOCAINE 5% TOPICAL PATCH TOP ONE (12:14)
[2024-06-29] MEDS: IBUPROFEN 400 MG TAB PO ONE (12:14)
[2024-06-29] MEDS: ACETAMINOPHEN 325 MG TAB PO ONE (12:15)
[2024-06-29] MEDS: oxyCODONE HCL 5MG TAB PO PRN (12:15)
--- NOTE | 2024-06-29 12:33 | MEDREC ---
[facility] Intervention Section I [facility] Intervention: Review courses of therapy (PATIENT IS ON ZOSYN, VANCOMYCIN, AND LEVOFLOXACIN. SHE IS HAVING COPD EXACERBATION AND POSSIBLE HAVING PNEUMONIA - POSSIBLE ASPIRATION. PATIENT IS ALSO TAKING AMIODARONE WHICH CAN INTERACT WITH LEVOFLOXACIN TO PROLONG QT INTERVAL. PLEASE CONSIDER SWITCHING LEVOFLOXACIN TO DOXYCYCLINE A SAFER OPTION FOR PATIENT) JAMES SALGUERO Jun 29, 2024 12:33
[2024-06-29] MEDS: ACETAMINOPHEN 325 MG TAB PO SCH (13:00)
[2024-06-29] MEDS: IBUPROFEN 400 MG TAB PO SCH (13:00)
--- NOTE | 2024-06-29 15:15 | DVHPN2 ---
Subjective improved, complained of chronic pain, CURES reviewed, pain regimen adjusted Reviewed: H&P Changes from previous H/P or p: No Changes Eyes: No Pain, No Vision change, No Conjunctivae inflammation, No Eyelid inflammation, No Other, No Redness ENT: No Ear pain, No Ear discharge, No Nose pain, No Nose discharge, No Nose congestion, No Mouth pain, No Mouth swelling, No Throat pain, No Throat swelling, No Other Cardiovascular: No Chest Pain, No Palpitations, No Orthopnea, No Paroxysmal Noc. Dyspnea, No Edema, No Lt Headedness, No Other Respiratory: Cough; No Dry; Shortness of breath; No SOB with excertion, No Wheezing, No Hemoptysis, No Pleuritic Pain; Sputum; No Other Gastrointestinal: No Nausea, No Vomiting, No Abdominal Pain, No Diarrhea, No Constipation, No Melena, No Hematochezia, No Other Genitourinary: No Dysuria, No Frequency, No Incontinence, No Hematuria, No Retention, No Other Musculoskeletal: No other, No neck pain, No shoulder pain, No arm pain, No back pain, No hand pain, No leg pain, No foot pain Skin: No Rash, No Lesions, No Jaundice, No Bruising, No Other Objective Vitals Vital Signs Date Time Temp Pulse Resp B/P (MAP) Pulse Ox O2 Delivery O2 Flow Rate FiO2 06/29/24 13:44 89 14 98 06/29/24 13:38 Nasal Cannula 2.0 06/29/24 13:38 28 06/29/24 13:00 98.6 06/29/24 12:33 102/77 (85) Intake/Output Intake and Output 06/29/24 07:00 Intake Total 2300 ml Output Total 1000 ml Balance 1300 ml Intake Oral 2200 ml IV Total 100 ml Output Urine Total 1000 ml # Voids 3 General Appearance: Alert, Oriented X3, Cooperative, mild distress HEENT: Atraumatic, PERRLA Lungs: Other (poor air movement , rhonci noted. ) Cardiovascular: Regular rate, Normal S1, Normal S2 Abdomen: Normal bowel sounds Neuro: Normal speech Psych/Mental Status: Mental status NL, Mood NL Medications Current Medications Medications Dose Ordered Sig/Fabi Route Start Time Stop Time Status Last Admin Dose Admin Albuterol 2.5 mg Q4HR NEB 06/28/24 02:00 06/29/24 13:38 2.5 MG Ipratropium [place] 0.5 mg Q4HR NEB 06/28/24 02:00 06/29/24 13:38 0.5 MG Methylprednisolone Sodium Succinate 40 mg BID IV 06/28/24 10:00 06/29/24 09:23 40 MG Pantoprazole Sodium 40 mg DAILY PO 06/28/24 10:00 06/29/24 09:22 40 MG Sucralfate 1 gm BID PO 06/28/24 10:00 06/29/24 09:21 1 GM Amiodarone HCl 200 mg DAILY PO 06/28/24 10:00 06/28/24 09:24 200 MG Apixaban 2.5 mg BID PO 06/28/24 10:00 06/29/24 09:22 2.5 MG Docusate Sodium 100 mg BID PRN PO 06/27/24 23:00 Hydrochlorothiazide 25 mg DAILY PO 06/28/24 10:00 06/28/24 09:27 25 MG Levothyroxine Sodium 25 mcg QAM PO 06/28/24 07:00 06/29/24 06:31 25 MCG Magnesium Oxide 400 mg BID PO 06/28/24 10:00 06/29/24 09:22 400 MG Lorazepam 0.5 mg DAILY PRN PO 06/28/24 20:45 06/28/24 22:30 0.5 MG Acetaminophen 650 mg Q8HR PO 06/29/24 13:00 Ibuprofen 400 mg Q8HP PO 06/29/24 13:00 Oxycodone HCl 10 mg Q6HPRN PRN PO 06/29/24 11:45 06/29/24 12:15 10 MG Lidocaine 1 patch DAILY TOP 06/30/24 10:00 Doxycycline Monohydrate 100 mg BID PO 06/29/24 22:00 Laboratory Results Laboratory Tests 06/29/24 05:45 Chemistry Test 06/29/24 05:45 Calcium Level 9.7 mg/dL (8.7-10.4) Urinalysis Test 06/28/24 00:41 Urine Color Yellow (Yellow) Urine Clarity Clear (Clear) Urine pH 6.0 (5.0-9.0) Urine Specific [place] 1.034 (1.001-1.035) Urine Protein 1+ (Negative) H Urine Ketones Negative (Negative) Urine Blood Negative /uL (Negative) Urine Nitrite Negative (Negative) Urine Bilirubin Negative (Negative) Urine Urobilinogen Normal mg/dL (Negative) Urine Leukocyte Esterase 1+ /uL (Negative) Urine RBC 1 /hpf (0 - 4) Urine WBC 7 /hpf (0 - 5) Urine Squamous Epithelial Cells Few /hpf (<5) Urine Bacteria None seen /hpf (None Seen) Urine Hyaline Casts Few /lpf (0 - 2) Urine Mucus Few (None Seen) Urine Yeast (Budding) Occasional /hpf (None Urine Glucose Normal mg/dL (Normal) Assessment/Plan Assessment/Plan #Pneumonia - Possible Aspiration vs viral - cont steroids. - incentive spirometry - PT eval dc iv abx, start doxy # Acute exacerbation of chronic COPD - DuoNeb with albuterol and ipratropium q.4 hours - IV methylprednisolone 40 mg b.i.d. switch to oral prednisone tomorrow # Hypokalemia - imrpoved # Hypomagnesemia - s/p IV magnesium 2 g once - Magnesium oxide 400 mg p.o. b.i.d. - Monitor magnesium # Paroxysmal atrial fibrillation with secondary hypercoagulable state [id number] score 4 - Continue amiodarone 200 mg p.o. b.i.d. and Eliquis 2.5 mg b.i.d. # Peptic ulcer disease - EGD on 04/11 revealed large nonhealing ulcer in antrum with [id number] gastritis and postbulbar duodenal stricture. - Protonix 40 mg p.o. daily and sucralfate 1 g b.i.d. need outpatient follow up # Hypertensive heart disease - Hydrochlorothiazide 25 mg p.o. daily # History of hypothyroidism - Levothyroxine 25 mcg p.o. q.a.m. # Chronic back pain CURES reviewed, on percocet 10 q6 at home. started on fabi tylenol and motrin, oxy 10 q6 prn and lido patch. pt is using home buprenoorphine patch # DVT prophylaxis - Pt is on eliquis Plan discussed with: Patient My Orders Orders - CORNELIA MARTINEZ MD Procedure Category Date Status Time Acetaminophen Tablet PHA 06/29/24 In Process (Tylenol Tablet) 13:00 Ibuprofen Tablet PHA 06/29/24 In Process (Motrin Tablet) 13:00 Oxycodone Immediate PHA 06/29/24 In Process Rel Tablet 11:45 Lidocaine 5% Topical PHA 06/30/24 In Process Patch (Lidoderm 5% 10:00 Doxycycline Tablet PHA 06/29/24 In Process (Vibramycin Tablet) 22:00 Date of Service: Jun 29, 2024 Billing Provider: CORNELIA MARTINEZ MD Common Visit Codes: [id number] INP/OBS CARE(HIGH) CORNELIA MARTINEZ MD Jun 29, 2024 15:15
[2024-06-29] MEDS: HYDROcodone-ACET 5/325MG TAB PO ONE (17:47)
--- NOTE | 2024-06-29 18:24 | DVH ---
CLINICAL INDICATION: BACK PAIN TECHNIQUE: 3 radiographic views of the lumbar spine were obtained. Comparison: None FINDINGS/IMPRESSION: There is no evidence of acute fracture or dislocation. The visualized joint space is well maintained. Levoscoliosis of the lumbar spine is seen with increased lumbar lordotic curve. Mild compression of T 12 is noted with bony spondylosis and degenerative disc changes throughout the lumbar spine. 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 There is no radiopaque foreign body.
--- NOTE | 2024-06-29 18:29 | DVH ---
INDICATION: BACK PAIN TECHNIQUE: 4 views of the thoracic spine were obtained. COMPARISON: None FINDINGS: There is no evidence of acute fracture, subluxation and/or dislocation. Suggestion of multi ple chronic compression deformities of the lower thoracic spine. Multilevel degenerative changes of the spine. Severe diffuse osteopenia. The alignment is anatomical. The paravertebral soft tissues were unremarkable. IMPRESSION: Diffuse osteopenia limits sensitivity of the examination. Multilevel degenerative changes of the thoracic spine. No definite acute fracture or acute subluxation.
[2024-06-29] MEDS: DOXYCYCLINE 100 MG TAB/CAP PO SCH (21:16)
[2024-06-30] VITALS (18 sets, daily range): BP systolic 100–116; BP diastolic 57–76; PULSE 71–95; RESP 14–61; TEMP 97.4–98.3; O2SAT 91–100
[2024-06-30] MEDS: LIDOCAINE 5% TOPICAL PATCH TOP SCH (10:00)
[2024-06-30] MEDS: ACETAMINOPHEN 325 MG TAB PO ONE (11:55)
[2024-06-30] MEDS ORDERED: PANT40TA2 PO (16:09)
[2024-06-30] MEDS ORDERED: DULO60CA41 PO (16:09)
[2024-06-30] MEDS ORDERED: LEVO500T91 PO (16:10)
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
== END 2024-06-30 18:25 | disposition home or self-care (01) | DRG 190 ==
LOC: ER 17:22 → TELE-WESTW 22:25 → OVERFLOW 22:42 → TELE-WESTW 06-28 02:45
PROVIDERS: ADMIT Family Medicine; ATTEND Family Medicine
DX: J44.0 Chronic obstructive pulmonary disease with (acute) lower respiratory infection (principal); J12.9 Viral pneumonia, unspecified; J69.0 Pneumonitis due to inhalation of food and vomit; D68.69 Other thrombophilia; J44.1 Chronic obstructive pulmonary disease with (acute) exacerbation; I48.0 Paroxysmal atrial fibrillation; E83.42 Hypomagnesemia; K21.9 Gastro-esophageal reflux disease without esophagitis; E03.9 Hypothyroidism, unspecified; G89.29 Other chronic pain; E87.6 Hypokalemia; K27.9 Peptic ulcer, site unspecified, unspecified as acute or chronic, without hemorrhage or perforation; I11.9 Hypertensive heart disease without heart failure; Z90.49 Acquired absence of other specified parts of digestive tract; Z79.899 Other long term (current) drug therapy; Z79.01 Long term (current) use of anticoagulants
CPT/HCPCS: 36415; 71045; 72070; 72100; 80048; 80053; 80202; 81001; 82550; 83605; 83735; 83880; 84484; 85025; 87426; 87804; 93005; 94640; 97110; 97116; 97163; 97530; G0378; J2405; J2543; J7060

== ENCOUNTER 2024-07-02 14:18 | Inpatient (IN) | payer BC, MEDICAID ==
[~2024-07-02] VITALS: Ht 167.6 cm; Wt 59.1 kg
[~2024-07-02 14:18] MED LIST changes: +DULO60CA41 PO; +LEVO500T91 PO
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
--- NOTE | 2024-07-02 15:21 | DVH ---
CLINICAL INFORMATION: 78 years old, Female; shortness of breath. TECHNIQUE: Single AP portable chest radiograph was obtained. COMPARISON: XY CHEST PORTABLE on DOS: 06/27/24, XY CHEST PORTABLE on DOS: 04/17/24, XY CHEST PORTABLE o n DOS: 04/14/24 FINDINGS: Small right pleural effusion overlying airspace consolidations have minimally changed compared to the prior exam. Atelectasis and possible developing consolidation in the left lung base. No pneumothorax . No other significant interval change. IMPRESSION: 1. Similar-appearing small right pleural effusion with overlying airspace consolidations. 2. Atelectasis and possible developing consolidation in the left lung base, new or more conspicuous c ompared to the prior exam.
[2024-07-02 15:36] LABS: Basophils # (auto) 0 10 ^3/uL (0-0.2); Basophils % (auto) 0.1 % (0.0-2.0); Eosinophils # (auto) 0 10 ^3/uL (0-0.8); Lymphocytes # (auto) 0.8 10 ^3/uL (0.4-5.4); Lymphocytes % (auto) 3.3 % (10.0-50.0); Monocytes # (auto) 0.5 10 ^3/uL (0-1.3)
[2024-07-02] MEDS: ALBUTEROL SULF 2.5 MG/0.5ML(0.5%) NEB SOLN NEB ONE (15:36)
[2024-07-02] MEDS: IPRATROPIUM BROM 0.5 MG/2.5ML INH SOL NEB ONE (15:36)
[2024-07-02 15:38] LABS: Eosinophils % (auto) 0.1 % (0.0-7.0); Hematocrit 36.8 % (36.0-46.0); Hemoglobin 12.1 g/dL (12.2-16.2); Mean Corpuscular Hemoglobin 33.5 pg (28.0-32.0); Mean Corpuscular Volume 101.7 fL (80.0-100.0); Monocytes % (auto) 2.3 % (0.0-12.0); Neutrophils # (auto) 22.3 10 ^3/uL (1.6-8.6); Neutrophils % (auto) 94.2 % (37.0-80.0); Platelet Count (auto) 717 10^3/uL (140-450); Red Blood Cells 3.62 10^6/uL (4.0-5.20); White Blood Cell 23.6 10^3/uL (4.4-10.8)
[2024-07-02 15:45] LABS: Potassium 4.3 mmol/L (3.5-5.1)
[2024-07-02 15:46] LABS: Anion Gap 3 (5-15); Calcium 9.3 mg/dL (8.7-10.4)
[2024-07-02 15:51] LABS: BUN/Creatinine Ratio 29.3 (10.0-20.0); Blood Urea Nitrogen 17 mg/dL (9-23); Glucose 81 mg/dL (74-106)
[2024-07-02 16:03] LABS: Carbon Dioxide 33 mmol/L (20-31); Chloride 92 mmol/L (98-107); Sodium 128 mmol/L (136-145)
[2024-07-02 16:47] VITALS: PULSE 66; RESP 18; O2SAT 94
[2024-07-02 16:57] LABS: Anisocytosis Slight; Platelet Estimate Markedly Increased
[2024-07-02 16:58] LABS: Macrocytosis Slight
[2024-07-02] MEDS: methylPREDNISolone SOD SUCC 125 MG/2 ML VL IV ONE (17:29)
[2024-07-02] MEDS: MAGNESIUM SULFATE 1GM/100ML 100 ML IV ONE (17:29)
[2024-07-02] MEDS: ONDANSETRON HCL 4 MG/2 ML VIAL IV ONE (17:31)
--- NOTE | 2024-07-02 18:28 | DVHHPRES ---
History of Present Illness Resident Creating Document: KISHA CORONA RESIDENT History of Present Illness This is a 78-year-old female with a past medical history of hypertension, COPD on home oxygen 2.5 L, hyperlipidemia, atrial fibrillation, peptic ulcer disease, chronic back pain presented to the ED with a chief complaint of shortness of breath and productive cough with yellowish brown sputum for last 2 days prior to this admission. According to the son the patient was was gasping, shallow breathing and about to collapse that prompted this visit. The patient states that she was admitted 2times in [facility] in last 1.5 months with a diagnosis of pneumonia . Patient also mentioned had an EGD on and revealed large nonhealing ulcer in antrum with [id number] gastritis and postbulbar duodenal stricture and she is on Protonix 40 mg p.o. daily and sucralfate 1 g q.i.d. Patient denies fever, chills, chest pain, dizziness, diaphoresis, abdominal pain, nausea, vomiting, dysuria, hematuria or any change in bowel and bladder movement. Past Medical History Hypertension, COPD on home oxygen 2.5 L, hyperlipidemia, atrial fibrillation, peptic ulcer disease, chronic back pain Past Surgical History Cholecystectomy, hernia repair Family History None Past Social History Lives with family Remote smoking history, quit 3 years ago, nonalcoholic and never tried any drugs Review of Systems Constitutional: No: Fever, Chills, Sweats, Weakness, Malaise, Other Eyes: No: Pain, Vision change, Conjunctivae inflammation, Eyelid inflammation, Other, Redness ENT: No: Ear pain, Ear discharge, Nose pain, Nose discharge, Nose congestion, Mouth pain, Mouth swelling, Throat pain, Throat swelling, Other Respiratory: Cough, Shortness of breath, Wheezing Cardiovascular: No: Chest Pain, Palpitations, Orthopnea, Paroxysmal Noc. Dyspnea, Edema, Lt Headedness, Other Gastrointestinal: Nausea; No: Vomiting, Abdominal Pain, Diarrhea, Constipation, Melena, Hematochezia, Other Genitourinary: No Dysuria, No Frequency, No Incontinence, No Hematuria, No Retention, No Other Musculoskeletal: No: other, neck pain, shoulder pain, arm pain, back pain, hand pain, leg pain, foot pain Skin: No: Rash, Lesions, Jaundice, Bruising, Other Neurological: No: Weakness, Numbness, Incoordination, Change in speech, Confusion, Seizures, Other Allergies: Coded Allergies: NO KNOWN ALLERGIES (Unverified , 09/24/22) Medications Current Medications Medications Dose Ordered Sig/Fabi Route Start Time Stop Time Status Last Admin Dose Admin Ipratropium [place] 0.5 mg Q6HR NEB 07/03/24 00:00 UNV Albuterol 2.5 mg Q6HR NEB 07/03/24 00:00 UNV Vancomycin HCl 0 ml @ 0 mls/hr UD IV 07/02/24 18:30 UNV Piperacillin Sod/ Tazobactam Sod 100 ml @ 100 mls/hr Q8HR IV 07/02/24 22:00 UNV Methylprednisolone Sodium Succinate 40 mg BID IV 07/02/24 22:00 UNV Exam Vital Signs Vital Signs Date Time Temp Pulse Resp B/P (MAP) Pulse Ox O2 Delivery O2 Flow Rate FiO2 07/02/24 16:47 98.9 66 16 96/59 (71) 94 98.9 07/02/24 16:47 Room Air* 0 21 Exam Physical examination: General Appearance: Alert, Oriented X3, Cooperative, mild distress HEENT: Atraumatic, PERRLA, EOMI, Mucous membrane moist/pink Respiratory: Crackles on the rt lower base, wheezing bilaterally. Cardiovascular: Regular rate, Normal S1, Normal S2, No murmurs, no chest wall tenderness Abdominal: Normal bowel sounds, Soft, No tenderness, No hepatospenomegaly, No masses Extremities: No clubbing, No cyanosis, No edema, Normal pulses, No tenderness/swelling Skin: No rashes, No breakdown, No significant lesion Neuro: Use walker, Normal speech, Strength at 5/5 X4 ext, Normal tone, Sensation intact, grossly intact cranial nerves Psych/Mental Status: Mental status NL, Mood NL Labs/Xrays Labs Test 07/02/24 15:18 Range/Units White Blood Count 23.6 #H 4.4-10.8 10^3/uL Red Blood Count 3.62 L 4.0-5.20 10^6/uL Hemoglobin 12.1 #L 12.2-16.2 g/dL Hematocrit 36.8 # 36.0-46.0 % Mean Corpuscular Volume 101.7 H 80.0-100.0 fL Mean Corpuscular Hemoglobin 33.5 H 28.0-32.0 pg Mean Corpuscular Hemoglobin Concent 33.0 32.0-36.0 g/dL Red Cell Distribution Width 15.0 H 11.8-14.3 % Platelet Count 717 H 140-450 10^3/uL Mean Platelet Volume 6.7 L 6.9-10.8 fL Neutrophils (%) (Auto) 94.2 H 37.0-80.0 % Lymphocytes (%) (Auto) 3.3 L 10.0-50.0 % Monocytes (%) (Auto) 2.3 0.0-12.0 % Eosinophils (%) (Auto) 0.1 0.0-7.0 % Basophils (%) (Auto) 0.1 0.0-2.0 % Neutrophils # (Auto) 22.3 H 1.6-8.6 10 ^3/uL Lymphocytes # (Auto) 0.8 0.4-5.4 10 ^3/uL Monocytes # (Auto) 0.5 0-1.3 10 ^3/uL Eosinophils # (Auto) 0 0-0.8 10 ^3/uL Basophils # (Auto) 0 0-0.2 10 ^3/uL Nucleated Red Blood Cells 0.0 % Platelet Estimate Markedly increased Anisocytosis (manual) Slight Macrocytosis Slight D-Dimer, Quantitative 3.84 H 0.0-0.49 mg/L FEU Sodium Level 128 #L 136-145 mmol/L Potassium Level 4.3 3.5-5.1 mmol/L Chloride Level 92 L 98-107 mmol/L Carbon Dioxide Level 33 H 20-31 mmol/L Anion Gap 3 L 5-15 Blood Urea Nitrogen 17 9-23 mg/dL Creatinine 0.58 0.550-1.02 mg/dL Glomerular Filtration Rate Calc 94 >90 mL/min BUN/Creatinine Ratio 29.3 H 10.0-20.0 Serum Glucose 81 74-106 mg/dL Calcium Level 9.3 8.7-10.4 mg/dL Troponin I High Sensitivity 7 </=34 ng/L B-Type Natriuretic Peptide 221.70 0-100 pg/mL Assessment/Plan Assessment/Plan Assessment and Plan # Aspiration pneumonia /Right lower lobe pneumonia # Rule out pulmonary embolism # Chronic respiratory failure secondary to COPD # Possible acute exacerbation of chronic COPD - Patient is on 4 L oxygen with saturation 94% - chest xray revealed similar-appearing small right pleural effusion with overlying airspace consolidations. Atelectasis and possible developing consolidation in the left lung base, new or more conspicuous compared to the prior exam. - Duoneb with albuterol and ipratropium q.6 hours - IV methylprednisolone 40 mg b.i.d. - IV vancomycin per pharmacy and IV Zosyn 3.375 mg Q 8 hours - Elevated D- dimer - Ordered Doppler scan of the lower extremity and CT angio of the chest to rule out DVT and PE - Ordered blood culture, sputum C/S and urine C/S - Incentive spirometry # Hyponatremia likely secondary to SIADH - Ordered serum osmolality, urine sodium and urine osmolality # Paroxysmal atrial fibrillation with secondary hypercoagulable state [id number] score 4 - Continue amiodarone 200 mg p.o. b.i.d. and Eliquis 2.5 mg b.i.d. # Peptic ulcer disease - EGD on 04/11 revealed large nonhealing ulcer in antrum with [id number] gastritis and postbulbar duodenal stricture. - Protonix 40 mg p.o. daily and sucralfate 1 g b.i.d. # Hypertensive heart disease - Hold antihypertensive as BP is on the lower side. # History of hypothyroidism - Levothyroxine 25 mcg p.o. q.a.m. # Chronic back pain - Percocet 5/325 mg 2 tab q.i.d. daily # DVT prophylaxis - Pt is on eliquis Goal of care discussed with the patient for more than 20 minutes full code Plan discussed with Dr. Villalobos Plan discussed with: Patient, Other My Orders Orders - KISHA CORONA RESIDENT Procedure Category Date Status Time Admit ADMIT 07/02/24 Transmitted 18:13 Bilat Lower Dvt US 07/02/24 Logged 18:[address] 07/02/24 Logged Contrast 18:18 Respiratory Culture JAYLAN 07/02/24 Logged W/ Gs 18:20 Blood Culture JAYLAN 07/02/24 Logged 18:20 Urine Bacterial JAYLAN 07/02/24 Logged Culture 18:20 Ipratropium Medneb PHA 07/03/24 Logged (Atrovent Medneb) 00:00 Albuterol Medneb PHA 07/03/24 Logged (Ventolin Medneb) 00:00 Vancomycin Per PHA 07/02/24 Logged Pharmacy 18:30 Piperacillin-Tazob PHA 07/02/24 Logged 3.375gm (Zosyn 3.375g 22:00 Methylprednisolone PHA 07/02/24 Logged Sod Succ (Solu Medrol 22:00 Amiodarone Tablet PHA 07/03/24 Verified (Cordarone Tablet) 10:00 Apixaban (Eliquis) PHA 07/02/24 Verified 22:00 Hydrochlorothiazide PHA 07/03/24 Verified Tablet (Hydrochlorot 10:00 Levothyroxine Tablet PHA 07/03/24 Verified (Synthroid Tablet) 07:00 Oxycodone W/ Acet PHA 07/02/24 Verified 5/325mg Tab (Percocet 22:00 Pantoprazole Tablet PHA 07/02/24 Verified (Protonix Tablet) 22:00 Sucralfate Tab PHA 07/03/24 Verified (Carafate Tab) 00:00 Date of Service: Jul 02, 2024 Billing Provider: SEAMUS VILLALOBOS MD Common Visit Codes: [id number] INP/OBS CARE (HIGH) Secondary Visit Codes: [id number] CARE PLAN 30 MINUTES KISHA CORONA RESIDENT Jul 02, 2024 18:28 SEAMUS VILLALOBOS MD Jul 02, 2024 22:51
[2024-07-02] MEDS ORDERED: VANCOMYCIN PER PHARMACY 0 MG IV SCH (18:30)
[2024-07-02] MEDS: cefTRIAXone 1GM/50ML D5W 50 ML IV ONE (18:38)
[2024-07-02] MEDS: PANTOPRAZOLE 40 MG TAB PO SCH (19:00)
--- NOTE | 2024-07-02 19:45 | DVH ---
CLINICAL HISTORY: To rule out DVT, shortness of breath TECHNIQUE: Color and duplex doppler imaging of the bilateral lower extremity veins was performed. Ves meredith compression if possible was also performed. WID: COMPARISON: None FINDINGS: Right Lower Extremity: Right common femoral vein: Normal compressibility and flow. Right femoral vein: Normal compressibility and flow. Right popliteal vein: Normal compressibility and flow. Proximal calf veins are normally compressible. Left Lower Extremity: Left common femoral vein: Normal compressibility and flow. Left femoral vein: Normal compressibility and flow. Left popliteal vein: Normal compressibility and flow. Proximal calf veins are normally compressible. IMPRESSION: NO SONOGRAPHIC EVIDENCE FOR DEEP VENOUS THROMBOSIS IN THE BILATERAL LOWER EXTREMITY VEINS.
[2024-07-02 20:04] VITALS: PULSE 72; RESP 19; O2SAT 96
[2024-07-02 20:06] VITALS: O2SAT 91
[2024-07-02 20:17] VITALS: BP 98/60; PULSE 66; RESP 18; TEMP 98.3; O2SAT 91
[2024-07-02] MEDS: IOHEXOL 350 MG/ML 100ML IJ ONE (20:36)
[2024-07-02 21:00] VITALS: BP 131/95; PULSE 102; RESP 18; TEMP 98.6; O2SAT 96
[2024-07-02] MEDS: AZITHROMYCIN 500MG/ 250ML 250 ML IV ONE (21:26)
[2024-07-02] MEDS: methylPREDNISolone SOD SUCC 40 MG/ML VL IV SCH (21:35)
[2024-07-02] MEDS ORDERED: PANTOPRAZOLE 40 MG TAB PO SCH (22:00)
[2024-07-02] MEDS: APIXABAN 2.5 MG TAB PO SCH (22:31)
[2024-07-02] MEDS: SUCRALFATE 1 GM TAB PO SCH (22:31)
[2024-07-02] MEDS: OXYCODONE W/ ACETAMINOPHEN 5/325MG TABLET PO SCH (22:32)
[2024-07-03] VITALS (12 sets, daily range): BP systolic 127; BP diastolic 72; PULSE 68–82; RESP 16–20; TEMP 95.5; O2SAT 91–100
[2024-07-03] MEDS: ALBUTEROL SULF 2.5 MG/0.5ML(0.5%) NEB SOLN NEB SCH (00:50)
[2024-07-03] MEDS: IPRATROPIUM BROM 0.5 MG/2.5ML INH SOL NEB SCH (00:50)
[2024-07-03] MEDS: VANCOMYCIN 1GM/250ML KIT 250 ML IV ONE (04:34)
[2024-07-03] MEDS: PIPERACILLIN-TAZOB 3.375GM 100 ML IV SCH (04:42)
--- NOTE | 2024-07-03 05:09 | DVH ---
CTA Chest with intravenous contrast INDICATION: To rule out PE COMPARISON: Chest radiograph performed 07/02/2024. TECHNIQUE: Multidetector spiral CTA of the chest was performed of the chest with cc of intravenous c ontrast. PULMONARY ANGIOGRAPHY PROTOCOL was utilized using a bolus-tracking technique centered on the main pulmonary artery. Axial, coronal and sagittal multiplanar and MIP reformats were performed. Radiation Dose : 1. Chest: CTDI volume is 20.72 mGy. Dose-length product is 493.67 mGy*cm The dose indicators for CT are the volume Computed Tomography (CT) Dose Index (CTDIvol) and the Dose Length Product (DLP), and are measured in units of mGy and mGy-cm, respectively. These indicators are not patient dose, but values generated from the CT scanner acquisition factors. The report includes radiation exposure data for exposures received during this examination. FINDINGS: Pulmonary artery: No central, lobar or proximal segmental pulmonary embolus. Dilated main pulmonary a rtery which can be seen in pulmonary arterial hypertension. Lower neck: The thyroid is unremarkable. Lungs: Patchy bilateral lower lobe consolidation. Several pulmonary nodules for example in the right lower lobe measuring 1.6 cm noted. Emphysema. There is a spiculated nodule in the right apex measur ing 1.5 x 1.5 cm. Central airways: Patent. Pleura: No pneumothorax. No pleural effusions. Heart/Vascular Structures: The heart is normal in size. Coronary artery calcifications. No pericardi al effusion. Thoracic aorta is normal in caliber. No aneurysm or dissection. Lymph Nodes: No mediastinal or hilar lymphadenopathy. Esophagus:Grossly unremarkable. Musculoskeletal: Unremarkable. Body wall: T11 compression deformity of indeterminate age. Upper abdomen: Unremarkable. Bilateral calcified breast implants. Left breast soft tissue thickening versus mass. IMPRESSION: 1. No evidence of pulmonary embolism. 2. Bilateral lower lobe consolidations which may reflect pneumonia. 3. Multiple pulmonary nodules suspicious for metastatic disease. 4. Left breast soft tissue thickening versus mass. 5. Dilated main pulmonary artery which can be seen in pulmonary arterial hypertension. 6. Coronary artery calcifications.
[2024-07-03] MEDS: PIPERACILLIN-TAZOB 3.375GM 100 ML IV ONE (06:21)
[2024-07-03] MEDS: MAGNESIUM SULFATE 1GM/100ML 100 ML IV ONE (06:45)
[2024-07-03] MEDS: LEVOTHYROXINE SODIUM 25 MCG TAB PO SCH (08:04)
[2024-07-03 08:27] LABS: Calcium 9.3 mg/dL (8.7-10.4)
[2024-07-03 08:28] LABS: Anion Gap 7 (5-15); Carbon Dioxide 28 mmol/L (20-31)
[2024-07-03 08:29] LABS: Chloride 89 mmol/L (98-107); Sodium 124 mmol/L (136-145)
[2024-07-03 08:33] LABS: Glucose 76 mg/dL (74-106)
[2024-07-03] MEDS: LORazepam 0.5 MG TAB PO ONE (09:36)
[2024-07-03 09:50] LABS: BUN/Creatinine Ratio 24.2 (10.0-20.0); Blood Urea Nitrogen 15 mg/dL (9-23)
[2024-07-03 09:51] LABS: Hemoglobin 11.5 g/dL (12.2-16.2); Platelet Count (auto) 700 10^3/uL (140-450)
[2024-07-03 09:52] LABS: Mean Corpuscular Hemoglobin 32.8 pg (28.0-32.0); Mean Corpuscular Hgb Conc. 32.1 g/dL (32.0-36.0); Mean Corpuscular Volume 102.3 fL (80.0-100.0); Red Blood Cells 3.52 10^6/uL (4.0-5.20); Red Cell Distribution Width 14.6 % (11.8-14.3); White Blood Cell 14.7 10^3/uL (4.4-10.8)
--- NOTE | 2024-07-03 09:52 | ECG ---
[facility] Test Date: 2024-07-02 Test Time: 14:51:06 Pat Name: MILES TOWNSEND Department: ER Room: 0251T Gender: F Neonatal Intensive Care Unit Nurse: FOZIA : [id number] Requested By: JOSE ANTONIO CARDONA Order Number: [id number] Reading MD: Alberto Ruff Measurements Intervals Datil Rate: 60 P: 78 IL: 154 QRS: 63 QRSD: 89 T: 55 QT: 444 QTc: 444 Interpretive Statements Sinus rhythm Probable left atrial enlargement Borderline low voltage, extremity leads Electronically Signed On 07-07-2024 15:24:05 PST by Alberto Ruff Please click the below link to view image of tracing.
[2024-07-03 09:57] LABS: Basophils % (manual) 0 (0.0-2.0); Blast Cells 0; Eosinophils % (manual) 0 (0-7); Myelocytes % 0; Promyelocytes % 0; Reactive Lymphocytes 0
[2024-07-03] MEDS: AMIODARONE HCL 200 MG TAB PO SCH (09:57)
[2024-07-03] MEDS ORDERED: hydroCHLOROthiazide 25 MG TAB PO SCH (10:00)
[2024-07-03] MEDS: VANCOMYCIN 1GM/250ML KIT 250 ML IV SCH (10:05)
[2024-07-03 11:55] LABS: Free T3 0.55 pg/mL (2.3-4.2); Free T4 (Free Thyroxine) 0.57 ng/dL (0.89-1.76)
[2024-07-03 12:06] LABS: Band Neutrophils % (manual) 3; Lymphocytes % (manual) 7 (10.0-50.0); Macrocytosis Slight; Metamyelocytes % 1; Monocytes % (manual) 2 (0-12); Platelet Estimate Increased
[2024-07-03 13:21] LABS: Urine Bacteria None Seen /hpf (None Seen)
[2024-07-03] MEDS: ONDANSETRON HCL 4 MG/2 ML VIAL IV ONE (13:55)
[2024-07-03 14:14] LABS: Urine Blood Negative /uL (Negative); Urine Clarity Clear (Clear); Urine Color Yellow (Yellow); Urine Protein, UAD TRACE (Negative); Urine Squamous Epithelial Cell FEW /hpf (<5); Urine Urobilinogen Normal (Negative); Urine WBC <1 /hpf (0 - 5)
[2024-07-03] MEDS: metroNIDAZOLE 500MG/100ML 100 ML IV SCH (14:21)
[2024-07-03] MEDS: SODIUM CHLORIDE 0.9% 1,000 ML IV SCH (15:15)
--- NOTE | 2024-07-03 18:12 | DVHPNRES ---
Progress Note Date Seen: Jul 03, 2024 Resident Creating Document: KISHA CORONA RESIDENT Medical Necessity Reason Pt with a Central, PICC or Fol: No Subjective Review of Systems This is a 78-year-old female with a past medical history of hypertension, COPD on home oxygen 2.5 L, hyperlipidemia, atrial fibrillation, peptic ulcer disease, chronic back pain presented to the ED with a chief complaint of shortness of breath and productive cough with yellowish brown sputum for last 2 days prior to this admission. According to the son the patient was was gasping, shallow breathing and about to collapse that prompted this visit. Patient was seen and examined in the ED. No overnight complaint and mentioned improvement of shortness of Breath . No other complaints Constitutional: No: Fever, Chills, Sweats, Weakness, Malaise, Other Eyes: No: Pain, Vision change, Conjunctivae inflammation, Eyelid inflammation, Other, Redness ENT: No: Ear pain, Ear discharge, Nose pain, Nose discharge, Nose congestion, Mouth pain, Mouth swelling, Throat pain, Throat swelling, Other Respiratory: Shortness of breath, improving Cough, sputum, No Dry,Wheezing, Hemoptysis, Pleuritic Pain, Wheezing, Other Cardiovascular: No: Chest Pain, Palpitations, Orthopnea, Paroxysmal Noc. Dyspnea, Edema, Lt Headedness, Other Gastrointestinal: No: Nausea, Vomiting, Abdominal Pain, Diarrhea, Constipation, Melena, Hematochezia, Other Musculoskeletal: No: other, neck pain, shoulder pain, arm pain, back pain, hand pain, leg pain, foot pain Neurological:; No: Weakness, Numbness, Incoordination, Change in speech, Confusion, Seizures Objective vital signs Vital Sign Date Time Temp Pulse Resp B/P (MAP) Pulse Ox O2 Delivery O2 Flow Rate FiO2 07/03/24 15:06 97.7 86 18 98/68 (78 94 97.7 07/03/24 12:51 Nasal Cannula* 3 32 Total Intake and Output 07/02/24 07/02/24 07/03/24 15:00 23:00 07:00 Intake Total 100 ml Balance 100 ml medications Current Medications Medications Dose Ordered Sig/Fabi Route Start Time Stop Time Status Last Admin Dose Admin Ipratropium [place] 0.5 mg Q6HR NEB 07/03/24 00:00 07/03/24 12:45 0.5 MG Albuterol 2.5 mg Q6HR NEB 07/03/24 00:00 07/03/24 12:45 2.5 MG Vancomycin HCl 0 ml @ 0 mls/hr UD IV 07/02/24 18:30 Methylprednisolone Sodium Succinate 40 mg BID IV 07/02/24 22:00 07/03/24 10:05 40 MG Amiodarone HCl 200 mg DAILY PO 07/03/24 10:00 07/03/24 09:57 200 MG Apixaban 2.5 mg BID PO 07/02/24 22:00 07/03/24 10:21 2.5 MG Levothyroxine Sodium 25 mcg QAM PO 07/03/24 07:00 07/03/24 08:04 25 MCG Oxycodone/ Acetaminophen 2 tab QID PO 07/02/24 22:00 07/03/24 12:43 2 TAB Sucralfate 1 gm ACHS PO 07/02/24 22:00 07/03/24 17:15 1 GM Pantoprazole Sodium 40 mg DAILY PO 07/02/24 19:00 07/03/24 09:57 40 MG Magnesium Oxide 400 mg BID PO 07/03/24 22:00 Vancomycin HCl 250 ml @ 250 mls/hr DAILY IV 07/03/24 10:00 07/03/24 10:05 250 MLS/HR Cefepime HCl 50 ml @ 12.5 mls/hr Q12HR IV 07/03/24 22:00 Metronidazole 100 ml @ 100 mls/hr Q8HR IV 07/03/24 14:00 07/03/24 14:21 100 MLS/HR Sodium Chloride 1,000 ml @ 150 mls/hr Q6H40M IV 07/03/24 15:15 Examination Physical examination: General Appearance: Alert, Oriented X3, Cooperative, mild distress HEENT: Atraumatic, PERRLA, EOMI, Mucous membrane moist/pink Respiratory: Crackles on the rt lower base, wheezing bilaterally. Cardiovascular: Regular rate, Normal S1, Normal S2, No murmurs, no chest wall tenderness Abdominal: Normal bowel sounds, Soft, No tenderness, No hepatospenomegaly, No masses Extremities: No clubbing, No cyanosis, No edema, Normal pulses, No tenderness/swelling Skin: No rashes, No breakdown, No significant lesion Neuro: Use walker, Normal speech, Strength at 5/5 X4 ext, Normal tone, Sensation intact, grossly intact cranial nerves Psych/Mental Status: Mental status NL, Mood NL laboratory and microbiology Laboratory Tests 07/03/24 07:52 Test 07/03/24 07:52 Range/Units Serum Glucose 76 74-106 mg/dL Labs and/or images reviewed: Labs reviewed by me, Image(s) reviewed by me Problem List/Assessment/Plan Problem List/Assessment/Plan Assessment and Plan # Aspiration pneumonia /Right lower lobe pneumonia # Rule out pulmonary embolism # Chronic respiratory failure secondary to COPD # Possible acute exacerbation of chronic COPD - Patient is on 3 L oxygen with saturation 94% - Elevated D- dimer - CT Angio revealed no evidence of pulmonary embolism, bilateral lower lobe consolidation which may reflect pneumonia, multiple pulmonary nodules suspicious for metastatic disease and dilated main pulmonary artery possible pulmonary arterial hypertension. - chest xray revealed similar-appearing small right pleural effusion with overlying airspace consolidations. Atelectasis and possible developing consolidation in the left lung base, new or more conspicuous compared to the prior exam. - Duoneb with albuterol and ipratropium q.6 hours - IV methylprednisolone 40 mg b.i.d. - IV lasix 20 mg b.i.d - IV vancomycin per pharmacy, IV cefepime 1 g 12 hourly and IV metronidazole 500 mg Q 8 hours - Doppler scan of the lower extremity excluded the possibility of DVT. - Pending blood culture, sputum C/S and urine C/S - Incentive spirometry # Hyponatremia likely secondary to SIADH - Serum osmolality is low, urine sodium low and urine osmolality is normal - IV normal saline at 125ml/hr # Paroxysmal atrial fibrillation with secondary hypercoagulable state [id number] score 4 - Continue amiodarone 200 mg p.o. b.i.d. and Eliquis 2.5 mg b.i.d. # Peptic ulcer disease - EGD on 04/11 revealed large nonhealing ulcer in antrum with [id number] gastritis and postbulbar duodenal stricture. - Protonix 40 mg p.o. daily and sucralfate 1 g b.i.d. # Hypertensive heart disease - Hold antihypertensive as BP is on the lower side. # History of hypothyroidism - TSH is high and T3 and T4 are low - Increased Levothyroxine to 50 mcg p.o. q.a.m. # Chronic back pain - Percocet 5/325 mg 2 tab q.i.d. daily # DVT prophylaxis - Pt is on eliquis Goal of care discussed with the patient and the son on 0 full code Plan discussed with Dr. Rodgers Plan discussed with: Patient, Other My Orders My Orders Orders - KISHA CORONA Procedure Category Date Status Time Admit ADMIT 07/02/24 Transmitted 18:13 Bilat Lower Dvt US 07/02/24 Resulted 18:[address] 07/02/24 Resulted Contrast 18:18 Respiratory Culture JAYLAN 07/02/24 Logged W/ Gs 18:20 Blood Culture JAYLAN 07/02/24 In Process 18:20 Urine Bacterial JAYLAN 07/02/24 In Process Culture 18:20 Ipratropium Medneb PHA 07/03/24 In Process (Atrovent Medneb) 00:00 Albuterol Medneb PHA 07/03/24 In Process (Ventolin Medneb) 00:00 Vancomycin Per PHA 07/02/24 In Process Pharmacy 18:30 Methylprednisolone PHA 07/02/24 In Process Sod Succ (Solu Medrol 22:00 Amiodarone Tablet PHA 07/03/24 In Process (Cordarone Tablet) 10:00 Apixaban (Eliquis) PHA 07/02/24 In Process 22:00 Levothyroxine Tablet PHA 07/03/24 In Process (Synthroid Tablet) 07:00 Oxycodone W/ Acet PHA 07/02/24 In Process 5/325mg Tab (Percocet 22:00 Incentive Spirometry ORDERS 07/02/24 Transmitted 18:41 Pantoprazole Tablet PHA 07/02/24 In Process (Protonix Tablet) 19:00 Sucralfate Tab PHA 07/02/24 In Process (Carafate Tab) 22:00 Magnesium Oxide PHA 07/03/24 In Process Tablet (Mag-Ox Tablet) 22:00 Echo 2d Mode Cardiac US 07/03/24 Logged DOP 19:03 Vancomycin 1gm/250ml PHA 07/03/24 In Process Kit 10:00 Vancomycin Per BRIAN 07/05/24 In Process Pharmacy Protoc 09:00 Vancomycin,Trough LAB 07/05/24 Verified 09:00 Basic Metabolic Panel LAB 07/04/24 Verified 04:00 Basic Metabolic Panel LAB 07/05/24 Verified 04:00 Mrsa Screen JAYLAN 07/03/24 Uncollected 09:50 Cefepime 1gm/ 50ml PHA 07/03/24 In Process (Maxipime 1gm/50ml) 22:00 Metronidazole PHA 07/03/24 In Process 500mg/100ml (Flagyl 14:00 * Swallow Request ST 07/03/24 Transmitted 11:57 Strict Aspiration BRIAN 07/03/24 In Process Precautions 11:57 Sodium Chloride 0.9% PHA 07/03/24 In Process 15:15 Ct Ab Pel With Iv Con CT 07/05/24 Logged Only 04:30 Regular Diet DIET 07/03/24 Transmitted Dinner Date of Service: Jul 03, 2024 Billing Provider: ARNIE MANJARREZ MD Common Visit Codes: [id number] INP/OBS CARE(HIGH) KISHA CORONA RESIDENT Jul 03, 2024 18:12 ARNIE MANJARREZ MD Jul 04, 2024 16:20
[2024-07-03] MEDS ORDERED: LEVOTHYROXINE SODIUM 25 MCG TAB PO SCH (18:45)
[2024-07-03 21:35] LABS: Potassium 3.7 mmol/L (3.5-5.1)
[2024-07-03 21:36] LABS: Anion Gap 8 (5-15); Carbon Dioxide 27 mmol/L (20-31)
[2024-07-03 21:37] LABS: Calcium 9.7 mg/dL (8.7-10.4)
[2024-07-03 21:41] LABS: BUN/Creatinine Ratio 23.6 (10.0-20.0); Blood Urea Nitrogen 17 mg/dL (9-23); Glucose 99 mg/dL (74-106)
[2024-07-03 21:43] LABS: Chloride 89 mmol/L (98-107); Sodium 124 mmol/L (136-145)
[2024-07-03] MEDS: CEFEPIME 1GM/ 50ML 50 ML IV SCH (22:35)
[2024-07-03] MEDS: MAGNESIUM OXIDE 400 MG TAB PO SCH (22:39)
[2024-07-04] VITALS (15 sets, daily range): BP systolic 96–153; BP diastolic 45–64; PULSE 67–88; RESP 15–20; TEMP 97.2–98; O2SAT 95–100
[2024-07-04] MEDS: LEVOTHYROXINE SODIUM 25 MCG TAB PO SCH (06:54)
[2024-07-04 06:59] LABS: Mean Corpuscular Volume 100.2 fL (80.0-100.0)
[2024-07-04 07:01] LABS: Hematocrit 30.7 % (36.0-46.0); Hemoglobin 10.3 g/dL (12.2-16.2); Mean Corpuscular Hemoglobin 33.5 pg (28.0-32.0); Mean Corpuscular Hgb Conc. 33.4 g/dL (32.0-36.0); Platelet Count (auto) 606 10^3/uL (140-450); Red Blood Cells 3.06 10^6/uL (4.0-5.20); Red Cell Distribution Width 14.4 % (11.8-14.3); White Blood Cell 14.3 10^3/uL (4.4-10.8)
[2024-07-04 07:08] LABS: Potassium 3.7 mmol/L (3.5-5.1)
[2024-07-04 07:09] LABS: Anion Gap 5 (5-15); Basophils % (manual) 0 (0.0-2.0); Blast Cells 0; Eosinophils % (manual) 0 (0-7); Monocytes % (manual) 0 (0-12); Promyelocytes % 0; Reactive Lymphocytes 0
[2024-07-04 07:10] LABS: Calcium 9.6 mg/dL (8.7-10.4)
[2024-07-04 07:14] LABS: Glucose 106 mg/dL (74-106)
[2024-07-04 07:15] LABS: BUN/Creatinine Ratio 21.2 (10.0-20.0); Blood Urea Nitrogen 14 mg/dL (9-23); Carbon Dioxide 31 mmol/L (20-31); Chloride 93 mmol/L (98-107); Sodium 129 mmol/L (136-145)
[2024-07-04 09:11] LABS: Band Neutrophils % (manual) 1; Large Platelets FEW; Lymphocytes % (manual) 4 (10.0-50.0); Metamyelocytes % 1; Myelocytes % 2; Platelet Estimate Increased
[2024-07-04 09:12] LABS: Macrocytosis Slight
[2024-07-04] MEDS: predniSONE 20 MG TAB PO ONE (10:45)
[2024-07-04] MEDS: AZITHROMYCIN 500MG/ 250ML 250 ML IV ONE (11:14)
--- NOTE | 2024-07-04 11:58 | DVHPNRES ---
Progress Note Date Seen: Jul 04, 2024 Resident Creating Document: KISHA CORONA RESIDENT Medical Necessity Reason Pt with a Central, PICC or Fol: No Subjective Review of Systems This is a 78-year-old female with a past medical history of hypertension, COPD on home oxygen 2.5 L, hyperlipidemia, atrial fibrillation, peptic ulcer disease, chronic back pain presented to the ED with a chief complaint of shortness of breath and productive cough with yellowish brown sputum for last 2 days prior to this admission. According to the son the patient was was gasping, shallow breathing and about to collapse that prompted this visit. Patient was seen and examined in the ED. No overnight complaint and mentioned improvement of shortness of Breath . No other complaints Objective vital signs Vital Sign Date Time Temp Pulse Resp B/P (MAP) Pulse Ox O2 Delivery O2 Flow Rate FiO2 07/04/24 09:00 97.5 83 17 113/45 (67) 95 97.5 07/04/24 07:00 Nasal Cannula* 2 28 Total Intake and Output 07/03/24 07/03/24 07/04/24 15:00 23:00 07:00 Intake Total 250 ml 200 ml Balance 250 ml 200 ml medications Current Medications Medications Dose Ordered Sig/Fabi Route Start Time Stop Time Status Last Admin Dose Admin Ipratropium [place] 0.5 mg Q6HR NEB 07/03/24 00:00 07/04/24 07:00 0.5 MG Albuterol 2.5 mg Q6HR NEB 07/03/24 00:00 07/04/24 07:00 2.5 MG Amiodarone HCl 200 mg DAILY PO 07/03/24 10:00 07/04/24 10:00 200 MG Apixaban 2.5 mg BID PO 07/02/24 22:00 07/04/24 10:00 2.5 MG Oxycodone/ Acetaminophen 2 tab QID PO 07/02/24 22:00 07/04/24 06:55 2 TAB Sucralfate 1 gm ACHS PO 07/02/24 22:00 07/04/24 06:54 1 GM Pantoprazole Sodium 40 mg DAILY PO 07/02/24 19:00 07/04/24 10:00 40 MG Magnesium Oxide 400 mg BID PO 07/03/24 22:00 07/04/24 10:00 400 MG Levothyroxine Sodium 50 mcg QAM PO 07/04/24 07:00 07/04/24 06:54 50 MCG Prednisone 40 mg DAILY PO 07/05/24 10:00 Azithromycin 250 ml @ 125 mls/hr DAILY IV 07/05/24 10:00 Examination Physical examination: General Appearance: Alert, Oriented X3, Cooperative, mild distress HEENT: Atraumatic, PERRLA, EOMI, Mucous membrane moist/pink Respiratory: Mild crackles on the rt lower base Cardiovascular: Regular rate, Normal S1, Normal S2, No murmurs, no chest wall tenderness Abdominal: Normal bowel sounds, Soft, No tenderness, No hepatospenomegaly, No masses Extremities: Bilateral pedal edema+, No clubbing, No cyanosis, Normal pulses, No tenderness/swelling Skin: No rashes, No breakdown, No significant lesion Neuro: Use walker, Normal speech, Strength at 5/5 X4 ext, Normal tone, Sensation intact, grossly intact cranial nerves Psych/Mental Status: Mental status NL, Mood NL laboratory and microbiology Laboratory Tests 07/04/24 06:29 Test 07/04/24 06:29 Range/Units Serum Glucose 106 74-106 mg/dL Microbiology Date/Time Source Procedure Growth Status 07/02/24 20:08 Blood Blood Culture - Preliminary NO GROWTH AFTER 24 HOURS OF INCUBATION. Resulted Labs and/or images reviewed: Labs reviewed by me, Image(s) reviewed by me Problem List/Assessment/Plan Problem List/Assessment/Plan Assessment and Plan # Aspiration pneumonia /Right lower lobe pneumonia # Ruled out pulmonary embolism # Chronic respiratory failure secondary to COPD # Possible acute exacerbation of chronic COPD - Patient is on 2 L oxygen with saturation 94% - Elevated D- dimer - CT Angio revealed no evidence of pulmonary embolism, bilateral lower lobe consolidation which may reflect pneumonia, multiple pulmonary nodules suspicious for metastatic disease and dilated main pulmonary artery possible pulmonary arterial hypertension. - chest xray revealed similar-appearing small right pleural effusion with overlying airspace consolidations. Atelectasis and possible developing consolidation in the left lung base, new or more conspicuous compared to the prior exam. - Duoneb with albuterol and ipratropium q.6 hours - Prednisolone 40 mg po daily - IV lasix 20 mg b.i.d - IV Azithromycin 500 mg daily - Doppler scan of the lower extremity excluded the possibility of DVT. - Blood culture revealed no growth in 24 hour. 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 - Ordered cortisol in A.M - Ordered CT abdomen with IV contrast to rule out intra-abdominal malignancy. # Paroxysmal atrial fibrillation with secondary hypercoagulable state [id number] score 4 - Continue amiodarone 200 mg p.o. b.i.d. and Eliquis 2.5 mg b.i.d. # Peptic ulcer disease - EGD on 04/11 revealed large nonhealing ulcer in antrum with [id number] gastritis and postbulbar duodenal stricture. - Protonix 40 mg p.o. daily and sucralfate 1 g b.i.d. # Hypertensive heart disease - Hold antihypertensive as BP is on the lower side. # Chronic back pain - Percocet 5/325 mg 2 tab q.i.d. daily # DVT prophylaxis - Pt is on eliquis Goal of care discussed with the patient and the son on 0 full code Plan discussed with Dr. Rodgers Plan discussed with: Patient, Other My Orders My Orders Orders - KISHA CORONA Procedure Category Date Status Time * Swallow Request ST 07/03/24 Transmitted 11:57 Strict Aspiration BRIAN 07/03/24 In Process Precautions 11:57 Ct Ab Pel With Iv Con CT 07/05/24 Logged Only 04:30 Regular Diet DIET 07/03/24 Transmitted Dinner Levothyroxine Tablet PHA 07/04/24 In Process (Synthroid Tablet) 07:00 Cortisol Am LAB 07/04/24 Logged 10:25 Basic Metabolic Panel LAB 07/04/24 Logged 03:00 Prednisone Tablet PHA 07/05/24 In Process 10:00 Azithromycin 500mg/ PHA 07/05/24 In Process 250ml (Zithromax 50 10:00 Azithromycin 500mg/ PHA 07/04/24 In Process 250ml (Zithromax 50 10:45 Date of Service: Jul 04, 2024 Billing Provider: ARNIE MANJARREZ MD Common Visit Codes: [id number] INP/OBS CARE(HIGH) KISHA CORONA RESIDENT Jul 04, 2024 11:58 ARNIE MANJARREZ MD Jul 04, 2024 16:25
--- NOTE | 2024-07-04 11:58 | DVHSR ---
APPROVED REPORT EXAM: LIMITED Two-dimensional and M-mode echocardiogram with Doppler and color Doppler. Blood Pressure: 134/59 mmHg INDICATION shortness of breath RISK FACTORS Height: 5'6, Weight: 127 DIMENSIONS LVDd3.9 (3.8-5.7cm)LA (2D)3.6 (1.9-4.0cm)Aortic Root3.7 (2.0-3.7cm) LVDs2.6 (2.5-4.0cm)LA (MM) (1.9-4.0cm)Aortic Cusp Exc0.9 (1.5-2.0cm) EF (%) 55.0 (55-70%)Rt. Atrium2.2 (1.9-4.0cm)Asc. Aorta cm IVSd0.9 (0.7-1.1cm)RV (D)3.3 (1.8-2.4cm) PWd0.8 (0.7-1.1cm) Mitral Valve MitralMitral Stenosis E wave0.70m/sMV Mean GR.mmHg A wave1.10m/sMV Peak GR.mmHg E/A ratio0.62D MVAcm2 DECEL [id number] 1/2 Timems Aortic Valve Aortic ValveAortic Stenosis V11.28m/Enma Mean GR.28mmHg V23.37m/Enma Peak GR.45mmHg LVOT Diameter1.5 (1.8-2.4cm)Doppler AVA0.67cm2 Tricuspid Valve TR Velocity3.20m/s [id number] LEFT VENTRICLE The left ventricle is of normal size. Wall thickness is normal. Systolic function is hyperdynamic w ith an estimated ejection fraction of 70-75%. There is no gross regional wall motion abnormalities. There is grade II diastolic dysfunction. E to E prime ratio is in the indeterminate range. RIGHT VENTRICLE The right ventricle is of normal size. Systolic function is normal. ATRIA The left atrium is moderately dilated in size. The right atrium is likely of normal size. Likely normal. MITRAL VALVE There is mild mitral annular calcification. No significant regurgitation. PULMONIC VALVE Likely normal. TRICUSPID VALVE Normal structure and function. There is mild tricuspid regurgitation. PA systolic pressure is estim ated at 40-45 mm Hg. AORTIC VALVE Not very well visualized. Leaflets appeared to be heavily calcified. Peak aortic velocity is estima terrell at 3.4 m/sec with a mean gradient of 29 mm Hg. Aortic valve area is estimated at 0.[address] roke volume index is estimated at 25 mL per m2. Dimensionless index is estimated at 0.35. There is no significant insufficiency. GREAT VESSELS The aortic root is of normal size. The proximal ascending aorta is not well visualized. PERICARDIAL EFFUSION No significant pericardial effusion. IVC is of normal size and collapses normally with inspiration. Other Information Quality : LimitedRhythm : Technically limited study due to breast implants. Conclusion The study is technically limited. Normal left ventricular size with hyperdynamic systolic function. Normal right ventricular size and systolic function. Grade II diastolic dysfunction. Moderate left-sided atrial enlargement. Heavily calcified aortic valve with possible low-flow low gradient severe aortic valve stenosis. Thi s would need further assessment. PA systolic pressure is estimated at 40-45 mm Hg.
[2024-07-04] MEDS ORDERED: MIDAZOLAM HCL 2MG/2ML 2ml VIAL (1mg/ml) ONE (12:09)
[2024-07-04] MEDS ORDERED: fentaNYL CITRATE 100 MCG/2 ML VL ONE (12:09)
[2024-07-04] MEDS ORDERED: DexAMETHasone SOD PHOS 10MG/1ML VIAL INJ ONE (12:18)
[2024-07-04] MEDS ORDERED: PROPOFOL 10 MG/ML 20 ML IV ONE (13:02)
[2024-07-04] MEDS ORDERED: ONDANSETRON HCL 4 MG/2 ML VIAL IV PRN (14:15)
[2024-07-04] MEDS: cefTRIAXone 1GM/50ML D5W 50 ML IV ONE (14:45)
[2024-07-04] MEDS: ONDANSETRON HCL 4 MG/2 ML VIAL IV PRN (15:15)
[2024-07-05] VITALS (15 sets, daily range): BP systolic 103–154; BP diastolic 60–68; PULSE 56–88; RESP 14–20; TEMP 97.3–98; O2SAT 90–100
[2024-07-05 03:14] LABS: Chloride 99 mmol/L (98-107); Potassium 3.5 mmol/L (3.5-5.1)
[2024-07-05 03:15] LABS: Anion Gap 4 (5-15); Calcium 9.4 mg/dL (8.7-10.4); Carbon Dioxide 30 mmol/L (20-31)
[2024-07-05 03:20] LABS: BUN/Creatinine Ratio 21.6 (10.0-20.0); Blood Urea Nitrogen 11 mg/dL (9-23); Glucose 84 mg/dL (74-106)
[2024-07-05 03:26] LABS: Sodium 133 mmol/L (136-145)
[2024-07-05] MEDS: MELATONIN 5 MG TAB PO ONE (04:53)
[2024-07-05] MEDS: MAGNESIUM SULFATE 1GM/100ML 100 ML IV ONE (06:47)
[2024-07-05 07:23] LABS: Hematocrit 29.9 % (36.0-46.0); Hemoglobin 9.9 g/dL (12.2-16.2); Red Blood Cells 2.96 10^6/uL (4.0-5.20); Red Cell Distribution Width 14.5 % (11.8-14.3)
[2024-07-05 07:26] LABS: Mean Corpuscular Hemoglobin 33.4 pg (28.0-32.0); Mean Corpuscular Hgb Conc. 33.1 g/dL (32.0-36.0); Mean Corpuscular Volume 101.1 fL (80.0-100.0); Platelet Count (auto) 622 10^3/uL (140-450)
[2024-07-05 07:29] LABS: Basophils % (manual) 0 (0.0-2.0); Blast Cells 0; Eosinophils % (manual) 0 (0-7); Metamyelocytes % 0; Myelocytes % 0; Promyelocytes % 0; Reactive Lymphocytes 0
[2024-07-05 07:38] LABS: Anion Gap 5 (5-15); Potassium 3.6 mmol/L (3.5-5.1)
[2024-07-05 07:39] LABS: Calcium 9.9 mg/dL (8.7-10.4)
[2024-07-05 07:44] LABS: BUN/Creatinine Ratio 22.2 (10.0-20.0); Blood Urea Nitrogen 12 mg/dL (9-23); Glucose 76 mg/dL (74-106)
[2024-07-05 07:50] LABS: Carbon Dioxide 32 mmol/L (20-31); Chloride 96 mmol/L (98-107); Sodium 133 mmol/L (136-145)
[2024-07-05 08:17] LABS: Band Neutrophils % (manual) 1; Lymphocytes % (manual) 4 (10.0-50.0); Monocytes % (manual) 3 (0-12)
[2024-07-05 08:18] LABS: Macrocytosis Slight; Platelet Estimate Increased
--- NOTE | 2024-07-05 08:31 | PRN ---
Misceleneous Note Note Note I'm aware of the time frame and want the CT abdomen pelvis with IV contrast need to be done today on 07/05/24 at 8:30 AM. KISHA CORONA RESIDENT Jul 05, 2024 08:31
--- NOTE | 2024-07-05 09:25 | DVH ---
CT CT AB PEL WITH IV CON ONLY INDICATION: R/O MALIGNANCY EXAM DATE: 07/05/2024 08:40 AM COMPARISON: CT CT AB PEL WITH IV CON ONLY on DOS: 12/08/22 RADIATION DOSE: CTDIvol: 6.77 mGy, DLP: 296.0 mGy*cm PROCEDURE: Helical CT images were obtained of the abdomen and pelvis with IV contrast Sagittal and c oronal reconstructions are provided. ORAL CONTRAST: None. ADDITIONAL IMAGES / REFORMATS: None All CT scans at this medical facility are performed using dose modulation techniques as appropriate t o a performed exam including the following: Automated exposure control was utilized; adjustment of th e MA and/or KV according to patient size; and use of iterative reconstruction technique. FINDINGS: LUNG BASE: Similar bibasilar consolidation with pulmonary nodules to prior CT 07/03/24. LIVER: Normal. GALLBLADDER AND BILIARY TREE: Cholecystectomy clips. No intra- or extrahepatic biliary ductal dilatio n. PANCREAS: Normal. SPLEEN: Normal. BOWEL: Moderate colonic diverticulosis with fluid filled colon, could be diarrhea. ADRENALS: Normal. KIDNEYS AND URETER: Metallic embolic material is seen adjacent to the right kidney. BLADDER: Normal. REPRODUCTIVE ORGANS: Normal. LYMPH NODES:No lymphadenopathy. PERITONEUM: No ascites or free air. No other fluid collection. VESSELS: Scattered atherosclerotic calcifications are noted. RETROPERITONEUM: Normal. ABDOMINAL WALL: Normal. BONES: Scattered osseous degenerative changes are noted. Left hip arthroplasty is noted. IMPRESSION: Moderate colonic diverticulosis with fluid filled colon, could be diarrhea. Similar bibasilar consolidation with pulmonary nodules to prior CT 07/03/24.
[2024-07-05] MEDS: ACETAMINOPHEN 325 MG TAB PO PRN (10:57)
[2024-07-05] MEDS: predniSONE 20 MG TAB PO SCH (10:57)
[2024-07-05] MEDS: cefTRIAXone 1GM/50ML D5W 50 ML IV SCH (10:58)
[2024-07-05] MEDS: AZITHROMYCIN 500MG/ 250ML 250 ML IV SCH (11:01)
--- NOTE | 2024-07-05 16:31 | DVHPNRES ---
Progress Note Date Seen: Jul 05, 2024 Resident Creating Document: KISHA CORONA RESIDENT Medical Necessity Reason Pt with a Central, PICC or Fol: No Subjective Review of Systems This is a 78-year-old female with a past medical history of hypertension, COPD on home oxygen 2.5 L, hyperlipidemia, atrial fibrillation, peptic ulcer disease, chronic back pain presented to the ED with a chief complaint of shortness of breath and productive cough with yellowish brown sputum for last 2 days prior to this admission. According to the son the patient was was gasping, shallow breathing and about to collapse that prompted this visit. Patient was seen and examined on the bed side. She is alert, orientedX3 . No overnight complaint and mentioned improvement of shortness of Breath . No other complaints Objective vital signs Vital Sign Date Time Temp Pulse Resp B/P (MAP) Pulse Ox O2 Delivery O2 Flow Rate FiO2 07/05/24 12:39 98.0 78 17 107/61 (76) 97 98.0 07/05/24 11:19 Nasal Cannula 2.0 07/05/24 11:19 28 Total Intake and Output 07/04/24 07/04/24 07/05/24 15:00 23:00 07:00 Intake Total 1000 ml 2773 ml Balance 1000 ml 2773 ml medications Current Medications Medications Dose Ordered Sig/Fabi Route Start Time Stop Time Status Last Admin Dose Admin Ipratropium [place] 0.5 mg Q6HR NEB 07/03/24 00:00 07/05/24 11:19 0.5 MG Albuterol 2.5 mg Q6HR NEB 07/03/24 00:00 07/05/24 11:19 2.5 MG Amiodarone HCl 200 mg DAILY PO 07/03/24 10:00 07/05/24 10:57 200 MG Apixaban 2.5 mg BID PO 07/02/24 22:00 07/05/24 10:56 2.5 MG Oxycodone/ Acetaminophen 2 tab QID PO 07/02/24 22:00 07/05/24 06:45 2 TAB Sucralfate 1 gm ACHS PO 07/02/24 22:00 07/05/24 10:57 1 GM Pantoprazole Sodium 40 mg DAILY PO 07/02/24 19:00 07/05/24 10:56 40 MG Magnesium Oxide 400 mg BID PO 07/03/24 22:00 07/05/24 10:57 400 MG Levothyroxine Sodium 50 mcg QAM PO 07/04/24 07:00 07/05/24 06:45 50 MCG Prednisone 40 mg DAILY PO 07/05/24 10:00 07/05/24 10:57 40 MG Azithromycin 250 ml @ 125 mls/hr DAILY IV 07/05/24 10:00 07/05/24 11:01 125 MLS/HR Ondansetron HCl 4 mg Q4HPRN PRN IV 07/04/24 14:30 07/04/24 15:15 4 MG Phenol/Menthol 1 spr Q2HP PRN MT 07/04/24 14:30 Ceftriaxone Sodium 50 ml @ 100 mls/hr DAILY@09 IV 07/05/24 09:00 07/05/24 10:58 100 MLS/HR Acetaminophen 650 mg Q4HP PRN PO 07/05/24 09:15 07/05/24 10:57 650 MG Examination Physical examination: General Appearance: Alert, Oriented X3, Cooperative, mild distress HEENT: Atraumatic, PERRLA, EOMI, Mucous membrane moist/pink Respiratory: Mild crackles on the rt lower base Cardiovascular: Regular rate, Normal S1, Normal S2, No murmurs, no chest wall tenderness Abdominal: Normal bowel sounds, Soft, No tenderness, No hepatospenomegaly, No masses Extremities: Bilateral pedal edema+, No clubbing, No cyanosis, Normal pulses, No tenderness/swelling Skin: No rashes, No breakdown, No significant lesion Neuro: Use walker, Normal speech, Strength at 5/5 X4 ext, Normal tone, Sensation intact, grossly intact cranial nerves Psych/Mental Status: Mental status NL, Mood N laboratory and microbiology Laboratory Tests 07/05/24 06:52 Test 07/05/24 06:52 Range/Units Serum Glucose 76 74-106 mg/dL Microbiology Date/Time Source Procedure Growth Status 07/04/24 16:00 Nose MRSA Screen - Final Complete 07/03/24 10:04 Voided Urine Urine Culture - Final Complete 07/02/24 20:08 Blood Blood Culture - Preliminary NO GROWTH AFTER 48 HOURS OF INCUBATION. Resulted Labs and/or images reviewed: Labs reviewed by me, Image(s) reviewed by me Problem List/Assessment/Plan Problem List/Assessment/Plan Assessment and Plan # Aspiration pneumonia /Right lower lobe pneumonia # Ruled out pulmonary embolism # Chronic respiratory failure secondary to COPD # Possible acute exacerbation of chronic COPD - Patient is on 2 L oxygen with saturation 94% - Elevated D- dimer - CT Angio revealed no evidence of pulmonary embolism, bilateral lower lobe consolidation which may reflect pneumonia, multiple pulmonary nodules suspicious for metastatic disease and dilated main pulmonary artery possible pulmonary arterial hypertension. - chest xray revealed similar-appearing small right pleural effusion with overlying airspace consolidations. Atelectasis and possible developing consolidation in the left lung base, new or more conspicuous compared to the prior exam. - Duoneb with albuterol and ipratropium q.6 hours - Prednisolone 40 mg po daily - IV lasix 20 mg b.i.d - IV Azithromycin 500 mg daily - Doppler scan of the lower extremity excluded the possibility of DVT. - Blood culture revealed no growth in 24 hour. - Incentive spirometry # Severe aortic stenosis - Echo on 07/04/24 demonstrated EF 70-75% , grade II diastolic dysfunction, aortic valve area 0.7 cm2 and Peak aortic velocity is estimated at 3.4 m/sec with a mean gradient of 29 mm Hg. - Consulted Cardiology. 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 - Cortisol normal - CT abdomen with IV contrast revealed Moderate colonic diverticulosis with fluid filled colon, could be diarrhea. Similar bibasilar consolidation with pulmonary nodules to prior CT 07/03/24 # Paroxysmal atrial fibrillation with secondary hypercoagulable state [id number] score 4 - Continue amiodarone 200 mg p.o. b.i.d. and Eliquis 2.5 mg b.i.d. # Peptic ulcer disease - EGD on 04/11 revealed large nonhealing ulcer in antrum with [id number] gastritis and postbulbar duodenal stricture. - Protonix 40 mg p.o. daily and sucralfate 1 g b.i.d. # Hypertensive heart disease - Hold antihypertensive as BP is on the lower side. # Chronic back pain - Percocet 5/325 mg 2 tab q.i.d. daily # DVT prophylaxis - Pt is on eliquis Goal of care discussed with the patient and the son on 0 full code Plan discussed with Dr. Rodgers Plan discussed with: Patient, Other My Orders My Orders Orders - KISHA CORONA Procedure Category Date Status Time Acetaminophen Tablet PHA 07/05/24 In Process (Tylenol Tablet) 09:15 * Cardiology Consult CONS 07/05/24 Transmitted 11:51 Pt Request For Service PT 07/05/24 Logged 11:53 Date of Service: Jul 05, 2024 Billing Provider: ARNIE MANJARREZ MD Common Visit Codes: [id number] INP/OBS CARE(HIGH) KISHA CORONA Jul 05, 2024 16:31 ARNIE MANJARREZ MD Jul 08, 2024 16:35
[2024-07-05] MEDS: LORazepam 0.5 MG TAB PO ONE (21:31)
[2024-07-06] VITALS (14 sets, daily range): BP systolic 98–119; BP diastolic 61–74; PULSE 77–93; RESP 16–20; TEMP 97.4–98.4; O2SAT 91–100
[2024-07-06 06:40] LABS: Hematocrit 29.8 % (36.0-46.0); Hemoglobin 9.9 g/dL (12.2-16.2); Mean Corpuscular Hemoglobin 33.5 pg (28.0-32.0); Mean Corpuscular Hgb Conc. 33.2 g/dL (32.0-36.0); Platelet Count (auto) 627 10^3/uL (140-450); Red Blood Cells 2.95 10^6/uL (4.0-5.20); Red Cell Distribution Width 14.6 % (11.8-14.3); White Blood Cell 10.9 10^3/uL (4.4-10.8)
[2024-07-06 06:46] LABS: Anion Gap 4 (5-15); Calcium 9.4 mg/dL (8.7-10.4)
[2024-07-06 06:51] LABS: Blood Urea Nitrogen 12 mg/dL (9-23)
[2024-07-06 06:57] LABS: Carbon Dioxide 33 mmol/L (20-31); Chloride 96 mmol/L (98-107); Glucose 66 mg/dL (74-106); Potassium 3.5 mmol/L (3.5-5.1); Sodium 133 mmol/L (136-145)
[2024-07-06 07:14] LABS: Band Neutrophils % (manual) 0; Basophils % (manual) 0 (0.0-2.0); Blast Cells 0; Eosinophils % (manual) 0 (0-7); Metamyelocytes % 0; Myelocytes % 0; Promyelocytes % 0; Reactive Lymphocytes 0
[2024-07-06 08:38] LABS: Lymphocytes % (manual) 11 (10.0-50.0); Macrocytosis Slight; Monocytes % (manual) 7 (0-12); Platelet Estimate Increased
--- NOTE | 2024-07-06 11:27 | DVHINCON2 ---
Date Seen: Jul 06, 2024 Referring Physician MD Xenia Reason for Consultation Severe aortic stenosis History of Present Illness This is a 78-year-old female who presented to the emergency room with a chief complaint of shortness of breath. The patient complains of progressive shortness of breath associated with generalized weakness, exertional dizziness, nausea, vomiting, and diarrhea. She underwent a transthoracic echocardiogram revealing a heavily calcified aortic valve with possible low-flow low gradient severe aortic valve stenosis. The patient does report progressive shortness of breath and exertional dizziness during the past few months. Denies any syncopal events. Follows up in the outpatient setting with Dr. Sanchez with latest appointment being a week ago. The patient is not aware of why she seen a primary materials and corrosion engineer neither a diagnosis of aortic valve stenosis. Significant medical history includes paroxysmal atrial fibrillation on amiodarone/low-dose Eliquis, hypertension, thyroid disease, pneumonia, COPD with O2 dependence and history of tobacco use for which she quit 3 years ago, peptic ulcer disease status post PRBCs, c-difficile, and chronic back pain. Past Medical History Past medical history reviewed. No other significant than mentioned above. Past Surgical History Cholecystectomy Hernia repair Family History: Alzheimer's disease G8 FATHER FH: heart disease G8 MOTHER FH: pancreatic cancer G8 BROTHER Family History Family history reviewed. Social History Denies the use of illicit drugs, alcohol, or tobacco use. Quit tobacco use three years ago. Allergies: Coded Allergies: NO KNOWN ALLERGIES (Unverified , 09/24/22) Home Meds Active Scripts Levofloxacin Hemihydrate (LEVAQUIN 500 MG) 500 Mg Tab, 500 MG PO DAILY for 5 Days, #5 TAB Prov:CORNELIA MARTINEZ MD 06/30/24 Pantoprazole Sodium Sesquihydr (Protonix) 40 Mg Tab, 40 MG PO BID for 30 Days, #60 TAB Prov:CORNELIA MARTINEZ MD 06/30/24 Duloxetine Hcl (Cymbalta) 60 Mg Cap, 1 CAP PO DAILY for 30 Days, #30 CAP 0 Refills Prov:CORNELIA MARTINEZ MD 06/30/24 Amoxicillin & Pot Clavulanate (AUGMENTIN TABLET) 875 Mg Tb, 875 MG PO BID, #20 TAB Prov:ANIL LINARES MD 05/13/24 Docusate Sodium (Docusate Sodium) 100 Mg Cap, 100 MG PO BID PRN, #28 CAP Prov:RIDDHI RANGEL MD 04/17/24 Sucralfate (CARAFATE) 1 Gm Tab, 1 GM PO Q6HR, #120 TAB Prov:RIDDHI RANGEL MD 04/17/24 Prednisone (Prednisone) 20 Mg Tab, 20 MG PO UD, #38 MG Take 60mg by mouth dailyx3 days then 50mg dailyx3 days then 40mg dailyx3 days then 30mg dailyx3 days then 20mg dailyx7 days then 10mg daily x 7 days Prov:RIDDHI RANGEL MD 03/13/24 Ferrous Sulfate (Ferrous Sulfate) 325 Mg Tab, 325 MG PO TIDWM, #90 TAB Prov:RIDDHI RANGEL MD 06/29/23 Reported Medications Pantoprazole Sodium Sesquihydr (Protonix) 40 Mg Tab, 20 MG PO BID, #30 TAB 05/11/24 Multiple Vitamin (Multivitamins) Tab, 1 TAB PO DAILY, #90 TAB 3 Refills 05/11/24 Buprenorphine (Butrans) 15 Mcg/Hr Dis, 15 MCG TD QWEEKLY, DIS 05/11/24 Oxycodone W/ Acetaminophen (Percocet 5/325MG) 1 Tab Tb, 2 TAB PO QID, #120 TAB 05/11/24 Potassium Chloride (POTASSIUM CHLORIDE CR) 10 Meq Tb, 1 TAB PO DAILY, #30 TAB 5 Refills 05/11/24 Levothyroxine Sodium (Levothyroxine Sodium) 25 Mcg Tab, 25 MCG PO QAM, MCG 05/11/24 Omeprazole (Gnp Omeprazole) 20 Mg Tab, 2 TAB PO BID, #90 TAB 1 Refill 05/11/24 Metoprolol Succinate (Metoprolol Succinate Er) 25 Mg Tab, 25 MG PO BID, TAB 05/11/24 Hydrochlorothiazide (Hydrochlorothiazide) 25 Mg Tab, 25 MG PO DAILY for 30 Days, MG 05/11/24 Midodrine HCl (Midodrine Hydrochloride) 10 Mg Tab, 10 MG PO TID, TAB 05/11/24 Lorazepam (ATIVAN TABLET) 0.5 Mg Tb, 1 TAB PO DAILYPRN PRN for ANXIETY, #30 TAB 05/11/24 Hydralazine Hcl (Hydralazine Hcl) 25 Mg Tab, 25 MG PO BIDPRN for 30 Days, MG 05/11/24 Apixaban Base (ELIQUIS) 2.5 Mg Tab, 2.5 MG PO BID, TAB 05/11/24 Albuterol Sulfate (Albuterol Sulfate) 2 Mg Tab, 2 MG PO Q6HP PRN for SHORTNESS OF BREATH, MG 04/16/24 Zvdrhvkyfeq-Cazgyiqbwgkx-Wtfgv (Trelegy Ellipta 100-62.5-25 Mcg/INH) 1 Aer Aer, 1 AER IN DAILY, AER 04/16/24 Buprenorphine (BUTRANS) 5 Mcg/Hr Dis, 15 MCG TD BID, DIS 04/16/24 Hydroxyzine Hcl (Hydroxyzine Hcl) 25 Mg Tab, 25 MG PO BID for 30 Days, MG 04/16/24 Bupropion Hcl (Bupropion Hcl) 100 Mg Tab, 150 MG PO DAILY for 30 Days, MG 04/16/24 Amiodarone Hcl (Amiodarone Hcl) 200 Mg Tab, 200 MG PO DAILY for 30 Days 04/16/24 Ondansetron HCl (Ondansetron) 4 Mg Tab, 4 MG PO TID, TAB 04/16/24 Lidocaine (Lidocaine Patch 5%) 5 % Pad, 5 % EX [id number], PAD 04/15/24 Home Meds Home medications reviewed. Review of Systems Constitutional: No symptom reported Ears, Nose, & Throat: No symptom reported Eyes: No symptom reported Neurological: Exertional dizziness Pulmonary/Respiratory: SOB Cardiovascular: No symptom reported Gastrointestinal: N/V/D Genitourinary: No symptom reported Musculoskeletal: No symptom reported Skin: No symptom reported Psychiatric: No symptom reported Endocrine: No symptom reported Hemotologic/Lymphatic: No symptom reported Vital Signs Vital Signs Date Time Temp Pulse Resp B/P (MAP) Pulse Ox O2 Delivery O2 Flow Rate FiO2 07/06/24 08:59 97.6 79 16 114/62 (79) 98 97.6 07/06/24 06:33 Nasal Cannula* 2 28 Physical Exam General Appearance: Cooperative. Well developed. Well nourished. In no acute distress Head Exam: Normal inspection Neck Exam: Normal inspection. Non-tender. Normal alignment Pulmonary/Respiratory: Chest non-tender. Diminished bilateral breath sounds Cardiovascular/Chest: Regular rate and rhythm. S1, S2. Systolic murmur radiating to bilateral carotids and RSB. No JVD. Peripheral Pulses: 2+ Radial (R). 2+ Radial (L). 2+ Pedal (R). 2+ Pedal (L) Abdominal Exam: Normal bowel sounds. Soft. Nontender. No hepatospenomegaly. No masses Ankle Exam: Positive ankle pitting edema, 2+ Lower extremities: Positive lower extremity pitting edema, 2+ Neuro/Mental Status: A&O x4. Coherent Thoughts/Psych: Normal thought pattern. Appropriate mood and affect. Anxious Appearance: In no acute distress Skin Exam: Normal inspection. Normal color. Warm. Dry Labs/Diagnostic Data Labs Test 07/06/24 05:40 07/05/24 08:00 07/04/24 21:07 07/04/24 06:29 Range/Units White Blood Count 10.9 H 4.4-10.8 10^3/uL Red Blood Count 2.95 L 4.0-5.20 10^6/uL Hemoglobin 9.9 L 12.2-16.2 g/dL Hematocrit 29.8 L 36.0-46.0 % Mean Corpuscular Volume 101.0 H 80.0-100.0 fL Mean Corpuscular Hemoglobin 33.5 H 28.0-32.0 pg Mean Corpuscular Hemoglobin Concent 33.2 32.0-36.0 g/dL Red Cell Distribution Width 14.6 H 11.8-14.3 % Platelet Count 627 H 140-450 10^3/uL Mean Platelet Volume 6.2 L 6.9-10.8 fL Neutrophils (%) (Auto) 37.0-80.0 % Lymphocytes (%) (Auto) 10.0-50.0 % Monocytes (%) (Auto) 0.0-12.0 % Basophils (%) (Auto) 0.0-2.0 % Neutrophils # (Auto) 1.6-8.6 10 ^3/uL Lymphocytes # (Auto) 0.4-5.4 10 ^3/uL Monocytes # (Auto) 0-1.3 10 ^3/uL Differential Total Cells Counted 100.0 100 Neutrophils % (Manual) 82 H 37.0-80.0 Band Neutrophils % (Manual) 0 Lymphocytes % (Manual) 11 10.0-50.0 Monocytes % (Manual) 7 0-12 Eosinophils % (Manual) 0 0-7 Basophils % (Manual) 0 0.0-2.0 Metamyelocytes % (manual) 0 Myelocytes % (Manual) 0 Promyelocytes % (Manual) 0 Blast Cells % (Manual) 0 Reactive Lymphocytes 0 Platelet Estimate Increased Macrocytosis Slight Sodium Level 133 L 136-145 mmol/L Potassium Level 3.5 3.5-5.1 mmol/L Chloride Level 96 L 98-107 mmol/L Carbon Dioxide Level 33 H 20-31 mmol/L Anion Gap 4 L 5-15 Blood Urea Nitrogen 12 9-23 mg/dL Creatinine 0.50 L 0.550-1.02 mg/dL Glomerular Filtration Rate Calc 97 >90 mL/min BUN/Creatinine Ratio 24.0 H 10.0-20.0 Serum Glucose 66 L 74-106 mg/dL Calcium Level 9.4 8.7-10.4 mg/dL Cortisol AM Sample 5.89 5.27-22.45 ug/dL Magnesium Level 1.3 L 1.6-2.6 mg/dL Large Platelets Few Test 07/03/24 10:04 07/03/24 07:51 07/02/24 20:08 07/02/24 15:18 Range/Units Urine Color Yellow Yellow Urine Clarity Clear Clear Urine pH 7.0 5.0-9.0 Urine Specific [place] 1.050 H 1.001-1.035 Urine Protein Trace H Negative Urine Ketones Trace Negative Urine Blood Negative Negative /uL Urine Nitrite Negative Negative Urine Bilirubin Negative Negative Urine Urobilinogen Normal Negative mg/dL Urine Leukocyte Esterase Negative Negative /uL Urine RBC 1 0 - 4 /hpf Urine WBC <1 0 - 5 /hpf Urine Squamous Epithelial Cells Few <5 /hpf Urine Bacteria None seen None Seen /hpf Urine Osmolality 579 mOsm/kg Urine Sodium 23 L 40-220 mmol/L Urine Glucose Normal Normal mg/dL Thyroid Stimulating Hormone (TSH) 13.83 H 0.55-4.78 uIU/mL Free Thyroxine (T4) Calculated 0.57 L 0.89-1.76 ng/dL Free Triiodothyronine (T3) pg/mL 0.55 L 2.3-4.2 pg/mL Lactic Acid Level 1.1 0.4-2.0 mmol/L Eosinophils (%) (Auto) 0.1 0.0-7.0 % Eosinophils # (Auto) 0 0-0.8 10 ^3/uL Basophils # (Auto) 0 0-0.2 10 ^3/uL Nucleated Red Blood Cells 0.0 % Anisocytosis (manual) Slight D-Dimer, Quantitative 3.84 H 0.0-0.49 mg/L FEU Serum Osmolality 269 L 278-298 mOsm/kg Troponin I High Sensitivity 7 </=34 ng/L B-Type Natriuretic Peptide 221.70 0-100 pg/mL Microbiology Date/Time Source Procedure Growth Status 07/04/24 16:00 Nose MRSA Screen - Final Complete 07/03/24 10:04 Voided Urine Urine Culture - Final Complete 07/02/24 20:08 Blood Blood Culture - Preliminary NO GROWTH AFTER 72 HOURS OF INCUBATION. Resulted Assessment Sepsis with bilateral PNA Low-flow low-gradient severe aortic valve stenosis Acute on chronic decompensated HFpEF Paroxysmal atrial fibrillation, stage III, on amiodarone/low-dose Eliquis COPD with O2 dependence and history of tobacco use Peptic ulcer disease status post PRBCs 2 mos ago Thyroid disease Anemia Plan/Recommendation (Dr. Mott) The patient underwent a transthoracic echocardiogram revealing an EF 70-75% with grade 2 diastolic dysfunction. She was also found with severe aortic valve stenosis with an VONNIE estimated at 0.7 cm2, peak aortic velocity estimated at 3.4 ms, a mean gradient of 29 mmHg, and LV stroke volume index estimated at 25 mL/m2. Given low-flow low-gradient, patient is scheduled for dobutamine stress echo to further assess severity of aortic stenosis. In the meantime, initiate preload and afterload reduction. Continue low-dose Eliquis and antiarrhythmic therapy transitioning to Flecainide therapy. Monitor H&H closely given peptic ulcer with blood transfusions within the last two months. Replete electrolytes as necessary. Monitor ECG changes and notify. Thank you for allowing us to participate in this patient's care. Please call if you have any questions or concerns. Critical care time: 35 min. This medical document was created using an electronic medical record system with voice recognition software and computerized dictation system. Although this document has been carefully reviewed, there might still be some phonetic and typographical errors. Occasional wrong-word or ``sound-alike substitutions may have occurred due to the inherent limitations of voice recognition software. These areas are purely typographical due to imperfections of the software programs and do not reflect any compromise in the patient's medical care. Please read the chart carefully and recognize, using context, where these substitutions have occurred. Plan discussed with: Patient, Other NYHA Physical activity limitations: Class3(Marked) ordinary Date of Service: Jul 06, 2024 Billing Provider: BELINDA BELCHER Cardiology Common Codes: [id number] CARE 30-74 MIN BELINDA BELCHER Jul 06, 2024 11:27
[2024-07-06] MEDS: METOPROLOL TARTRATE 25 MG TAB PO ONE (11:30)
[2024-07-06] MEDS: FUROSEMIDE 20 MG/2 ML VIAL IV ONE (11:30)
[2024-07-06] MEDS: SODIUM CHLORIDE 0.9% 1,000 ML IV SCH (12:45)
--- NOTE | 2024-07-06 12:50 | DVHPNRES ---
Progress Note Date Seen: Jul 06, 2024 Resident Creating Document: LUCI YU RESIDENT Has the PT tested + for MRSA If YES, has PT been informed?: No Medical Necessity Reason Pt with a Central, PICC or Fol: No Subjective Review of Systems This is a 78-year-old female with a past medical history of hypertension, COPD on home oxygen 2.5 L, hyperlipidemia, atrial fibrillation, peptic ulcer disease, chronic back pain presented to the ED with a chief complaint of shortness of breath and productive cough with yellowish brown sputum for last 2 days prior to this admission. According to the son the patient was was gasping, shallow breathing and about to collapse that prompted this visit. Patient seen and examined at bedside. The patient is currently on 2 L of oxygen through nasal cannula which is at her baseline. The patient reported several episodes of diarrhea that occurred overnight. We started the patient on IV fluids at a low rate 60 cc/hour for possible dehydration. Cardiology was consulted due to severe aortic stenosis reported on echocardiogram. They assessed the patient and determine that the patient needs and stress echocardiogram with dobutamine on Monday to determine the need of TAVR and possible transfer to higher level of care. Meanwhile we will continue on IV ceftriaxone, azithromycin, levothyroxine 50 mcg q.a.m. and rest of current medical management. Patient is stable, alert and oriented in person, place and time. ROS Constitutional: Denies weight loss, fever and chills. HEENT: Denies changes in vision and hearing. Respiratory: Denies shortness of breath and cough Cardiovascular: Denies chest discomfort or palpitations GI: Reports several episodes of diarrhea. Denies abdominal pain, nausea, vomiting. : Denies dysuria and urinary frequency. Musculoskeletal: Denies myalgias and joint pain Skin: Denies rash and pruritus. Neurological: Denies dizziness, headache, vision or hearing problems Objective vital signs Vital Sign Date Time Temp Pulse Resp B/P (MAP) Pulse Ox O2 Delivery O2 Flow Rate FiO2 07/06/24 11:56 97.5 88 19 103/61 (75) 93 97.5 07/06/24 10:00 Nasal Cannula* 2 28 Total Intake and Output 07/05/24 07/05/24 07/06/24 15:00 23:00 07:00 Intake Total 300 ml 120 ml Balance 300 ml 120 ml medications Current Medications Medications Dose Ordered Sig/Fabi Route Start Time Stop Time Status Last Admin Dose Admin Ipratropium [place] 0.5 mg Q6HR NEB 07/03/24 00:00 07/06/24 06:35 0.5 MG Albuterol 2.5 mg Q6HR NEB 07/03/24 00:00 07/06/24 06:35 2.5 MG Apixaban 2.5 mg BID PO 07/02/24 22:00 07/06/24 11:38 2.5 MG Oxycodone/ Acetaminophen 2 tab QID PO 07/02/24 22:00 07/06/24 11:37 2 TAB Sucralfate 1 gm ACHS PO 07/02/24 22:00 07/06/24 11:38 1 GM Pantoprazole Sodium 40 mg DAILY PO 07/02/24 19:00 07/06/24 11:38 40 MG Magnesium Oxide 400 mg BID PO 07/03/24 22:00 07/06/24 11:37 400 MG Levothyroxine Sodium 50 mcg QAM PO 07/04/24 07:00 07/06/24 06:27 50 MCG Prednisone 40 mg DAILY PO 07/05/24 10:00 07/06/24 11:37 40 MG Azithromycin 250 ml @ 125 mls/hr DAILY IV 07/05/24 10:00 07/05/24 11:01 125 MLS/HR Ondansetron HCl 4 mg Q4HPRN PRN IV 07/04/24 14:30 07/04/24 15:15 4 MG Phenol/Menthol 1 spr Q2HP PRN MT 07/04/24 14:30 Ceftriaxone Sodium 50 ml @ 100 mls/hr DAILY@09 IV 07/05/24 09:00 07/05/24 10:58 100 MLS/HR Acetaminophen 650 mg Q4HP PRN PO 07/05/24 09:15 07/05/24 10:57 650 MG Furosemide 20 mg DAILY IV 07/07/24 10:00 Metoprolol Tartrate 12.5 mg BID PO 07/06/24 22:00 Flecainide Acetate 50 mg Q12HR PO 07/06/24 22:00 Examination Physical Examination General: Patient alert and oriented in person, place and time. Patient following commands. HEENT: Normocephalic, atraumatic, moist mucous membranes Respiratory/pulmonary: Clear lungs bilaterally, very minimal crackles on right lung base. No Wheezes at this time. Currently on 2 L of oxygen through nasal cannula. Cardiovascular: Normal heart sounds S1 and S2 with no associated murmurs Abdomen: Abdomen nondistended, there is no pain to palpation in any of the abdominal quadrants, no palpable masses. Extremities: There is no peripheral edema present at the lower extremities. Peripheral Pulses: 3+ Radial (R). 3+ Radial (L). 3+ Dorsalis pedis (R). 3+ Dorsalis pedis(L) Skin: No rashes or pruritus, there is no sacral edema present at this time. Neurological: Intact cranial nerves with no focal neurologic deficits laboratory and microbiology Laboratory Tests 07/06/24 05:40 Test 07/06/24 05:40 Range/Units Serum Glucose 66 L 74-106 mg/dL Microbiology Date/Time Source Procedure Growth Status 07/04/24 16:00 Nose MRSA Screen - Final Complete 07/03/24 10:04 Voided Urine Urine Culture - Final Complete 07/02/24 20:08 Blood Blood Culture - Preliminary NO GROWTH AFTER 72 HOURS OF INCUBATION. Resulted Problem List/Assessment/Plan Problem List/Assessment/Plan Assessment/Plan Acute hypoxic respiratory failure likely due to Aspiration pneumonia Right lower lobe bacterial gram +/- pneumonia Ruled out pulmonary embolism Chronic respiratory failure secondary to COPD Possible COPD exacerbation - Patient is on 2 L oxygen with saturation 94% - Elevated D- dimer - CT Angio revealed no evidence of pulmonary embolism, bilateral lower lobe consolidation which may reflect pneumonia, multiple pulmonary nodules suspicious for metastatic disease and dilated main pulmonary artery possible pulmonary arterial hypertension. - chest xray revealed similar-appearing small right pleural effusion with overlying airspace consolidations. Atelectasis and possible developing consolidation in the left lung base, new or more conspicuous compared to the prior exam. - Duoneb with albuterol and ipratropium q.6 hours - Prednisolone 40 mg po daily - IV lasix 20 mg b.i.d - IV Azithromycin 500 mg daily - Doppler scan of the lower extremity excluded the possibility of DVT. - Blood culture revealed no growth in 24 hour. - Incentive spirometry Severe aortic stenosis - Echo on 07/04/24 demonstrated EF 70-75% , grade II diastolic dysfunction, aortic valve area 0.7 cm2 and Peak aortic velocity is estimated at 3.4 m/sec with a mean gradient of 29 mm Hg. - Consulted Cardiology. -cardiology recommended dobutamine stress echo to further assess severity of aortic stenosis whicjh will be performed on monday. Acute diarrhea -start IV fluids at low rate 60 cc/hour to prevent dehydration, consider stopping fluids in 12hrs. 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 - Cortisol normal - CT abdomen with IV contrast revealed Moderate colonic diverticulosis with fluid filled colon, could be diarrhea. Similar bibasilar consolidation with pulmonary nodules to prior CT 07/03/24 Paroxysmal atrial fibrillation with secondary hypercoagulable state -[id number] score 4 - Continue amiodarone 200 mg p.o. b.i.d. and Eliquis 2.5 mg b.i.d. Peptic ulcer disease - EGD on 04/11 revealed large nonhealing ulcer in antrum with [id number] gastritis and postbulbar duodenal stricture. - Protonix 40 mg p.o. daily and sucralfate 1 g b.i.d. Hypertensive heart disease - Hold antihypertensive as BP is on the lower side. Chronic back pain - Percocet 5/325 mg 2 tab q.i.d. daily DVT prophylaxis - Pt is on eliquis Waiting for echo stress test with dobutamine to determine final degree of severity of aortic stenosis and possible need of TAVR. Will be performed on monday. Goals of care discussed with the patient at bedside for 20 minutes, FULL CODE Plan discussed with Dr. Domingo Plan discussed with: Patient Date of Service: Jul 06, 2024 Billing Provider: AGUILAR DOMINGO MD Common Visit Codes: [id number] INP/OBS CARE(HIGH) LUCI YU RESIDENT Jul 06, 2024 12:50 AGUILAR DOMINGO MD Jul 07, 2024 20:07
[2024-07-06] MEDS: IOHEXOL 300 MG/ML 100ML BOTTLE IJ ONE (15:38)
[2024-07-06] MEDS: METOPROLOL TARTRATE 25 MG TAB PO SCH (21:26)
[2024-07-06] MEDS: FLECAINIDE ACETATE 50 MG TAB PO SCH (21:27)
[2024-07-07] VITALS (17 sets, daily range): BP systolic 92–140; BP diastolic 59–75; PULSE 75–94; RESP 16–20; TEMP 97.6–98.8; O2SAT 93–100
[2024-07-07 07:45] LABS: Alanine Aminotransferase 14 U/L (7-40); Alkaline Phosphatase 74 U/L (46-116); Anion Gap 5 (5-15); Aspartate Aminotransferase 15 U/L (13-40); BUN/Creatinine Ratio 23.1 (10.0-20.0); Blood Urea Nitrogen 12 mg/dL (9-23); Calcium 9.5 mg/dL (8.7-10.4); Glucose 78 mg/dL (74-106)
[2024-07-07 07:59] LABS: Albumin 3.1 g/dL (3.2-4.8); Bilirubin, Total 0.2 mg/dL (0.2-1.0); Carbon Dioxide 34 mmol/L (20-31); Chloride 95 mmol/L (98-107); Sodium 134 mmol/L (136-145); Total Protein 4.9 g/dL (5.7-8.2)
[2024-07-07 08:13] LABS: Hemoglobin 9.8 g/dL (12.2-16.2); Red Blood Cells 3.01 10^6/uL (4.0-5.20); White Blood Cell 11.7 10^3/uL (4.4-10.8)
[2024-07-07 08:15] LABS: Hematocrit 30.9 % (36.0-46.0); Mean Corpuscular Hemoglobin 32.5 pg (28.0-32.0); Mean Corpuscular Hgb Conc. 31.7 g/dL (32.0-36.0); Mean Corpuscular Volume 102.7 fL (80.0-100.0); Platelet Count (auto) 631 10^3/uL (140-450); Red Cell Distribution Width 15.1 % (11.8-14.3)
[2024-07-07 08:25] LABS: Band Neutrophils % (manual) 0; Basophils % (manual) 0 (0.0-2.0); Blast Cells 0; Eosinophils % (manual) 0 (0-7); Metamyelocytes % 0; Myelocytes % 0; Promyelocytes % 0; Reactive Lymphocytes 0
[2024-07-07 09:08] LABS: Lymphocytes % (manual) 10 (10.0-50.0); Monocytes % (manual) 7 (0-12); Platelet Estimate Increased
[2024-07-07 09:09] LABS: Hypochromia Slight; Macrocytosis Slight
[2024-07-07] MEDS: FUROSEMIDE 20 MG/2 ML VIAL IV SCH (09:34)
--- NOTE | 2024-07-07 11:14 | DVHPNRES ---
Progress Note Date Seen: Jul 07, 2024 Resident Creating Document: KISHA CORONA RESIDENT Has the PT tested + for MRSA If YES, has PT been informed?: No Medical Necessity Reason Pt with a Central, PICC or Fol: No Subjective Review of Systems This is a 78-year-old female with a past medical history of hypertension, COPD on home oxygen 2.5 L, hyperlipidemia, atrial fibrillation, peptic ulcer disease, chronic back pain presented to the ED with a chief complaint of shortness of breath and productive cough with yellowish brown sputum for last 2 days prior to this admission. According to the son the patient was was gasping, shallow breathing and about to collapse that prompted this visit. Patient seen and examined at bedside. The patient is currently on 2 L of oxygen through nasal cannula which is at her baseline. The patient reported several episodes of diarrhea that occurred overnight. We started the patient on IV fluids at a low rate 60 cc/hour for possible dehydration. Cardiology was consulted due to severe aortic stenosis reported on echocardiogram. They assessed the patient and determine that the patient needs and stress echocardiogram with dobutamine on Monday to determine the need of TAVR and possible transfer to higher level of care. Meanwhile we will continue on IV ceftriaxone, azithromycin, levothyroxine 50 mcg q.a.m. and rest of current medical management. Patient is stable, alert and oriented in person, place and time. Objective vital signs Vital Sign Date Time Temp Pulse Resp B/P (MAP) Pulse Ox O2 Delivery O2 Flow Rate FiO2 07/07/24 10:00 94 Nasal Cannula 2.0 07/07/24 10:00 28 07/07/24 09:34 112/72 07/07/24 09:28 85 07/07/24 09:00 97.6 16 97.6 Total Intake and Output 07/06/24 07/06/24 07/07/24 15:00 23:00 07:00 Intake Total 120 ml 825 ml Balance 120 ml 825 ml medications Current Medications Medications Dose Ordered Sig/Fabi Route Start Time Stop Time Status Last Admin Dose Admin Ipratropium [place] 0.5 mg Q6HR NEB 07/03/24 00:00 07/07/24 06:02 0.5 MG Albuterol 2.5 mg Q6HR NEB 07/03/24 00:00 07/07/24 06:02 2.5 MG Apixaban 2.5 mg BID PO 1/14/25 22:00 07/07/24 09:28 2.5 MG Oxycodone/ Acetaminophen 2 tab QID PO 07/02/24 22:00 07/07/24 06:15 2 TAB Sucralfate 1 gm ACHS PO 07/02/24 22:00 07/07/24 06:16 1 GM Pantoprazole Sodium 40 mg DAILY PO 07/02/24 19:00 07/07/24 09:28 40 MG Magnesium Oxide 400 mg BID PO 07/03/24 22:00 07/07/24 09:27 400 MG Levothyroxine Sodium 50 mcg QAM PO 07/04/24 07:00 07/07/24 06:16 50 MCG Prednisone 40 mg DAILY PO 07/05/24 10:00 07/07/24 09:28 40 MG Azithromycin 250 ml @ 125 mls/hr DAILY IV 07/05/24 10:00 07/06/24 16:37 125 MLS/HR Ondansetron HCl 4 mg Q4HPRN PRN IV 07/04/24 14:30 07/06/24 18:33 4 MG Phenol/Menthol 1 spr Q2HP PRN MT 07/04/24 14:30 Ceftriaxone Sodium 50 ml @ 100 mls/hr DAILY@09 IV 07/05/24 09:00 07/07/24 09:34 100 MLS/HR Acetaminophen 650 mg Q4HP PRN PO 07/05/24 09:15 07/05/24 10:57 650 MG Furosemide 20 mg DAILY IV 07/07/24 10:00 07/07/24 09:34 20 MG Metoprolol Tartrate 12.5 mg BID PO 07/06/24 22:00 07/07/24 09:28 12.5 MG Flecainide Acetate 50 mg Q12HR PO 07/06/24 22:00 07/07/24 09:28 50 MG Sodium Chloride 1,000 ml @ 60 mls/hr [id number] IV 07/06/24 12:45 07/06/24 12:45 60 MLS/HR Examination Physical examination: General Appearance: Alert, Oriented X3, Cooperative, No acute distress HEENT: Atraumatic, PERRLA, EOMI, Mucous membrane moist/pink Respiratory: Clear to auscultation, Normal air movement Cardiovascular: Regular rate, Normal S1, Normal S2, No murmurs, no chest wall tenderness Abdominal: Normal bowel sounds, Soft, No tenderness, No hepatospenomegaly, No masses Extremities: Edema+, No clubbing, No cyanosis, Normal pulses, No tenderness/swelling Skin: No rashes, No breakdown, No significant lesion Neuro: Normal speech, Strength at 5/5 X4 ext, Normal tone, Sensation intact, grossly intact cranial nerves. Psych/Mental Status: Mental status NL, Mood NL laboratory and microbiology Laboratory Tests 07/07/24 07:03 Test 07/07/24 07:03 Range/Units Serum Glucose 78 74-106 mg/dL Microbiology Date/Time Source Procedure Growth Status 07/04/24 16:00 Nose MRSA Screen - Final Complete 07/03/24 10:04 Voided Urine Urine Culture - Final Complete 07/02/24 20:08 Blood Blood Culture - Preliminary NO GROWTH AFTER 72 HOURS OF INCUBATION. Resulted Labs and/or images reviewed: Labs reviewed by me, Image(s) reviewed by me Problem List/Assessment/Plan Problem List/Assessment/Plan Assessment/Plan Acute hypoxic respiratory failure likely due to Aspiration pneumonia Right lower lobe bacterial gram +/- pneumonia Ruled out pulmonary embolism Chronic respiratory failure secondary to COPD Possible COPD exacerbation - Patient is on 2 L oxygen with saturation 94% - Elevated D- dimer - CT Angio revealed no evidence of pulmonary embolism, bilateral lower lobe consolidation which may reflect pneumonia, multiple pulmonary nodules suspicious for metastatic disease and dilated main pulmonary artery possible pulmonary arterial hypertension. - chest xray revealed similar-appearing small right pleural effusion with overlying airspace consolidations. Atelectasis and possible developing consolidation in the left lung base, new or more conspicuous compared to the prior exam. - Duoneb with albuterol and ipratropium q.6 hours - Prednisolone 40 mg po daily - IV lasix 20 mg b.i.d - IV Azithromycin 500 mg daily - Doppler scan of the lower extremity excluded the possibility of DVT. - Blood culture revealed no growth in 24 hour. - Incentive spirometry Severe aortic stenosis - Echo on 07/04/24 demonstrated EF 70-75% , grade II diastolic dysfunction, aortic valve area 0.7 cm2 and Peak aortic velocity is estimated at 3.4 m/sec with a mean gradient of 29 mm Hg. - Consulted Cardiology. -cardiology recommended dobutamine stress echo to further assess severity of aortic stenosis whicjh will be performed on monday. Acute diarrhea -start IV fluids at low rate 60 cc/hour to prevent dehydration, consider stopping fluids in 12hrs. 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 - Cortisol normal - CT abdomen with IV contrast revealed Moderate colonic diverticulosis with fluid filled colon, could be diarrhea. Similar bibasilar consolidation with pulmonary nodules to prior CT 07/03/24 Paroxysmal atrial fibrillation with secondary hypercoagulable state -[id number] score 4 - Continue amiodarone 200 mg p.o. b.i.d. and Eliquis 2.5 mg b.i.d. Peptic ulcer disease - EGD on 04/11 revealed large nonhealing ulcer in antrum with [id number] gastritis and postbulbar duodenal stricture. - Protonix 40 mg p.o. daily and sucralfate 1 g b.i.d. Hypertensive heart disease - Hold antihypertensive as BP is on the lower side. Chronic back pain - Percocet 5/325 mg 2 tab q.i.d. daily DVT prophylaxis - Pt is on eliquis Waiting for echo stress test with dobutamine to determine final degree of severity of aortic stenosis and possible need of TAVR. Will be performed on monday. Goals of care discussed with the patient at bedside for 20 minutes, FULL CODE Plan discussed with Dr. Domingo Plan discussed with: Patient, Other Date of Service: Jul 07, 2024 Billing Provider: AGUILAR DOMINGO MD Common Visit Codes: [id number] INP/OBS CARE(HIGH) KISHA CORONA RESIDENT Jul 07, 2024 11:14 AGUILAR DOMINGO MD Jul 07, 2024 20:07
[2024-07-07] MEDS: OXYCODONE W/ ACETAMINOPHEN 5/325MG TABLET PO PRN (21:29)
[2024-07-07] MEDS: LORazepam 0.5 MG TAB PO ONE (22:54)
[2024-07-08] VITALS (16 sets, daily range): BP systolic 98–132; BP diastolic 65–79; PULSE 69–89; RESP 16–20; TEMP 97.5–97.8; O2SAT 95–100
[2024-07-08] MEDS: DOBUTamine 1000MCG/ML 250 ML IV ONE (08:40)
[2024-07-08] MEDS: DOBUTamine 1000MCG/ML 100 ML IV ONE (08:40)
--- NOTE | 2024-07-08 09:09 | DVHPN2 ---
Consult Progress Note Date Seen: Jul 08, 2024 Subjective Review of Systems: CVS:Normal, RESPIRATORY:Normal, NEURO:Normal Objective vital signs Vital Sign Date Time Temp Pulse Resp B/P (MAP) Pulse Ox O2 Delivery O2 Flow Rate FiO2 07/08/24 08:40 112/72 07/08/24 07:08 74 16 100 07/08/24 07:03 Nasal Cannula 2.0 07/08/24 07:03 28 07/08/24 01:00 97.5 97.5 Total Intake and Output 07/07/24 07/07/24 07/08/24 15:00 23:00 07:00 Intake Total 50 ml 250 ml Balance 50 ml 250 ml medications Current Medications Medications Dose Ordered Sig/Fabi Route Start Time Stop Time Status Last Admin Dose Admin Ipratropium [place] 0.5 mg Q6HR NEB 07/03/24 00:00 07/08/24 07:03 0.5 MG Albuterol 2.5 mg Q6HR NEB 07/03/24 00:00 07/08/24 07:03 2.5 MG Apixaban 2.5 mg BID PO 07/02/24 22:00 07/07/24 21:28 2.5 MG Sucralfate 1 gm ACHS PO 07/02/24 22:00 07/08/24 06:31 1 GM Pantoprazole Sodium 40 mg DAILY PO 07/02/24 19:00 07/07/24 09:28 40 MG Magnesium Oxide 400 mg BID PO 07/03/24 22:00 07/07/24 21:28 400 MG Levothyroxine Sodium 50 mcg QAM PO 07/04/24 07:00 07/08/24 06:31 50 MCG Prednisone 40 mg DAILY PO 07/05/24 10:00 07/07/24 09:28 40 MG Azithromycin 250 ml @ 125 mls/hr DAILY IV 07/05/24 10:00 07/07/24 14:30 125 MLS/HR Ondansetron HCl 4 mg Q4HPRN PRN IV 07/04/24 14:30 07/06/24 18:33 4 MG Phenol/Menthol 1 spr Q2HP PRN MT 07/04/24 14:30 Ceftriaxone Sodium 50 ml @ 100 mls/hr DAILY@09 IV 07/05/24 09:00 07/07/24 09:34 100 MLS/HR Acetaminophen 650 mg Q4HP PRN PO 07/05/24 09:15 07/05/24 10:57 650 MG Furosemide 20 mg DAILY IV 07/07/24 10:00 07/07/24 09:34 20 MG Metoprolol Tartrate 12.5 mg BID PO 07/06/24 22:00 07/07/24 22:55 12.5 MG Flecainide Acetate 50 mg Q12HR PO 07/06/24 22:00 07/07/24 09:28 50 MG Sodium Chloride 1,000 ml @ 60 mls/hr [id number] IV 07/06/24 12:45 07/06/24 12:45 60 MLS/HR Oxycodone/ Acetaminophen 1 tab Q6HPRN PRN PO 07/07/24 15:30 07/08/24 06:34 1 TAB Saccharomyces Boulardii 250 mg DAILY PO 07/08/24 10:00 Examination: LUNGS:Abnormal (Diminished), CVS:Abnormal (BLE edema +. Systolic murmur radiating to bilateral carotids and RSB.), NEURO:Normal laboratory and microbiology Laboratory Tests 07/07/24 07:03 Test 07/07/24 07:03 Range/Units Serum Glucose 78 74-106 mg/dL Problem List/Assessment/Plan Problem List/Assessment/Plan Sepsis with bilateral PNA Low-flow low-gradient severe aortic valve stenosis Acute on chronic decompensated HFpEF Paroxysmal atrial fibrillation, stage III, on amiodarone/low-dose Eliquis COPD with O2 dependence and history of tobacco use Peptic ulcer disease status post PRBCs 2 mos ago Thyroid disease Anemia Plan/Recommendation (Dr. Mott) The patient underwent a transthoracic echocardiogram revealing an EF 70-75% with grade 2 diastolic dysfunction. She was also found with severe aortic valve stenosis with an VONNIE estimated at 0.7 cm2, peak aortic velocity estimated at 3.4 ms, a mean gradient of 29 mmHg, and LV stroke volume index estimated at 25 mL/m2. Given low-flow low-gradient, patient she was scheduled for a dobutamine stress echo to further assess severity of aortic stenosis. Given normal LVEF with a hyperdynamic ventricle we recommend further assessment with an aortic valve calcium score as outpatient. Continue low-dose Eliquis and antiarrhythmic therapy with Flecainide therapy. Monitor H&H closely given peptic ulcer with blood transfusions within the last two months. Replete electrolytes as necessary. Follow-up with Dr. Cancino within 1-2 weeks post discharge for further aortic valve assessment. We will sign off at this time. Kindly call if in need to re-consult. Thank you for allowing us to participate in this patient's care. This medical document was created using an electronic medical record system with voice recognition software and computerized dictation system. Although this document has been carefully reviewed, there might still be some phonetic and typographical errors. Occasional wrong-word or ``sound-alike substitutions may have occurred due to the inherent limitations of voice recognition software. These areas are purely typographical due to imperfections of the software programs and do not reflect any compromise in the patient's medical care. Please read the chart carefully and recognize, using context, where these substitutions have occurred. Plan discussed with: Patient, Other Date of Service: Jul 08, 2024 Billing Provider: BELINDA BELCHER Cardiology Common Codes: [id number] INP/OBS CARE (High) BELINDA BELCHER Jul 08, 2024 09:09
[2024-07-08] MEDS: FLORASTOR (S. BOULARDII) 250 MG CAP PO SCH (09:57)
[2024-07-08 10:24] LABS: Hemoglobin 10.6 g/dL (12.2-16.2); White Blood Cell 14.9 10^3/uL (4.4-10.8)
[2024-07-08 10:26] LABS: Hematocrit 32.3 % (36.0-46.0); Mean Corpuscular Hemoglobin 33.5 pg (28.0-32.0); Mean Corpuscular Hgb Conc. 32.7 g/dL (32.0-36.0); Mean Corpuscular Volume 102.5 fL (80.0-100.0); Platelet Count (auto) 679 10^3/uL (140-450); Red Blood Cells 3.15 10^6/uL (4.0-5.20); Red Cell Distribution Width 14.7 % (11.8-14.3)
[2024-07-08 10:53] LABS: Basophils % (manual) 0 (0.0-2.0); Blast Cells 0; Eosinophils % (manual) 0 (0-7); Promyelocytes % 0; Reactive Lymphocytes 0
--- NOTE | 2024-07-08 11:22 | DVHSR ---
APPROVED REPORT ECHOCARDIOGRAM Echocardiogram was performed by auto electrical technician in four stages in quad fashion and compared. Conclusion This is a limited resting echo. The dobutamine stress echo part was canceled as patient's ejection f raction is normal. The study was intended to assess the severity of the aortic valve stenosis. The left ventricle is of normal size and systolic function. Right ventricle is of normal size and systol ic function. The aortic valve leaflets appear to be heavily calcified. Peak velocity is 3.4 m/sec w ith a mean gradient of 27 mm Hg. Aortic valve area is estimated at 0.7 cm2. Dimensionless index is 0.33. No significant insufficiency. No pericardial effusion. Impressions: Normal biventricular size and systolic function. Heavily calcified aortic valve with possible low-flow low gradient severe aortic valve stenosis with a preserved ejection fraction. Consider further evaluation with cardiac CT to assess the aortic valv e calcium score.
[2024-07-08 11:36] LABS: Band Neutrophils % (manual) 2; Lymphocytes % (manual) 19 (10.0-50.0); Metamyelocytes % 2; Monocytes % (manual) 2 (0-12); Myelocytes % 1
[2024-07-08 11:37] LABS: Macrocytosis Slight; Platelet Estimate Increased
[2024-07-08] MEDS: FUROSEMIDE 40 MG/4 ML VIAL IV ONE (15:25)
[2024-07-08] MEDS ORDERED: FLEC1TAB PO (16:29)
[2024-07-08] MEDS ORDERED: LEVO25TA6 PO (16:29)
--- NOTE | 2024-07-08 17:01 | DVHDSRES ---
Discharge Summary Date of Admission Resident Creating Document: KISHA CORONA RESIDENT Jul 02, 2024 at 18:13 Date of Discharge: Jul 08, 2024 Admitting Diagnosis Acute hypoxic respiratory failure likely due to aspiration pneumonia Right lower lobe bacterial gram +/- pneumonia Wounds: No wound was present Labs/Diagnostic Data: Laboratory Results Test 07/08/24 09:35 07/07/24 07:03 07/05/24 08:00 07/04/24 06:29 White Blood Count 14.9 10^3/uL (4.4-10.8) Red Blood Count 3.15 10^6/uL (4.0-5.20) Hemoglobin 10.6 g/dL (12.2-16.2) Hematocrit 32.3 % (36.0-46.0) Mean Corpuscular Volume 102.5 fL (80.0-100.0) Mean Corpuscular Hemoglobin 33.5 pg (28.0-32.0) Mean Corpuscular Hemoglobin Concent 32.7 g/dL (32.0-36.0) Red Cell Distribution Width 14.7 % (11.8-14.3) Platelet Count 679 10^3/uL (140-450) Mean Platelet Volume 6.3 fL (6.9-10.8) Neutrophils (%) (Auto) % (37.0-80.0) Lymphocytes (%) (Auto) % (10.0-50.0) Monocytes (%) (Auto) % (0.0-12.0) Basophils (%) (Auto) % (0.0-2.0) Neutrophils # (Auto) 10 ^3/uL (1.6-8.6) Lymphocytes # (Auto) 10 ^3/uL (0.4-5.4) Monocytes # (Auto) 10 ^3/uL (0-1.3) Differential Total Cells Counted 100.0 (100) Neutrophils % (Manual) 74 (37.0-80.0) Band Neutrophils % (Manual) 2 Lymphocytes % (Manual) 19 (10.0-50.0) Monocytes % (Manual) 2 (0-12) Eosinophils % (Manual) 0 (0-7) Basophils % (Manual) 0 (0.0-2.0) Metamyelocytes % (manual) 2 Myelocytes % (Manual) 1 Promyelocytes % (Manual) 0 Blast Cells % (Manual) 0 Reactive Lymphocytes 0 Platelet Estimate Increased Macrocytosis Slight Magnesium Level 1.6 mg/dL (1.6-2.6) Hypochromasia (manual) Slight Sodium Level 134 mmol/L (136-145) Potassium Level 4.0 mmol/L (3.5-5.1) Chloride Level 95 mmol/L (98-107) Carbon Dioxide Level 34 mmol/L (20-31) Anion Gap 5 (5-15) Blood Urea Nitrogen 12 mg/dL (9-23) Creatinine 0.52 mg/dL (0.550-1.02) Glomerular Filtration Rate Calc 96 mL/min (>90) BUN/Creatinine Ratio 23.1 (10.0-20.0) Serum Glucose 78 mg/dL (74-106) Calcium Level 9.5 mg/dL (8.7-10.4) Total Bilirubin 0.2 mg/dL (0.2-1.0) Aspartate Amino Transferase (AST) 15 U/L (13-40) Alanine Aminotransferase (ALT) 14 U/L (7-40) Alkaline Phosphatase 74 U/L (46-116) Total Protein 4.9 g/dL (5.7-8.2) Albumin 3.1 g/dL (3.2-4.8) Cortisol AM Sample 5.89 ug/dL (5.27-22.45) Large Platelets Few Test 07/03/24 10:04 07/03/24 07:51 07/02/24 20:08 07/02/24 15:18 Urine Color Yellow (Yellow) Urine Clarity Clear (Clear) Urine pH 7.0 (5.0-9.0) Urine Specific [place] 1.050 (1.001-1.035) Urine Protein Trace (Negative) Urine Ketones Trace (Negative) Urine Blood Negative /uL (Negative) Urine Nitrite Negative (Negative) Urine Bilirubin Negative (Negative) Urine Urobilinogen Normal mg/dL (Negative) Urine Leukocyte Esterase Negative /uL (Negative) Urine RBC 1 /hpf (0 - 4) Urine WBC <1 /hpf (0 - 5) Urine Squamous Epithelial Cells Few /hpf (<5) Urine Bacteria None seen /hpf (None Seen) Urine Osmolality 579 mOsm/kg Urine Sodium 23 mmol/L (40-220) Urine Glucose Normal mg/dL (Normal) Thyroid Stimulating Hormone (TSH) 13.83 uIU/mL (0.55-4.78) Free Thyroxine (T4) Calculated 0.57 ng/dL (0.89-1.76) Free Triiodothyronine (T3) pg/mL 0.55 pg/mL (2.3-4.2) Lactic Acid Level 1.1 mmol/L (0.4-2.0) Eosinophils (%) (Auto) 0.1 % (0.0-7.0) Eosinophils # (Auto) 0 10 ^3/uL (0-0.8) Basophils # (Auto) 0 10 ^3/uL (0-0.2) Nucleated Red Blood Cells 0.0 % Anisocytosis (manual) Slight D-Dimer, Quantitative 3.84 mg/L FEU (0.0-0.49) Serum Osmolality 269 mOsm/kg (278-298) Troponin I High Sensitivity 7 ng/L (</=34) B-Type Natriuretic Peptide 221.70 pg/mL (0-100) Other Laboratory Tests 07/08/24 09:35 07/07/24 07:03 Brief Hx & Hospital Course: This is a 78-year-old female with a past medical history of hypertension, COPD on home oxygen 2.5 L, hyperlipidemia, atrial fibrillation, peptic ulcer disease, chronic back pain presented to the ED with a chief complaint of shortness of breath and productive cough with yellowish brown sputum for last 2 days prior to this admission. According to the son the patient was was gasping, shallow breathing and about to collapse that prompted this visit. Hospital course : Initially patient was on 4 L oxygen with saturation 94% and titrated down to 2 L. D-dimer was high and CT angio revealed no evidence of pulmonary embolism, bilateral lower lobe consolidation which may reflect pneumonia, multiple pulmonary nodules suspicious for metastatic disease and dilated main pulmonary artery possible pulmonary arterial hypertension.chest xray revealed similar-appearing small right pleural effusion with overlying airspace consolidations. Atelectasis and possible developing consolidation in the left lung base, new or more conspicuous compared to the prior exam. initially treated with DuoNeb with albuterol and ipratropium q.6 hours, IV methylprednisolone 40 mg b.i.d. for 3 days followed by prednisolone 40 mg p.o. daily, IV Lasix 20 mg b.i.d., IV vancomycin as per pharmacy and IV Zosyn 3.375 mg Q 8 hours for 3 days followed by IV azithromycin 500 mg daily and IV ceftriaxone 1 g daily for 4 days. Echo on 07/04/24 demonstrated EF 70-75% , grade II diastolic dysfunction, aortic valve area 0.7 cm2 and Peak aortic velocity is estimated at 3.4 m/sec with a mean gradient of 29 mm Hg. cardiology recommended dobutamine stress echo to further assess severity of aortic stenosis. The dobutamine stress echo part was canceled as patient's ejection fraction is normal and cardiology recommended cardiac CT to assess the aortic valve calcium score in outpatient. During the hospital stay the patient developed hyponatremia likely secondary to SIADH and and T3-T4 were low and cortical cortisol a.m. was normal. Increased levothyroxine to 50 mcg q.[address] abdomen with IV contrast excluded the possibility of intra-abdominal malignancy. Cardiology discontinued amiodarone to flecainide 50 mg b.i.d. and advised to continue Eliquis 2.5 mg b.i.d. Discharge plan was discussed with the patient and all questions were answered patient is being discharged to home. 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 Follow up : PCP in 1 week Outpatient Cardiology in 1 to 2 weeks. Consults/Reason for consult Cardiology was consulted Operations or Procedures CTA Chest with intravenous contrast INDICATION: To rule out PE COMPARISON: Chest radiograph performed 07/02/2024. TECHNIQUE: Multidetector spiral CTA of the chest was performed of the chest with cc of intravenous contrast. PULMONARY ANGIOGRAPHY PROTOCOL was utilized using a bolus-tracking technique centered on the main pulmonary artery. Axial, coronal and sagittal multiplanar and MIP reformats were performed. Radiation Dose : 1. Chest: CTDI volume is 20.72 mGy. Dose-length product is 493.67 mGy*cm The dose indicators for CT are the volume Computed Tomography (CT) Dose Index (CTDIvol) and the Dose Length Product (DLP), and are measured in units of mGy and mGy-cm, respectively. These indicators are not patient dose, but values generated from the CT scanner acquisition factors. The report includes radiation exposure data for exposures received during this examination. FINDINGS: Pulmonary artery: No central, lobar or proximal segmental pulmonary embolus. Dilated main pulmonary artery which can be seen in pulmonary arterial hypertension. Lower neck: The thyroid is unremarkable. Lungs: Patchy bilateral lower lobe consolidation. Several pulmonary nodules for example in the right lower lobe measuring 1.6 cm noted. Emphysema. There is a spiculated nodule in the right apex measuring 1.5 x 1.5 cm. Central airways: Patent. Pleura: No pneumothorax. No pleural effusions. Heart/Vascular Structures: The heart is normal in size. Coronary artery calcifications. No pericardial effusion. Thoracic aorta is normal in caliber. No aneurysm or dissection. Lymph Nodes: No mediastinal or hilar lymphadenopathy. Esophagus:Grossly unremarkable. Musculoskeletal: Unremarkable. Body wall: T11 compression deformity of indeterminate age. Upper abdomen: Unremarkable. Bilateral calcified breast implants. Left breast soft tissue thickening versus mass. IMPRESSION: 1. No evidence of pulmonary embolism. 2. Bilateral lower lobe consolidations which may reflect pneumonia. 3. Multiple pulmonary nodules suspicious for metastatic disease. 4. Left breast soft tissue thickening versus mass. 5. Dilated main pulmonary artery which can be seen in pulmonary arterial hypertension. 6. Coronary artery calcifications. CLINICAL HISTORY: To rule out DVT, shortness of breath TECHNIQUE: Color and duplex doppler imaging of the bilateral lower extremity veins was performed. Vessel compression if possible was also performed. WID: COMPARISON: None FINDINGS: Right Lower Extremity: Right common femoral vein: Normal compressibility and flow. Right femoral vein: Normal compressibility and flow. Right popliteal vein: Normal compressibility and flow. Proximal calf veins are normally compressible. Left Lower Extremity: Left common femoral vein: Normal compressibility and flow. Left femoral vein: Normal compressibility and flow. Left popliteal vein: Normal compressibility and flow. Proximal calf veins are normally compressible. IMPRESSION: NO SONOGRAPHIC EVIDENCE FOR DEEP VENOUS THROMBOSIS IN THE BILATERAL LOWER EXTREMITY VEINS. CT CT AB PEL WITH IV CON ONLY INDICATION: R/O MALIGNANCY EXAM DATE: 07/05/2024 08:40 AM COMPARISON: CT CT AB PEL WITH IV CON ONLY on DOS: 12/08/22 RADIATION DOSE: CTDIvol: 6.77 mGy, DLP: 296.0 mGy*cm PROCEDURE: Helical CT images were obtained of the abdomen and pelvis with IV contrast Sagittal and coronal reconstructions are provided. ORAL CONTRAST: None. ADDITIONAL IMAGES / REFORMATS: None All CT scans at this medical facility are performed using dose modulation techniques as appropriate to a performed exam including the following: Automated exposure control was utilized; adjustment of the MA and/or KV according to patient size; and use of iterative reconstruction technique. FINDINGS: LUNG BASE: Similar bibasilar consolidation with pulmonary nodules to prior CT 07/03/24. LIVER: Normal. GALLBLADDER AND BILIARY TREE: Cholecystectomy clips. No intra- or extrahepatic biliary ductal dilation. PANCREAS: Normal. SPLEEN: Normal. BOWEL: Moderate colonic diverticulosis with fluid filled colon, could be diarrhea. ADRENALS: Normal. KIDNEYS AND URETER: Metallic embolic material is seen adjacent to the right kidney. BLADDER: Normal. REPRODUCTIVE ORGANS: Normal. LYMPH NODES:No lymphadenopathy. PERITONEUM: No ascites or free air. No other fluid collection. VESSELS: Scattered atherosclerotic calcifications are noted. RETROPERITONEUM: Normal. ABDOMINAL WALL: Normal. BONES: Scattered osseous degenerative changes are noted. Left hip arthroplasty is noted. IMPRESSION: Moderate colonic diverticulosis with fluid filled colon, could be diarrhea. Similar bibasilar consolidation with pulmonary nodules to prior CT 07/03/24. 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 Follow up with outpatient Cardiology Ct scan with aortic valve calcium score to further assesment of severity of aortic valve stenosis. Medications: Levothyroxine 50mcg daily Flecainide 50 mg 12 hrly Discharge Statement: "Patient was advised to return to the ER or call 911 if any headaches, dizziness, shortness of breath, chest pain, abdominal pain, bleeding, fevers, or worsening of medical condition. Patient was counseled about treatment plan, medications, possible side effects, patientverbalized understanding. All questions were answered to the best of my ability. This discharge took greater then 30 minutes in planning, reviewing documentation, counseling the patient, and discussing with other team members." ASSESSMENT ASSESSMENT Assessment Possible SIRS secondary to aspiration pneumonia/ gram positive or gram negative Sepsis ruled out Acute hypoxic respiratory failure likely due to Aspiration pneumonia Right lower lobe bacterial gram +/gram - pneumonia Ruled out pulmonary embolism Chronic respiratory failure secondary to COPD Possible Pulmonary arterial hypertension type 3 secondary to COPD Possible COPD exacerbation Severe aortic stenosis Acute diarrhea resolved Hyponatremia likely secondary to 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
[2024-07-08] MEDS: SORE THROAT SPRAY 6OZ BOTTLE MT PRN (22:10)
[2024-07-09] VITALS (12 sets, daily range): BP systolic 105–127; BP diastolic 60–81; PULSE 82–91; RESP 17–22; TEMP 97.5–98; O2SAT 95–99
--- NOTE | 2024-07-09 16:49 | DVHPNRES ---
Progress Note Date Seen: Jul 09, 2024 Resident Creating Document: KISHA CORONA RESIDENT Has the PT tested + for MRSA If YES, has PT been informed?: No Medical Necessity Reason Pt with a Central, PICC or Fol: No Subjective Review of Systems This is a 78-year-old female with a past medical history of hypertension, COPD on home oxygen 2.5 L, hyperlipidemia, atrial fibrillation, peptic ulcer disease, chronic back pain presented to the ED with a chief complaint of shortness of breath and productive cough with yellowish brown sputum for last 2 days prior to this admission. According to the son the patient was was gasping, shallow breathing and about to collapse that prompted this visit. Patient was seen and examined at bedside. The patient is currently on 2 L of oxygen through nasal cannula which is at her baseline. Patient was discharged yesterday and was staying in the hospital 1 more night because of the confirmation of resume home health with bedside commode, and walker. Objective vital signs Vital Sign Date Time Temp Pulse Resp B/P (MAP) Pulse Ox O2 Delivery O2 Flow Rate FiO2 07/09/24 11:22 84 17 99 07/09/24 11:16 Nasal Cannula 2.0 07/09/24 11:16 28 07/09/24 10:28 105/65 07/09/24 09:00 97.9 97.9 Total Intake and Output 07/08/24 07/08/24 07/09/24 15:00 23:00 07:00 Intake Total 300 ml 1000 ml Balance 300 ml 1000 ml medications Current Medications Medications Dose Ordered Sig/Fabi Route Start Time Stop Time Status Last Admin Dose Admin Ipratropium [place] 0.5 mg Q6HR NEB 07/03/24 00:00 07/09/24 11:16 0.5 MG Albuterol 2.5 mg Q6HR NEB 07/03/24 00:00 07/09/24 11:16 2.5 MG Apixaban 2.5 mg BID PO 07/02/24 22:00 07/09/24 10:27 2.5 MG Sucralfate 1 gm ACHS PO 07/02/24 22:00 07/09/24 12:43 1 GM Pantoprazole Sodium 40 mg DAILY PO 07/02/24 19:00 07/09/24 10:27 40 MG Magnesium Oxide 400 mg BID PO 07/03/24 22:00 07/09/24 10:28 400 MG Levothyroxine Sodium 50 mcg QAM PO 07/04/24 07:00 07/09/24 06:03 50 MCG Prednisone 40 mg DAILY PO 07/05/24 10:00 07/09/24 10:27 40 MG Azithromycin 250 ml @ 125 mls/hr DAILY IV 07/05/24 10:00 07/09/24 10:00 125 MLS/HR Ondansetron HCl 4 mg Q4HPRN PRN IV 07/04/24 14:30 07/09/24 13:44 4 MG Phenol/Menthol 1 spr Q2HP PRN MT 07/04/24 14:30 07/09/24 12:43 1 SPR Ceftriaxone Sodium 50 ml @ 100 mls/hr DAILY@09 IV 07/05/24 09:00 07/09/24 10:26 100 MLS/HR Acetaminophen 650 mg Q4HP PRN PO 07/05/24 09:15 07/08/24 20:11 650 MG Furosemide 20 mg DAILY IV 07/07/24 10:00 07/09/24 10:27 20 MG Metoprolol Tartrate 12.5 mg BID PO 07/06/24 22:00 07/09/24 10:28 12.5 MG Flecainide Acetate 50 mg Q12HR PO 07/06/24 22:00 07/09/24 10:27 50 MG Sodium Chloride 1,000 ml @ 60 mls/hr [id number] IV 07/06/24 12:45 07/09/24 07:25 60 MLS/HR Oxycodone/ Acetaminophen 1 tab Q6HPRN PRN PO 07/07/24 15:30 07/09/24 07:44 1 TAB Saccharomyces Boulardii 250 mg DAILY PO 07/08/24 10:00 07/09/24 10:27 250 MG Examination Physical examination: General Appearance: Alert, Oriented X3, Cooperative, No acute distress HEENT: Atraumatic, PERRLA, EOMI, Mucous membrane moist/pink Respiratory: Clear to auscultation, Normal air movement Cardiovascular: Regular rate, Normal S1, Normal S2, No murmurs, no chest wall tenderness Abdominal: Normal bowel sounds, Soft, No tenderness, No hepatospenomegaly, No masses Extremities: Edema+, No clubbing, No cyanosis, Normal pulses, No tenderness/swelling Skin: No rashes, No breakdown, No significant lesion Neuro: Normal speech, Strength at 5/5 X4 ext, Normal tone, Sensation intact, grossly intact cranial nerves. Psych/Mental Status: Mental status NL, Mood NL laboratory and microbiology Laboratory Tests 07/08/24 09:35 07/07/24 07:03 Test 07/07/24 07:03 Range/Units Serum Glucose 78 74-106 mg/dL Microbiology Date/Time Source Procedure Growth Status 07/04/24 16:00 Nose MRSA Screen - Final Complete 07/03/24 10:04 Voided Urine Urine Culture - Final Complete 07/02/24 20:08 Blood Blood Culture - Final NO GROWTH AFTER 5 DAYS OF INCUBATION. Complete Labs and/or images reviewed: Labs reviewed by me, Image(s) reviewed by me Problem List/Assessment/Plan Problem List/Assessment/Plan Assessment/Plan Acute hypoxic respiratory failure likely due to Aspiration pneumonia Right lower lobe bacterial gram +/- pneumonia Ruled out pulmonary embolism Chronic respiratory failure secondary to COPD Possible COPD exacerbation - Patient is on 2 L oxygen with saturation 94% - Elevated D- dimer - CT Angio revealed no evidence of pulmonary embolism, bilateral lower lobe consolidation which may reflect pneumonia, multiple pulmonary nodules suspicious for metastatic disease and dilated main pulmonary artery possible pulmonary arterial hypertension. - chest xray revealed similar-appearing small right pleural effusion with overlying airspace consolidations. Atelectasis and possible developing consolidation in the left lung base, new or more conspicuous compared to the prior exam. - Duoneb with albuterol and ipratropium q.6 hours - Prednisolone 40 mg po daily - IV lasix 20 mg b.i.d - IV Azithromycin 500 mg daily - Doppler scan of the lower extremity excluded the possibility of DVT. - Blood culture revealed no growth in 24 hour. - Incentive spirometry Severe aortic stenosis - Echo on 07/04/24 demonstrated EF 70-75% , grade II diastolic dysfunction, aortic valve area 0.7 cm2 and Peak aortic velocity is estimated at 3.4 m/sec with a mean gradient of 29 mm Hg. - Cardiology on board -cardiology recommended cardiac CT to assess the aortic valve calcium score. 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 - Cortisol normal - CT abdomen with IV contrast revealed Moderate colonic diverticulosis with fluid filled colon, could be diarrhea. Similar bibasilar consolidation with pulmonary nodules to prior CT 07/03/24 Paroxysmal atrial fibrillation with secondary hypercoagulable state -[id number] score 4 - Continue amiodarone 200 mg p.o. b.i.d. and Eliquis 2.5 mg b.i.d. Peptic ulcer disease - EGD on 04/11 revealed large nonhealing ulcer in antrum with [id number] gastritis and postbulbar duodenal stricture. - Protonix 40 mg p.o. daily and sucralfate 1 g b.i.d. Hypertensive heart disease - Hold antihypertensive as BP is on the lower side. Chronic back pain - Percocet 5/325 mg 2 tab q.i.d. daily DVT prophylaxis - Pt is on eliquis Goals of care discussed with the patient at bedside for 20 minutes, FULL CODE Plan discussed with Plan discussed with: Patient, Other My Orders My Orders Orders - KISHA CORONA Procedure Category Date Status Time * Publicity Expert CONS 07/09/24 Transmitted Consult 10:26 * Publicity Expert CONS 07/09/24 Transmitted Consult Date of Service: Jul 09, 2024 Billing Provider: ARNIE MANJARREZ MD Common Visit Codes: [id number] INP/OBS CARE(HIGH) KISHA CORONA Jul 09, 2024 16:49 ARNIE MANJARREZ MD Jul 11, 2024 13:00
== END 2024-07-09 16:56 | disposition home health service (06) | DRG 177 ==
LOC: ER 14:18 → OVERFLOW 18:13 → EAST 07-03 21:25 → TELE-EAST 07-06 11:52
PROVIDERS: ADMIT Student in an Organized Health Care Education/Training Program; ATTEND Student in an Organized Health Care Education/Training Program
PROC: 05HC33Z Insertion of Infusion Device into Left Basilic Vein, Percutaneous Approach (ICD-10-PCS; principal; 2024-07-07)
PROC: B54NZZA Ultrasonography of Left Upper Extremity Veins, Guidance (ICD-10-PCS; 2024-07-07)
DX: J15.69 Pneumonia due to other Gram-negative bacteria (principal); I50.33 Acute on chronic diastolic (congestive) heart failure; J96.21 Acute and chronic respiratory failure with hypoxia; J44.0 Chronic obstructive pulmonary disease with (acute) lower respiratory infection; J44.1 Chronic obstructive pulmonary disease with (acute) exacerbation; D68.69 Other thrombophilia; E22.2 Syndrome of inappropriate secretion of antidiuretic hormone; R65.10 Systemic inflammatory response syndrome (SIRS) of non-infectious origin without acute organ dysfunction; J69.0 Pneumonitis due to inhalation of food and vomit; J15.9 Unspecified bacterial pneumonia; I11.0 Hypertensive heart disease with heart failure; I48.0 Paroxysmal atrial fibrillation; I35.0 Nonrheumatic aortic (valve) stenosis; D64.9 Anemia, unspecified; K21.9 Gastro-esophageal reflux disease without esophagitis; E78.5 Hyperlipidemia, unspecified; G89.29 Other chronic pain; E03.9 Hypothyroidism, unspecified; I27.21 Secondary pulmonary arterial hypertension; Z99.81 Dependence on supplemental oxygen; Z90.49 Acquired absence of other specified parts of digestive tract; Z87.891 Personal history of nicotine dependence; Z82.49 Family history of ischemic heart disease and other diseases of the circulatory system; Z87.11 Personal history of peptic ulcer disease; Z79.01 Long term (current) use of anticoagulants; Z80.0 Family history of malignant neoplasm of digestive organs; Z82.0 Family history of epilepsy and other diseases of the nervous system
CPT/HCPCS: 36415; 71045; 71275; 74177; 80048; 80053; 81001; 82533; 83605; 83735; 83880; 83930; 83935; 84300; 84439; 84443; 84481; 84484; 85007; 85025; 85027; 85379; 87040; 87081; 87086; 92610; 93005; 93306; 93350; 93970; 94640; 97110; 97116; 97163; 97530; 99291; 99292; G0378; J1100; J2250; J2405; J2543; J2704; J3490

== ENCOUNTER 2025-02-28 13:26 | Emergency (ER) | payer BC, MEDICAID ==
[~2025-02-28] VITALS: Ht 157.5 cm; Wt 55.0 kg
[~2025-02-28 13:26] MED LIST changes: +FLEC1TAB PO
[2025-02-28] MEDS ORDERED: SODIUM CHLORIDE 0.9% 1,000 ML IV ONE (14:45)
[2025-02-28] MEDS ORDERED: methylPREDNISolone SOD SUCC 40 MG/ML VL IV ONE (14:45)
[2025-02-28] MEDS ORDERED: AZITHROMYCIN 500MG/ 250ML 250 ML IV ONE (14:45)
--- NOTE | 2025-02-28 14:46 | ED.PDOC ---
SOB-HPI HPI Comments Since 79-year-old female with past medical history of COPD (on home oxygen, 2 L during the night), paroxysmal AFib, hypothyroidism, dyslipidemia, hypertension, severe aortic stenosis, ulcerative colitis, GERD came to the hospital due to shortness of breath since 5 days. She also reports of cough, sputum, nausea, vomiting, lightheadedness, palpitation, generalized weakness and decreased oral intake. She also reports of multiple fall recently. She denies chest pain, loss of consciousness or any recent bowel/bladder habit changes. 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 Hx Family History Family History: Reviewed,noncontributory to illness, Family hx of heart sigrid Social History Smoker: Non-Smoker, Quit Greater Than 1 Year Alcohol: Denies ETOH Use Drugs: Denies Drug Use Lives In: Home Constitutional: denies: chills, diaphoresis, fatigue, fever, malaise, sweats, weakness, others EENTM: denies: blurred vision, double vision, ear bleeding, ear discharge, ear drainage, ear pain, ear ringing, eye pain, eye redness, hearing loss, mouth pain, mouth swelling, nasal discharge, nose bleeding, nose congestion, nose pain, photophobia, tearing, throat pain, throat swelling, voice changes, others Respiratory: reports: cough, SOB at rest, shortness of breath, SOB with excertion; denies: hemoptysis, orthopnea, stridor, wheezing, others Cardiovascular: denies: chest pain, dizzy spells, diaphoresis, Dyspnea on exertion, edema, irregular heart beat, left arm pain, lightheadedness, palpitations, PND, syncope, others Gastrointestinal: reports: nausea, vomiting; denies: abdomen distended, abdominal pain, blood streaked bowels, constipated, diarrhea, dysphagia, difficulty swallowing, hematemesis, melena, poor appetite, poor fluid intake, rectal bleeding, rectal pain, others Genitourinary: denies: abnormal vagina bleeding, burning, dyspareunia, dysuria, flank pain, frequency, hematuria, incontinence, pain, , vagina discharge, urgency, others Neurological: reports: headache; denies: dizziness, fainting, left sided numbness, left sided weakness, numbness, paresthesia, pre-existing deficit, right sided numbness, right sided weakness, seizure, speech problems, tingling, tremors, weakness, others Musculoskeletal: denies: back pain, gout, joint pain, joint swelling, muscle pain, muscle stiffness, neck pain, others Integumetry: denies: bruises, change in color, change in hair/nails, dryness, laceration, lesions, lumps, rash, wounds, others Allergic/Immunocompromised: denies: Difficulty Healing, Frequent Infections, Hives, Itching, others Hematologic/Lymphatic: denies: anemia, blood clots, easy bleeding, easy bruising, swollen glands, others Endocrine: denies: excessive hunger, excessive sweating, excessive thirst, excessive urination, flushing, intolerance to cold, intolerance to heat, unexplained weight gain, unexplained weight loss, others Psychiatric: denies: anxiety, bipolar disorder, depression, hopeless, panic disorder, schizophrenia, sleepless, suicidal, others Physical Exam General Appearance: No Apparent Distress, Normal HEENT: Normal ENT Inspection, Pharynx Normal, TMs Normal Neck: Full Range of Motion, Non-Tender, Normal, Normal Inspection Respiratory: Respiratory Distress, Rhonchi Cardiovascular: No Edema, No JVD, No Murmur, No Gallop, Normal Peripheral Pulses, Regular Rate/Rhythm Breast Exam: Deferred Gastrointestinal: No Organomegaly, Non Tender, No Pulsatile Mass, Normal Bowel Sounds, Soft Genitalia: Deferred Pelvic: Deferred Rectal: Deferred Extremities: No calf tenderness, Normal capillary refill, Normal inspection, Normal range of motion, Non-tender, No pedal edema Musculoskeletal : Apperance: Normal Neurologic: Alert, lumber trimmer II-XII nml as Tested, No Motor Deficits, Normal Affect, Normal Mood, No Sensory Deficits Cerebellar Function: Normal Reflexes: Normal Skin: Dry, Normal Color, Warm Lymphatic: No Adenopathy Was a procedure done? Was a procedure done?: No Differential Dx Differential Diagnosis: Bronchitis, CHF, COPD, Pneumonia, URI X-Ray, Labs, Meds, VS Vital Signs Date Time Temp Pulse Resp B/P (MAP) Pulse Ox O2 Delivery O2 Flow Rate FiO2 02/28/25 13:40 103 02/28/25 13:28 100 17 90/70 95 Lab Test 02/28/25 14:53 Range/Units White Blood Count 12.9 H 4.4-10.8 10^3/uL Red Blood Count 3.86 L 4.0-5.20 10^6/uL Hemoglobin 12.3 12.2-16.2 g/dL Hematocrit 36.3 36.0-46.0 % Mean Corpuscular Volume 94.1 80.0-100.0 fL Mean Corpuscular Hemoglobin 31.9 28.0-32.0 pg Mean Corpuscular Hemoglobin Concent 33.9 32.0-36.0 g/dL Red Cell Distribution Width 14.3 11.8-14.3 % Platelet Count 452 H 140-450 10^3/uL Mean Platelet Volume 7.2 6.9-10.8 fL Neutrophils (%) (Auto) 86.9 H 37.0-80.0 % Lymphocytes (%) (Auto) 7.9 L 10.0-50.0 % Monocytes (%) (Auto) 4.4 0.0-12.0 % Eosinophils (%) (Auto) 0.3 0.0-7.0 % Basophils (%) (Auto) 0.5 0.0-2.0 % Neutrophils # (Auto) 11.3 H 1.6-8.6 10 ^3/uL Lymphocytes # (Auto) 1.0 0.4-5.4 10 ^3/uL Monocytes # (Auto) 0.6 0-1.3 10 ^3/uL Eosinophils # (Auto) 0 0-0.8 10 ^3/uL Basophils # (Auto) 0.1 0-0.2 10 ^3/uL Nucleated Red Blood Cells 0.1 % Sodium Level 136 136-145 mmol/L Potassium Level 3.7 3.5-5.1 mmol/L Chloride Level 98 98-107 mmol/L Carbon Dioxide Level 26 20-31 mmol/L Anion Gap 12 5-15 Blood Urea Nitrogen 35 H 9-23 mg/dL Creatinine 0.84 0.550-1.02 mg/dL Glomerular Filtration Rate Calc 72 >90 mL/min BUN/Creatinine Ratio 41.7 H 10.0-20.0 Serum Glucose 96 74-106 mg/dL Calcium Level 9.5 8.7-10.4 mg/dL Magnesium Level 1.1 L 1.6-2.6 mg/dL Total Bilirubin 0.2 0.2-1.0 mg/dL Aspartate Amino Transferase (AST) 56 H 13-40 U/L Alanine Aminotransferase (ALT) 38 7-40 U/L Alkaline Phosphatase 99 46-116 U/L Troponin I High Sensitivity 7 </=34 ng/L Total Protein 6.3 5.7-8.2 g/dL Albumin 4.0 3.2-4.8 g/dL Current Medications Medications (Trade) Dose Ordered Sig/Fabi Route Start Time Stop Time Status Last Admin Ipratropium [place] (Atrovent Medneb) 0.5 mg ONCE ONCE NEB 02/28/25 14:45 02/28/25 14:46 DC 02/28/25 15:00 Albuterol (Ventolin Medneb) 2.5 mg ONCE ONCE NEB 02/28/25 14:45 02/28/25 14:46 DC 02/28/25 15:00 Time of 1ST Reevaluation: 18:10 Reevaluation 1ST: Improved Patient Education/Counseling: Diagnosis, Treatment, Prognosis, Need For Follow Up Family Education/Counseling: Diagnosis, Treatment, Prognosis, Need For Follow Up Comments Patient was brought to the hospital due to shortness of breath. Patient was vitally stable. Patient was given IV steroid Patient was given ipratropium and albuterol Patient was given IV fluid On subsequent checkup, worsened was feeling better The patient was advised to follow up with the PCP, Cardiology and pulmonology. SEPSIS Sepsis Screen Date sepsis recognized/suspect: Feb 28, 2025 Time Sepsis recognized/suspect: 1328 Recent Procedure: No On Antibiotic Therapy: No Respiratory Rate >20: No Heart Rate >90: Yes Temp<36 C (96.8 F) or >38.3 C: No SBP <90 or MAP <65 mmHG: No New Acute Mental Status Change: No Is the patient on CPAP, BIPAP,: No Physician Orders Electrocardigram (02/28/25 13:33) Electrocardigram (02/28/25 14:33) Electrocardigram (02/28/25 16:33) Chest Xray 1 View (02/28/25 14:38) Rapid Influenza A&B (02/28/25 14:38) Covid19 Antigen [place] (02/28/25 ) Vital Signs Date Time Temp Pulse Resp B/P (MAP) Pulse Ox O2 Delivery O2 Flow Rate FiO2 02/28/25 13:40 103 02/28/25 13:28 100 17 90/70 95 Laboratory Tests Test 02/28/25 14:53 White Blood Count 12.9 10^3/uL (4.4-10.8) H Medications Medications Dose Ordered Sig/Fabi Route Start Time Stop Time Status Last Admin Dose Admin Albuterol 2.5 mg ONCE ONCE NEB 02/28/25 14:45 02/28/25 14:46 DC 02/28/25 15:00 Ipratropium [place] 0.5 mg ONCE ONCE NEB 02/28/25 14:45 02/28/25 14:46 DC 02/28/25 15:00 Departure 1 Departure Time of Disposition: 18:10 Impression: Primary Impression: COPD exacerbation Disposition: 01 HOME / SELF CARE / HOMELESS Condition: Good Critical Care Note Critical Care Time?: Yes (45 min-critical care time only) Stability Stability form required: No Heart Score Heart Score: Heart Score Response (Comments) Value History Slightly Suspicious 0 EKG Normal 0 Age >65 2 Risk Factors >3 or Hx ASHD 2 Troponin N/A 0 Total 4 ANTHONY DEWEY Feb 28, 2025 14:46
[2025-02-28] MEDS: ALBUTEROL SULF 2.5 MG/0.5ML(0.5%) NEB SOLN NEB ONE (15:00)
[2025-02-28] MEDS: IPRATROPIUM BROM 0.5 MG/2.5ML INH SOL NEB ONE (15:00)
[2025-02-28 15:03] LABS: Hemoglobin 12.3 g/dL (12.2-16.2)
[2025-02-28 15:05] LABS: Hematocrit 36.3 % (36.0-46.0); Mean Corpuscular Hemoglobin 31.9 pg (28.0-32.0); Mean Corpuscular Volume 94.1 fL (80.0-100.0); Nucleated Red Blood Cells % 0.1 %
--- NOTE | 2025-02-28 15:21 | DVH ---
CHEST RADIOGRAPH Indication: panumonia Technique: XY CHEST XRAY 1 VIEW Comparison: 07/02/2024 FINDINGS: The cardiac silhouette is unremarkable. The lungs demonstrate bilateral interstitial airspace opaciti es. Aortic atherosclerotic disease. 9 mm right midlung nodular density. The pulmonary vasculature is unremarkable. There is no pleural effusion. There is no pneumothorax. IMPRESSION: Interstitial airspace opacities which could represent sequela of pulmonary edema, atypical infection, chronic lung changes/disease. 9 mm right midlung nodular density. Previous CT demonstrated multiple nodules concerning for metasta tic disease. Correlate with clinical history / oncology history.
[2025-02-28 15:23] LABS: Alanine Aminotransferase 38 U/L (7-40); Albumin 4.0 g/dL (3.2-4.8); Alkaline Phosphatase 99 U/L (46-116); Anion Gap 12 (5-15); BUN/Creatinine Ratio 41.7 (10.0-20.0); Calcium 9.5 mg/dL (8.7-10.4); Carbon Dioxide 26 mmol/L (20-31); Glucose 96 mg/dL (74-106); Potassium 3.7 mmol/L (3.5-5.1); Total Protein 6.3 g/dL (5.7-8.2)
[2025-02-28 15:24] LABS: Bilirubin, Total 0.2 mg/dL (0.2-1.0); Blood Urea Nitrogen 35 mg/dL (9-23); Chloride 98 mmol/L (98-107); Magnesium 1.1 mg/dL (1.6-2.6); Sodium 136 mmol/L (136-145)
[2025-02-28 18:15] VITALS: BP 112/78; TEMP 97.8
[2025-02-28 18:36] VITALS: PULSE 89; RESP 18; O2SAT 94
--- NOTE | 2025-03-03 10:44 | ECG ---
[facility] Test Date: 2025-02-28 Test Time: 13:40:44 Pat Name: MILES TOWNSEND Department: Room: Gender: F Housekeeper Supervisor: JESSIKA : 1945 Requested By: JOSE ANTONIO CARDONA Order Number: [id number] Reading MD: Measurements Intervals [place] Rate: 103 P: 85 KS: 134 QRS: 69 QRSD: 77 T: 59 QT: 323 QTc: 423 Interpretive Statements Sinus tachycardia Borderline T abnormalities, anterior leads Baseline wander in lead(s) V2 Please click the below link to view image of tracing.
== END 2025-02-28 18:48 | disposition home or self-care (01) ==
LOC: ER 13:26
DX: J44.1 Chronic obstructive pulmonary disease with (acute) exacerbation (principal); I11.0 Hypertensive heart disease with heart failure; I50.9 Heart failure, unspecified; E78.5 Hyperlipidemia, unspecified; Z98.890 Other specified postprocedural states; Z90.49 Acquired absence of other specified parts of digestive tract; Z90.89 Acquired absence of other organs; Z99.81 Dependence on supplemental oxygen
CPT/HCPCS: 36415; 71045; 80053; 83735; 84484; 85025; 93005; 94640; 99291